=== PATIENT | female | born 1995 | race American Indian/Alaskan Native ===

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

== ENCOUNTER 2017-01-07 23:21 | Emergency (ER) | payer OTHER ==
[~2017-01-07] VITALS: Ht 160 cm; Wt 81.6 kg
[~2017-01-07 23:21] MED LIST changes: +VISTARIL25 MG PO
[2017-01-08] MEDS ORDERED: OMEPRAZOLE20 MG PO (02:24)
--- NOTE | 2017-01-08 08:39 | EKG ---
[facility] [address] [place], [place] [address] Signed Normal sinus rhythm Normal ECG No previous ECGs available Confirmed by DMITRY JAQUEZ MD ([id number]) on 01/08/2017 8:39:47 AM Electronically Signed By: DMITRY JAQUEZ MD 01/08/17 0839 PATIENT NAME: YUE KING Electrocardiogram DATE OF : [birth year] PHYSICIAN: DMITRY JAQUEZ MD REPORT #: [id number] REPORT IS CONFIDENTIAL AND NOT TO BE RELEASED WITHOUT AUTHORIZATION
[2017-04-15] MEDS ORDERED: PYRIDIUM200 MG PO (23:28)
[2017-04-15] MEDS ORDERED: MACROBID 100 M100 MG PO (23:28)
== END 2017-01-08 02:41 | disposition home or self-care (01) ==
LOC: ED 23:21
DX: S80.02XA Contusion of left knee, initial encounter (principal); S80.11XA Contusion of right lower leg, initial encounter; G61.0 Guillain-Barre syndrome; F17.200 Nicotine dependence, unspecified, uncomplicated; Z88.8 Allergy status to other drugs, medicaments and biological substances; Z79.899 Other long term (current) drug therapy; V03.90XA Pedestrian on foot injured in collision with car, pick-up truck or van, unspecified whether traffic or nontraffic accident, initial encounter
CPT/HCPCS: 36415; 71010; 80053; 84484; 85025; 93005; 93010; 99284

== ENCOUNTER 2017-03-02 17:14 | Emergency (ER) | payer OTHER ==
[~2017-03-02] VITALS: Ht 160 cm; Wt 81.7 kg
[2017-04-15] MEDS ORDERED: MACROBID 100 M100 MG PO (23:28)
[2017-04-15] MEDS ORDERED: PYRIDIUM200 MG PO (23:28)
== END 2017-03-02 17:40 | disposition home or self-care (01) ==
LOC: ED 17:14
DX: Z00.8 Encounter for other general examination (principal)

== ENCOUNTER 2017-04-25 18:02 | Emergency (ER) | payer OTHER ==
[~2017-04-25] VITALS: Ht 160 cm; Wt 81.7 kg
[~2017-04-25 18:02] MED LIST changes: +PYRIDIUM200 MG PO
--- NOTE | 2017-04-25 22:26 | EKG ---
[facility] [address] [place] [address] Signed Normal sinus rhythm Normal ECG When compared with ECG of 07-JAN-2017 23:26, No significant change was found Confirmed by DMITRY JAQUEZ MD ([id number]) on 04/25/2017 10:26:22 PM Electronically Signed By: DMITRY JAQUEZ MD 04/25/17 2226 PATIENT NAME: YUE KING Electrocardiogram DATE OF : [birth year] PHYSICIAN: DMITRY JAQUEZ MD REPORT #: [id number] REPORT IS CONFIDENTIAL AND NOT TO BE RELEASED WITHOUT AUTHORIZATION
== END 2017-04-25 20:02 | disposition home or self-care (01) ==
LOC: ED 18:02
DX: R07.2 Precordial pain (principal); F17.200 Nicotine dependence, unspecified, uncomplicated; Z88.6 Allergy status to analgesic agent; Z79.899 Other long term (current) drug therapy
CPT/HCPCS: 71020; 80053; 84484; 85025; 93005; 93010; 99284

== ENCOUNTER 2017-05-05 08:04 | Emergency (ER) | payer OTHER ==
[~2017-05-05] VITALS: Ht 160 cm; Wt 72.6 kg
[2017-05-05] MEDS ORDERED: NORCO 5-325 TA1 EACH PO (09:06)
--- OUTSIDE RECORDS SUMMARY | 2017-05-05 09:06 | XMS | Clinical Summary ---
Demographics + + + | Address | [address] | | | [place] [address] | + + + | Home Phone | | + + + | Preferred Language | Unknown | + + + | Marital Status | Single | + + + | Church Affiliation | NON | + + + | Race | Unknown | + + + | Ethnic Group | Not or | + + + Author + + + | Author | [facility] | + + + | Organization | [facility] | + + + | Address | Unknown | + + + | Phone | Unavailable | + + + Support + + + + + | Name | Relationship | Address | Phone | + + + + + | RUDOLPH, | ECON | [address] | | | YUE | | [place] | | | | | [address] | | + + + + + Care Team Providers + +------+ + | Care Patternmaker Hand Name | Role | Phone | + +------+ + | Emma Arellano MD | PP | Unavailable | + +------+ + Source Comments SALOMÓN is fully live on both [facility] and [facility] InPatient.[facility] Allergies No Known Allergies Current Medications No known medications Active Problems + + + | Problem | Noted Date | + + + | Gait abnormality | 08/10/2012 | + + + | Lower extremity weakness | 08/10/2012 | + + + | Lower extremity pain | 08/10/2012 | + + + Social History + +-------+ +--------+------+ | Tobacco Use | Types | Packs/Day | Years | Date | | | | | Used | | + +-------+ +--------+------+ | Current Every Day | | | | | | Smoker | | | | | + +-------+ +--------+------+ + + + | Sex Assigned at | Date Recorded | | | | + + + | Not on file | | + + + Last Filed Vital Signs + + + + | Vital Sign | Reading | Time Taken | + + + + | Blood Pressure | 118/76 | 07/31/2012 10:04 AM PDT | + + + + | Pulse | 81 | 07/31/2012 10:04 AM PDT | + + + + | Temperature | - | - | + + + + | Respiratory Rate | - | - | + + + + | Oxygen Saturation | - | - | + + + + | Inhaled Oxygen | - | - | | Concentration | | | + + + + | Weight | 60.6 kg (133 lb 9.6 | 07/31/2012 10:04 AM PDT | | | oz) | | + + + + | Height | 160.6 cm (5' 3.23") | 07/31/2012 10:04 AM PDT | + + + + | Body Mass Index | 23.5 | 07/31/2012 10:04 AM PDT | + + + + Plan of Treatment + + + + + | Health Maintenance | Due Date | Last Done | Comments | + + + + + | INFLUENZA VACCINE | | | | | (FLU SHOT) | 7 | | | + + + + + Results Not on filefrom Last 3 Months
== END 2017-05-05 10:12 | disposition home or self-care (01) ==
LOC: ED 08:04
PROC: 2W3CX1Z Immobilization of Right Lower Arm using Splint (ICD-10-PCS; principal; 2017-05-05)
DX: S62.304A Unspecified fracture of fourth metacarpal bone, right hand, initial encounter for closed fracture (principal); S62.306A Unspecified fracture of fifth metacarpal bone, right hand, initial encounter for closed fracture; F17.200 Nicotine dependence, unspecified, uncomplicated; Z88.6 Allergy status to analgesic agent; W22.01XA Walked into wall, initial encounter
CPT/HCPCS: 29125; 73130; 99283

== ENCOUNTER 2017-05-07 14:50 | Emergency (ER) | payer OTHER ==
[~2017-05-07] VITALS: Ht 160 cm; Wt 72.6 kg
[~2017-05-07 14:50] MED LIST changes: +NORCO 5-325 TA1 EACH PO
== END 2017-05-07 15:13 | disposition home or self-care (01) ==
LOC: ED 14:50
DX: S62.304D Unspecified fracture of fourth metacarpal bone, right hand, subsequent encounter for fracture with routine healing (principal); S62.306D Unspecified fracture of fifth metacarpal bone, right hand, subsequent encounter for fracture with routine healing; F17.200 Nicotine dependence, unspecified, uncomplicated; W22.8XXD Striking against or struck by other objects, subsequent encounter; Z88.6 Allergy status to analgesic agent
CPT/HCPCS: 99282

== ENCOUNTER 2017-07-31 20:56 | Emergency (ER) | payer OTHER ==
[~2017-07-31] VITALS: Ht 160 cm; Wt 72.6 kg
--- OUTSIDE RECORDS SUMMARY | ~2017-07-31 | XMS | Clinical Summary ---
Demographics + + + | Address | [address] | | | [place] [address] | + + + | Home Phone | | + + + | Preferred Language | Unknown | + + + | Marital Status | Single | + + + | Samaritan Affiliation | NON | + + + [...] [place] | | | | | [address] | | + + + + + Care Team Providers + +------+ + | Care Drill Runner Helper Name | Role | Phone | + +------+ + | Emma Arellano MD | PP | Unavailable | + +------+ + Source Comments SALOMÓN is fully live on both [facility] and [facility] InPatient.[facility] Allergies No Known Allergies Current Medications No [...]
--- OUTSIDE RECORDS SUMMARY | ~2017-07-31 | XMS | Clinical Summary ---
Demographics + + + | Address | [address] | | | [place] [address] | + + + | Home Phone | | + + + | Preferred Language | Unknown | + + + | Marital Status | Single | + + + | Mu-Ism Affiliation | NON | + + + [...] [place] | | | | | [address] | | + + + + + Care Team Providers + +------+ + | Care Tool Mechanic Name | Role | Phone | + +------+ + | Emma Arellano MD | PP | Unavailable | + +------+ + Source Comments SALOMÓN is fully live on both [facility] and [facility] InPatient.[facility] Allergies No Known Allergies Current Medications No [...]
[2017-07-31] MEDS ORDERED: BACTRIM DS TAB1 EACH PO (21:36)
== END 2017-07-31 21:55 | disposition home or self-care (01) ==
LOC: ED 20:56
PROC: 0H9BXZZ Drainage of Right Upper Arm Skin, External Approach (ICD-10-PCS; principal; 2017-07-31)
DX: L02.411 Cutaneous abscess of right axilla (principal); Z87.891 Personal history of nicotine dependence
CPT/HCPCS: 10060; 87070; 87077; 87186; 87205; 99283

== ENCOUNTER 2017-09-07 19:20 | Emergency (ER) | payer OTHER ==
--- OUTSIDE RECORDS SUMMARY | ~2017-09-07 | XMS | Clinical Summary ---
Demographics + + + | Address | [address] | | | [place] [address] | + + + | Home Phone | | + + + | Preferred Language | Unknown | + + + | Marital Status | Single | + + + | Confucianist Affiliation | Unknown | + + + | Race | Unknown | + + + | Ethnic Group | Unknown | + + + Author + + + | Author | [facility] | | | and [place] | + + + | Organization | [facility] | | | and [place] | + + + | Address | Unknown | + + + | Phone | Unavailable | + + + Support + + +---------+ + | Name | Relationship | Address | Phone | + + +---------+ + | SALVADOR QUEZADA ECON | Unknown | | + + +---------+ + Care Team Providers + +------+ + | Care Product Line Manager Name | Role | Phone | + +------+ + PP | Unavailable | + +------+ + Allergies Not on File Current Medications Not on file Active Problems Not [...] on file | | + + + Plan of Treatment + + + + + | Health Maintenance | Due Date | Last Done | Comments | + + + + + | Vaccine: HPV (1 of 3 | | | | | - Female 3 Dose | 9 | | | | Series) | | | | + + + + + | Vaccine: | | | | | Dtap/Tdap/Td (1 - | 7 | | | | Tdap) | | | | + + + + + | Vaccine: Influenza | | | | | (Season Ended) | 8 | | | + + + + + Results Not on filefrom Last 3 Months"
--- OUTSIDE RECORDS SUMMARY | ~2017-09-07 | XMS | Clinical Summary ---
Demographics + + + | Address | [address] | | | [place] [address] | + + + | Home Phone | | + + + | Preferred Language | Unknown | + + + | Marital Status | Single | + + + | Cheondoism Affiliation | NON | + + + [...] [place] | | | | | [address] | | + + + + + Care Team Providers + +------+ + | Care Aboriginal Education Teacher Name | Role | Phone | + +------+ + | Emma Arellano MD | PP | Unavailable | + +------+ + Source Comments SALOMÓN is fully live on both [facility] and [facility] InPatient.[facility] Allergies No Known Allergies Current Medications [...] | | | | (FLU SHOT) | 8 | | | + + + + + Results Not on filefrom Last 3 Months
--- OUTSIDE RECORDS SUMMARY | ~2017-09-07 | XMS | Clinical Summary ---
Demographics + + + | Address | [address] | | | [place] [address] | + + + | Home Phone | | + + + | Preferred Language | Unknown | + + + | Marital Status | Single | + + + | Hinduism Affiliation | NON | + + + [...] [place] | | | | | [address] | | + + + + + Care Team Providers + +------+ + | Care Community Director Name | Role | Phone | + +------+ + | Emma Arellano MD | PP | Unavailable | + +------+ + Source Comments SALOMÓN is fully live on both [facility] and [facility] InPatient.[facility] Allergies No Known Allergies Current Medications [...]
--- OUTSIDE RECORDS SUMMARY | ~2017-09-07 | XMS | Clinical Summary ---
Demographics + + + | Address | [address] | | | [place] [address] | + + + | Home Phone | | + + + | Preferred Language | Unknown | + + + | Marital Status | Single | + + + | Gnosticist Affiliation | Unknown | + + + | Race | Unknown | + + + | Ethnic Group | Unknown | + + + Author + + + | Author | [facility] | | | and [place] | + + + | Organization | [facility] | | | and [place] [...] Team Providers + +------+ + | Care Electrical Intern Name | Role | Phone | [...]
[~2017-09-07 19:20] MED LIST changes: +BACTRIM DS TAB1 EACH PO
[2017-09-07] MEDS ORDERED: NORCO 5-325 TA1 EACH PO (21:39)
== END 2017-09-07 21:50 | disposition home or self-care (01) ==
LOC: ED 19:20
DX: S16.1XXA Strain of muscle, fascia and tendon at neck level, initial encounter (principal); S40.011A Contusion of right shoulder, initial encounter; S00.83XA Contusion of other part of head, initial encounter; Z88.6 Allergy status to analgesic agent; Z87.891 Personal history of nicotine dependence; V49.9XXA Car occupant (driver) (passenger) injured in unspecified traffic accident, initial encounter
CPT/HCPCS: 70450; 71045; 71260; 72125; 73030; 74177; 80053; 81001; 82150; 82550; 83690; 84703; 85025; 86850; 86900; 86901; 99284; G0480; Q9967

== ENCOUNTER 2017-11-12 14:51 | Emergency (ER) | payer OTHER ==
[~2017-11-12] VITALS: Ht 160 cm; Wt 90.7 kg
== END 2017-11-12 15:24 | disposition home or self-care (01) ==
LOC: ED 14:51
DX: R50.9 Fever, unspecified (principal)

== ENCOUNTER 2019-01-21 17:20 | Emergency (ER) | payer OTHER ==
[~2019-01-21] VITALS: Ht 160 cm; Wt 99.8 kg
--- OUTSIDE RECORDS SUMMARY | 2019-01-21 17:24 | XMS ---
PreManage Notification: YUE KING Security Manager Process Excellence Events No recent Security Events currently on file CRITERIA MET - Group Notification - [facility] - Has Care Guidelines CARE PROVIDERS Christen Holley Primary Care Current ALHAJI PHONE: [phone] William Stanley Current PHONE: Unknown Don[place]on has no Care Guidelines for this patient. Care History Medical/Surgical 11/15/2017 [facility] HX: MARINELLI-BARRE, PERICARDITIS, ABSCESS R AXILLA 08/01/2017 [facility] - Patient can be seen during the week at [facility] for any non emergent medical needs. - [facility] is willing to see patients same day for an apt if patient calls first thing in the morning. - Please refer patient to [facility] for non emergent medical needs. Care Recommendation: This patient has had 5 or more Emergency Department visits in the last 12 months.\T\nbsp; Patient requires education on the scope and purpose of the ED as an acute care provider not a Primary Care Provider and should not be utilized for chronic conditions.\T\nbsp; If patient returns to ED please contact Community Health Worker Nena at [phone]. These are guidelines and the provider should exercise clinical judgment when providing care. EBennieD. VISIT COUNT (12 MO.) 1 [facility] TOTAL 1 NOTE: Visits indicate total known visits. ED/UCC VISIT TRACKING (12 MO.) 01/21/2019 17:21 [facility] [place] TYPE: Emergency COMPLAINT: - ABD PAIN INPATIENT VISIT TRACKING (12 MO.) No inpatient visits to display in this time frame [email or web address]
[2019-01-21] MEDS ORDERED: DICYCLOMINE HCL20 MG PO (21:54)
== END 2019-01-21 22:15 | disposition home or self-care (01) ==
LOC: ED 17:20
DX: R10.31 Right lower quadrant pain (principal); F17.200 Nicotine dependence, unspecified, uncomplicated; Z88.6 Allergy status to analgesic agent
CPT/HCPCS: 74177; 80053; 81001; 83690; 83735; 84703; 85025; 96361; 99284-25; J2270; J2405; J7030; Q9967

== ENCOUNTER 2019-03-01 08:16 | Emergency (ER) | payer OTHER ==
[~2019-03-01] VITALS: Ht 160 cm; Wt 99.8 kg
--- OUTSIDE RECORDS SUMMARY | ~2019-03-01 | XMS | Encounter Summary ---
Demographics + + + | Address | [address] | | | [place] [address] | + + + | Home Phone | | + + + | Preferred Language | Unknown | + + + | Marital Status | Single | + + + | Baptist Affiliation | NON | + + + | Race | Unknown | + + + | Ethnic Group | Not or | + + + Author + + + | Author | [facility] | + + + | Organization | [facility] | + + + | Address | Unknown | + + + | Phone | Unavailable | + + + Support + + + + + | Name | Relationship | Address | Phone | + + + + + | Ede Morales | ECON | [address] | | | | | [place] | | | | | [address] | | + + + + + Care Team Providers + +------+ + | Care Director Of Market Intelligence Name | Role | Phone | + +------+ + | Emma Arellano MD | PCP | | + +------+ + Encounter Details +--------+ + + + + | Date | Type | Department | Care Team | Description | +--------+ + + + + | 01/08/ | Telephone | Pediatric | Gillian Ernandez | | | 2013 | | Neurology at | MD Antwon [address] | | | | | [place] | [address] | | | | | [facility] | [facility] [place] | | | | | [address] | [address] | | | | | Amberly Orta Mailcode: | [phone] | | | | | [address] [place] | | | | | | [place], [place] | | | | | | [address] | | | | | | [phone] | | | +--------+ + + + + Social History + +-------+ +--------+------+ | Tobacco Use | Types | Packs/Day | Years | Date | | | | | Used | | + +-------+ +--------+------+ | Current Every Day | | | | | | Smoker | | | | | + +-------+ +--------+------+ + + +---------+ + | Alcohol Use | Drinks/Week | oz/Week | Comments | + + +---------+ + | Not Asked | | | | + + +---------+ + + + + | Sex Assigned at [...]
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
--- OUTSIDE RECORDS SUMMARY | ~2019-03-01 | XMS | Encounter Summary ---
Demographics + + + | Address | [address] | | | [place] [address] | + + + | Home Phone | | + + + | Preferred Language | Unknown | + + + | Marital Status | Single | + + + | Jain Affiliation | NON | + + + | Race | Unknown | + + + | Ethnic Group | Not or | + + + Author + + + | Author | [facility] | + + + | Organization | [facility] | + + + | Address | Unknown | + + + | Phone | Unavailable | + + + Support + + + + + | Name | Relationship | Address | Phone | + + + + + | Ede Morales | ECON | [address] | | | | | [place] | | | | | [address] | | + + + + + Care Team Providers + +------+ + | Care Printed Circuit Board Pcb Designer Name | Role | Phone | + +------+ + PCP | Unavailable | + +------+ + Encounter Details +--------+ + + + + | Date | Type | Department | Care Team | Description | +--------+ + + + + | 03/28/ | Results | [facility] | Bibi Cannon MD | | | 2001 | Only | [address] [facility] | [address] | | | | | [place] | [facility] | | | | | [address] | [place] [address] | | | | | [phone] | [phone] | | | | | | | [...] as of this encounter Plan of Treatment + + +--------+ + + | Name | Type | Priori | Associated Diagnoses | Date/Time | | | | ty | | | + + +--------+ + + | SEDATION IN 9N | Procedures | Routin | | 03/28/2002 10:55 AM | | | | e | | PST | + + +--------+ + + | SEDATION IN MRI | Procedures | Routin | | 03/29/2002 3:00 PM | | | | e | | PST | + + +--------+ + + documented as of this encounter Procedures + +--------+ + + + | Procedure Name | Priori | Date/Time | Associated Diagnosis | Comments | | | ty | | | | + +--------+ + + + | CHEMISTRY MASTER | Routin | 04/02/2002 | | Results for this | | PANEL | e | 6:01 AM | | procedure are in the | | | | PST | | results section. | + +--------+ + + + | BASIC METABOLIC SET | Routin | 04/02/2002 | | Results for this | | (NA, K, CL, TCO2, | e | 6:01 AM | | procedure are in the | | BUN, CR, GLU, CA) | | PST | | results section. | + +--------+ + + + | BASIC METABOLIC SET | Routin | 04/01/2002 | | Results for this | | (NA, K, CL, TCO2, | e | 7:00 AM | | procedure are in the | | BUN, CR, GLU, CA) | | PST | | results section. | + +--------+ + + + | MRI SPINE LUMBAR WO | Priori | 03/29/2002 | | Results for this | | CONT | ty | 3:25 PM | | procedure are in the | | | | PST | | results section. | + +--------+ + + + | MRI SPINE CERVICAL | Priori | 03/29/2002 | | Results for this | | WO CONTRAST | ty | 3:25 PM | | procedure are in the | | | | PST | | results section. | + +--------+ + + + | MRI PELVIS WWO | Priori | 03/29/2002 | | Results for this | | CONTRAST | ty | 3:25 PM | | procedure are in the | | | | PST | | results section. | + +--------+ + + + | MRI SPINE THORACIC | Priori | 03/29/2002 | | Results for this | | WO CONTRST | ty | 3:23 PM | | procedure are in the | | | | PST | | results section. | + +--------+ + + + | SEDATION IN MRI | Routin | 03/29/2002 | | | | | e | 3:00 PM | | | | | | PST | | | + +--------+ + + + | X-RAY PELVIS 1 VIEW | Priori | 03/28/2002 | | Results for this | | | ty | 2:49 PM | | procedure are in the | | | | PST | | results section. | + +--------+ + + + | SEDATION IN 9N | Routin | 03/28/2002 | | | | | e | 10:55 AM | | | | | | PST | | | + +--------+ + + + | CSF INFO PANEL | Routin | 03/28/2002 | | Results for this | | | e | 10:45 AM | | procedure are in the | | | | PST | | results section. | + +--------+ + + + | GLUCOSE, CSF | Routin | 03/28/2002 | | Results for this | | | e | 10:45 AM | | procedure are in the | | | | PST | | results section. | + +--------+ + + + | CELL COUNT DIFF, CSF | Routin | 03/28/2002 | | Results for this | | | e | 10:45 AM | | procedure are in the | | | | PST | | results section. | + +--------+ + + + | PROTEIN, CSF | Routin | 03/28/2002 | | Results for this | | | e | 10:45 AM | | procedure are in the | | | | PST | | results section. | + +--------+ + + + documented in this encounter Results BASIC METABOLIC SET (04/02/2002 6:01 AM PST) + + + + + + | Component | Value | Ref Range | Performed | Pathologist | | | | | At | Signature | + + + + + + | GLUCOSE, | See cmnt | 60 - 100 mg/dL | [facility] | | | PLASMA | | | DEPARTMENT | | | (LAB) | | | OF | | | | | | PATHOLOGY | | + + + + + + | BUN, PLASMA | See cmnt | 6 - 20 mg/dL | [facility] | | | (LAB) | | | DEPARTMENT | | | | | | OF | | | | | | PATHOLOGY | | + + + + + + | CREATININE | See cmnt | 0.3 - 0.8 mg/dL | [facility] | | | PLASMA | | | DEPARTMENT | | | (LAB) | | | OF | | | | | | PATHOLOGY | | + + + + + + | SODIUM, | See cmnt | 136 - 145 | [facility] | | | PLASMA | | mmol/L | DEPARTMENT | | | (LAB) | | | OF | | | | | | PATHOLOGY | | + + + + + + | POTASSIUM, | See cmnt | 3.5 - 5.1 | [facility] | | | PLASMA | | mmol/L | DEPARTMENT | | | (LAB) | | | OF | | | | | | PATHOLOGY | | + + + + + + | CHLORIDE, | See cmnt | 98 - 107 mmol/L | [facility] | | | PLASMA | | | DEPARTMENT | | | (LAB) | | | OF | | | | | | PATHOLOGY | | + + + + + + | TOTAL CO2, | See cmnt | 23 - 29 mmol/L | [facility] | | | PLASMA | | | DEPARTMENT | | | (LAB) | | | OF | | | | | | PATHOLOGY | | + + + + + + | CALCIUM, | See cmnt | 8.5 - 10.5 | [facility] | | | PLASMA | | mg/dL | DEPARTMENT | | | (LAB) | | | OF | | | | | | PATHOLOGY | | + + + + + + + + | Specimen | + + | | + + + + + | Narrative | Performed At | + + + | [id number] Erroneous request. | [facility] | | | DEPARTMENT OF | | | PATHOLOGY | + + + + + + + + | Performing | Address | City/State/Zipcode | Phone Number | | Organization | | | | + + + + + | [facility] DEPARTMENT OF | [facility] [facility] | [place] [address] | | | PATHOLOGY | [address] | | | + + + + + | [facility] DEPARTMENT OF | [address] [facility] | [place] [address] | | | PATHOLOGY | [address] | | | + + + + + CHEMISTRY MASTER PANEL (04/02/2002 6:01 AM PST) + + | Specimen | + + | | + + + + + | Narrative | Performed At | + + + | [id number] Erroneous request. | [facility] | | | DEPARTMENT OF | | | PATHOLOGY | + + + + + + + + | Performing | Address | City/State/Zipcode | Phone Number | | Organization | | | | + + + + + | [facility] DEPARTMENT OF | [address] | [place] [address] | | | PATHOLOGY | [address] | | | + + + + + | [facility] DEPARTMENT OF | [address] | [place] [address] | | | PATHOLOGY | [address] | | | + + + + + BASIC METABOLIC SET (04/01/2002 7:00 AM PST) + +-------+ + + + | Component | Value | Ref Range | Performed | Pathologist | | | | | At | Signature | + +-------+ + + + | GLUCOSE, | 93 | 60 - 100 mg/dL | [facility] | | | PLASMA | | | DEPARTMENT | | | (LAB) | | | OF | | | | | | PATHOLOGY | | + +-------+ + + + | BUN, PLASMA | 13 | 6 - 20 mg/dL | [facility] | | | (LAB) | | | DEPARTMENT | | | | | | OF | | | | | | PATHOLOGY | | + +-------+ + + + | CREATININE | 0.3 | 0.3 - 0.8 mg/dL | [facility] | | | PLASMA | | | DEPARTMENT | | | (LAB) | | | OF | | | | | | PATHOLOGY | | + +-------+ + + + | SODIUM, | 137 | 136 - 145 | [facility] | | | PLASMA | | mmol/L | DEPARTMENT | | | (LAB) | | | OF | | | | | | PATHOLOGY | | + +-------+ + + + | POTASSIUM, | 4.5 | 3.5 - 5.1 | [facility] | | | PLASMA | | mmol/L | DEPARTMENT | | | (LAB) | | | OF | | | | | | PATHOLOGY | | + +-------+ + + + | CHLORIDE, | 106 | 98 - 107 mmol/L | [facility] | | | PLASMA | | | DEPARTMENT | | | (LAB) | | | OF | | | | | | PATHOLOGY | | + +-------+ + + + | TOTAL CO2, | 23 | 23 - 29 mmol/L | [facility] | | | PLASMA | | | DEPARTMENT | | | (LAB) | | | OF | | | | | | PATHOLOGY | | + +-------+ + + + | CALCIUM, | 10.0 | 8.5 - 10.5 | [facility] | | | PLASMA | | mg/dL | DEPARTMENT | | | (LAB) | | | OF | | | | | | PATHOLOGY | | + +-------+ + + + + + | Specimen | + + | | + + + + + + + | Performing | Address | City/State/Zipcode | Phone Number | | Organization | | | | + + + + + | [facility] | [address] [facility] | [place] [address] | | | PATHOLOGY | [address] | | | + + + + + | [facility] | [facility] [facility] | [facility] [place] [address] | | | PATHOLOGY | [address] | | | + + + + + MRI SPINE LUMBAR WO CONT (03/29/2002 3:25 PM PST) + + + + + + | Component | Value | Ref Range | Performed | Pathologist | | | | | At | Signature | + + + + + + | MR LUMBAR | Radiologist 1: JUS, | | | | | SPINE WO | Ed VELAZQUEZ-Radiologist | | | | | CONT | 2: CAROLINE LUU, | | | | | | EdMRI C SPINE: | | | | | | 03/29/2002 Dictated | | | | | | 03/29/2002 CLINICAL | | | | | | 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 | | | | | | TECHNIQUE: Sagittal and | | | | | | axial T1 and fast-spin | | | | | | echo T2 images | | | | | | wereobtained of the | | | | | | cervical, thoracic and | | | | | | lumbar spine. | | | | | | COMPARISON: MRI of the | | | | | | pelvis with contrast | | | | | | performed of the | | | | | | sameday. FINDINGS: The | | | | | | cervical, thoracic and | | | | | | lumbar vertebrae are | | | | | | normallyaligned with | | | | | | normal marrow signal for | | | | | | the patient's age. | | | | | | The spinalcord has | | | | | | normal signal intensity | | | | | | and appearance with the | | | | | | conusterminating at | | | | | | T12-L1. The visualized | | | | | | paraspinal soft tissues | | | | | | areunremarkable. On | | | | | | comparison with the MR | | | | | | of the pelvis performed | | | | | | withcontrast, | | | | | | enhancement of the nerve | | | | | | roots of L5 and S1 was | | | | | | seenbilaterally. | | | | | | Contrast was not given | | | | | | for the cervical, | | | | | | thoracic andlumbar spine | | | | | | examinations. | | | | | | IMPRESSION: Enhancing | | | | | | lumbosacral nerve roots. | | | | | | This can be seen in | | | | | | Guillian-Boston. END OF | | | | | | IMPRESSION: | | | | + + + + + + + + | Specimen | + + | | + + + +---------+ + + | Performing | Address | City/State/Zipcode | Phone Number | | Organization | | | | + +---------+ + + | [facility] DEPARTMENT OF | | | | | RADIOLOGY | | | | + +---------+ + + MRI SPINE CERVICAL WO CONTRAST (03/29/2002 3:25 PM PST) + + + + + + | Component | Value | Ref Range | Performed | Pathologist | | | | | At | Signature | + + + + + + | MR CERVICAL | Radiologist 1: JUS, | | | | | SPINE WO | Ed VELAZQUEZ-Radiologist | | | | | CONTRAST | 2: CAROLINE LUU, | | | | | | EdMRI C SPINE: | | | | | | 03/29/2002 Dictated | | | | | | 03/29/2002 CLINICAL | | | | | | 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 | | | | | | TECHNIQUE: Sagittal and | | | | | | axial T1 and fast-spin | | | | | | echo T2 images | | | | | | wereobtained of the | | | | | | cervical, thoracic and | | | | | | lumbar spine. | | | | | | COMPARISON: MRI of the | | | | | | pelvis with contrast | | | | | | performed of the | | | | | | sameday. FINDINGS: The | | | | | | cervical, thoracic and | | | | | | lumbar vertebrae are | | | | | | normallyaligned with | | | | | | normal marrow signal for | | | | | | the patient's age. | | | | | | The spinalcord has | | | | | | normal signal intensity | | | | | | and appearance with the | | | | | | conusterminating at | | | | | | T12-L1. The visualized | | | | | | paraspinal soft tissues | | | | | | areunremarkable. On | | | | | | comparison with the MR | | | | | | of the pelvis performed | | | | | | withcontrast, | | | | | | enhancement of the nerve | | | | | | roots of L5 and S1 was | | | | | | seenbilaterally. | | | | | | Contrast was not given | | | | | | for the cervical, | | | | | | thoracic andlumbar spine | | | | | | examinations. | | | | | | IMPRESSION: Enhancing | | | | | | lumbosacral nerve roots. | | | | | | This can be seen in | | | | | | Gladys. END OF | | | | | | IMPRESSION: | | | | + + + + + + + + | Specimen | + + | | + + + +---------+ + + | Performing | Address | City/State/Zipcode | Phone Number | | Organization | | | | + +---------+ + + | [facility] DEPARTMENT OF | | | | | RADIOLOGY | | | | + +---------+ + + MRI PELVIS WWO CONTRAST (03/29/2002 3:25 PM PST) + + + + + + | Component | Value | Ref Range | Performed | Pathologist | | | | | At | Signature | + + + + + + | MR PELVIS | Radiologist 1: IB, | | | | | WWO | GIAN Goodrich-Radiologist | | | | | CONTRAST | 2: GIAN PAT | | | | | | L.MRI OF THE PELVIS: | | | | | | 03/29/2002 | | | | | | Dictated: 03/29/2002 | | | | | | COMPARISON: No | | | | | | comparisons. CLINICAL | | | | | | HISTORY: [id number]-[id number]-awo | | | | | | female with bilateral | | | | | | hip pain. PROCEDURE: | | | | | | The following imaging | | | | | | sequences were | | | | | | obtained:1. Coronal | | | | | | T1.2. Axial and | | | | | | coronal STIR.3. Axial | | | | | | and coronal T1 | | | | | | post-gadolinium with fat | | | | | | suppression (3 | | | | | | cccontrast). FINDINGS: | | | | | | On precontrast images, | | | | | | there is normal marrow | | | | | | signal in thepelvis. | | | | | | Both hip joints are | | | | | | maintained. There is | | | | | | no abnormal jointfluid. | | | | | | There are scattered | | | | | | small right external | | | | | | iliac lymph nodes.No | | | | | | abnormal enlarged lymph | | | | | | nodes or mass is seen | | | | | | within the pelvis. There | | | | | | is subtle asymmetric | | | | | | signal abnormality and | | | | | | enhancement of | | | | | | theposterior-inferior | | | | | | left sacrum abutting the | | | | | | sacroiliac joint. There | | | | | | isno fluid within the | | | | | | sacroiliac joints. | | | | | | There is subtle | | | | | | enhancementin the left | | | | | | piriformis and left | | | | | | gluteal muscles, and | | | | | | very subtleenhancement | | | | | | of the right piriformis. | | | | | | There is no evidence | | | | | | of abscess.The remaining | | | | | | soft tissues are | | | | | | unremarkable. | | | | | | IMPRESSION: 1. Subtle | | | | | | signal abnormality and | | | | | | enhancement involving | | | | | | the leftposterior | | | | | | sacrum, piriformis, and | | | | | | gluteal muscle groups. | | | | | | There isprobable | | | | | | subtle enhancement of | | | | | | the right piriformis as | | | | | | well. This | | | | | | mayrepresent early | | | | | | myositis or | | | | | | sacroiliitis, possibly | | | | | | inflammatory (HBLA27 | | | | | | spondyloarthropathy) or | | | | | | infectious. 2. No | | | | | | evidence of | | | | | | osteonecrosis of the | | | | | | hips. 3. No evidence | | | | | | of abscess. END OF | | | | | | IMPRESSION: | | | | + + + + + + + + | Specimen | + + | | + + + +---------+ + + | Performing | Address | City/State/Zipcode | Phone Number | | Organization | | | | + +---------+ + + | [facility] DEPARTMENT OF | | | | | RADIOLOGY | | | | + +---------+ + + MRI SPINE THORACIC WO CONTRST (03/29/2002 3:23 PM PST) + + + + + + | Component | Value | Ref Range | Performed | Pathologist | | | | | At | Signature | + + + + + + | MR THORACIC | Radiologist 1: JUS | | | | | SPINE WO | Ed VELAZQUEZ-Radiologist | | | | | CONTRST | 2: CAROLINE LUU | | | | | Tiffany WardMRI C SPINE: | | | | | | 03/29/2002 Dictated | | | | | | 03/29/2002 CLINICAL | | | | | | 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 | | | | | | TECHNIQUE: Sagittal and | | | | | | axial T1 and fast-spin | | | | | | echo T2 images | | | | | | wereobtained of the | | | | | | cervical, thoracic and | | | | | | lumbar spine. | | | | | | COMPARISON: MRI of the | | | | | | pelvis with contrast | | | | | | performed of the | | | | | | sameday. FINDINGS: The | | | | | | cervical, thoracic and | | | | | | lumbar vertebrae are | | | | | | normallyaligned with | | | | | | normal marrow signal for | | | | | | the patient's age. | | | | | | The spinalcord has | | | | | | normal signal intensity | | | | | | and appearance with the | | | | | | conusterminating at | | | | | | T12-L1. The visualized | | | | | | paraspinal soft tissues | | | | | | areunremarkable. On | | | | | | comparison with the MR | | | | | | of the pelvis performed | | | | | | withcontrast, | | | | | | enhancement of the nerve | | | | | | roots of L5 and S1 was | | | | | | seenbilaterally. | | | | | | Contrast was not given | | | | | | for the cervical, | | | | | | thoracic andlumbar spine | | | | | | examinations. | | | | | | IMPRESSION: Enhancing | | | | | | lumbosacral nerve roots. | | | | | | This can be seen in | | | | | | Guillian-Boston. END OF | | | | | | IMPRESSION: | | | | + + + + + + + + | Specimen | + + | | + + + +---------+ + + | Performing | Address | City/State/Zipcode | Phone Number | | Organization | | | | + +---------+ + + | [facility] DEPARTMENT OF | | | | | RADIOLOGY | | | | + +---------+ + + PELVIS 1 VIEW (03/28/2002 2:49 PM PST) + + + + + + | Component | Value | Ref Range | Performed | Pathologist | | | | | At | Signature | + + + + + + | PELVIS 1 | Radiologist 1: MARJORIE, | | | | | VIEW | Allie HARRINGTON M.D.AP | | | | | | PELVIS: 03/28/2002 | | | | | | Dictated 03/28/2002 | | | | | | COMPARISON: None. | | | | | | HISTORY: Hip pain. | | | | | | FINDINGS: AP | | | | | | pelvis is obtained with | | | | | | the hips partially | | | | | | flexed andabducted. | | | | | | Both hips appear | | | | | | normal in develop and | | | | | | alignment. There isno | | | | | | evidence for | | | | | | osteonecrosis. Pelvic | | | | | | ring appears normal. | | | | | | Gonadalshield obscures | | | | | | the sacrum. IMPRESSION: | | | | | | Normal bilateral hip | | | | | | radiographs. END OF | | | | | | IMPRESSION: | | | | | | | | | | + + + + + + + + | Specimen | + + | | + + + +---------+ + + | Performing | Address | City/State/Zipcode | Phone Number | | Organization | | | | + +---------+ + + | [facility] DEPARTMENT OF | | | | | RADIOLOGY | | | | + +---------+ + + CSF INFO PANEL (03/28/2002 10:45 AM PST) + + + + + + | Component | Value | Ref Range | Performed | Pathologist | | | | | At | Signature | + + + + + + | CSF | Clear | Clear | [facility] | | | APPEARANCE | | | DEPARTMENT | | | | | | OF | | | | | | PATHOLOGY | | + + + + + + | CSF COLOR | Colorless | Colorless | [facility] | | | | | | DEPARTMENT | | | | | | OF | | | | | | PATHOLOGY | | + + + + + + | CSF TUBE | Tube 2 | | [facility] | | | NUMBER | | | DEPARTMENT | | | | | | OF | | | | | | PATHOLOGY | | + + + + + + + + | Specimen | + + | | + + + + + + + | Performing | Address | City/State/Zipcode | Phone Number | | Organization | | | | + + + + + | [facility] | [facility] | [place] [address] | | | PATHOLOGY | [address] | | | + + + + + | [facility] | [facility] | [place] [address] | | | PATHOLOGY | [address] | | | + + + + + GLUCOSE, CSF (03/28/2002 10:45 AM PST) + +-------+ + + + | Component | Value | Ref Range | Performed | Pathologist | | | | | At | Signature | + +-------+ + + + | GLUCOSE CSF | 59 | 40 - 70 mg/dL | [facility] | | | | | | DEPARTMENT | | | | | | OF | | | | | | PATHOLOGY | | + +-------+ + + + + + | Specimen | + + | | + + + + + + + | Performing | Address | City/State/Zipcode | Phone Number | | Organization | | | | + + + + + | [facility] | [address] | [place] [address] | | | PATHOLOGY | [address] | | | + + + + + | [facility] DEPARTMENT OF | [address] | [place] [address] | | | PATHOLOGY | [address] | | | + + + + + CELL COUNT DIFF, CSF (03/28/2002 10:45 AM PST) + +--------+ + + + | Component | Value | Ref Range | Performed | Pathologist | | | | | At | Signature | + +--------+ + + + | CSF WBC | 4 | <6 /cu mm | [facility] | | | | | | DEPARTMENT | | | | | | OF | | | | | | PATHOLOGY | | + +--------+ + + + | CSF RBC | 13 | /cu mm | [facility] | | | | | | DEPARTMENT | | | | | | OF | | | | | | PATHOLOGY | | + +--------+ + + + | DIFFERENTIA | 100 | | [facility] | | | L CSF | | | DEPARTMENT | | | | | | OF | | | | | | PATHOLOGY | | + +--------+ + + + | NEUTROPHIL( | 1 | <7 % | [facility] | | | CSF) | | | DEPARTMENT | | | | | | OF | | | | | | PATHOLOGY | | + +--------+ + + + | LYMPHOCYTES | 84 (H) | 40 - 80 % | [facility] | | | (CSF) | | | DEPARTMENT | | | | | | OF | | | | | | PATHOLOGY | | + +--------+ + + + | MONOCYTES(C | 11 (L) | 15 - 45 % | [facility] | | | SF) | | | DEPARTMENT | | | | | | OF | | | | | | PATHOLOGY | | + +--------+ + + + | MACROPHAGES | 2 | % | [facility] | | | (CSF) | | | DEPARTMENT | | | | | | OF | | | | | | PATHOLOGY | | + +--------+ + + + | REACTIVE | 2 | % | [facility] | | | LYMPHS(CSF) | | | DEPARTMENT | | | | | | OF | | | | | | PATHOLOGY | | + +--------+ + + + + + | Specimen | + + | | + + + + + + + | Performing | Address | City/State/Zipcode | Phone Number | | Organization | | | | + + + + + | [facility] DEPARTMENT OF | [address] | [place] [address] | | | PATHOLOGY | [address] | | | + + + + + | [facility] DEPARTMENT | [address] | [place] [address] | | | PATHOLOGY | [address] | | | + + + + + PROTEIN, CSF (03/28/2002 10:45 AM PST) + +---------+ + + + | Component | Value | Ref Range | Performed | Pathologist | | | | | At | Signature | + +---------+ + + + | TOTAL | 207 (H) | 15 - 45 mg/dL | [facility] | | | PROTEIN CSF | | | DEPARTMENT | | | | | | OF | | | | | | PATHOLOGY | | + +---------+ + + + + + | Specimen | + + | | + + + + + + + | Performing | Address | City/State/Zipcode | Phone Number | | Organization | | | | + + + + + | [facility] | [address] | [place] [address] | | | PATHOLOGY | [address] | | | + + + + + | [facility] DEPARTMENT OF | [address] | [place] [address] | | | PATHOLOGY | [address] | | | + + + + + documented in this encounter Visit Diagnoses Not on filedocumented in this encounter"
--- OUTSIDE RECORDS SUMMARY | ~2019-03-01 | XMS | Clinical Summary ---
Demographics + + + | Address | [address] | | | [place] [address] | + + + | Home Phone | | + + + | Preferred Language | Unknown | + + + | Marital Status | Single | + + + | Restoration Affiliation | NON | + + + [...] + | Poonam Torres | ECON | [address] [place] [address] | | | | | [place] | | | | | [address] | | + + + + + Care Team Providers + +------+ + | Care Studio Engineer Name | Role | Phone | + +------+ + | Emma Arellano MD | PCP | | + +------+ + Source Comments SALOMÓN is fully live on both [facility] Ambulatory and [facility] InPatient.[facility] Allergies No Known Allergies Medications No known [...] PLUS | | 13-Pre | 6 | [id number] | id | | | OPEN | | sent | | [place], [place] | | | | CARD | | | | [phone] | | + +--------+ +--------+ + +--------+ [...] | 1991 | [phone] | [place] [address] | | | evans | | | 9 (Home) | | + +--------+ +--------+ + +
--- OUTSIDE RECORDS SUMMARY | ~2019-03-01 | XMS | Encounter Summary ---
Demographics + + + | Address | [address] | | | [place] [address] | + + + | Home Phone | | + + + | Preferred Language | Unknown | + + + | Marital Status | Single | + + + | Orthodox Affiliation | NON | + + + | Race | Unknown | + + + | Ethnic Group | Not or | + + + Author + + + | Author | [facility] | + + + | Organization | [facility] | + + + | Address | Unknown | + + + | Phone | Unavailable | + + + Support + + + + + | Name | Relationship | Address | Phone | + + + + + | Ede Morales | ECON | [address] | | | | [place] | | | | | [address] | | + + + + + Care Team Providers + +------+ + | Care Mission Analyst Name | Role | Phone | + [...] | | Neurology at | MD Antwon [address] | | | | | [place] | [address] | | | | | [facility] | [facility] [place] | | | | | [address] | [phone] | | | | | Amberly Orta Mailcode: | [phone] | | | | | [address] | | | | | | [place], [place] | | | | | | [address] | | | | | | [phone] | | | +--------+ + + + [...]
--- OUTSIDE RECORDS SUMMARY | ~2019-03-01 | XMS | Encounter Summary ---
Demographics + + + | Address | [address] | | | [place] [address] | + + + | Home Phone | | + + + | Preferred Language | Unknown | + + + | Marital Status | Single | + + + | Confucianism Affiliation | NON | + + + | Race | Unknown | + + + | Ethnic Group | Not or | + + + Author + + + | Author | [facility] | + + + | Organization | [facility] | + + + | Address | Unknown | + + + | Phone | Unavailable | + + + Support + + + + + | Name | Relationship | Address | Phone | + + + + + | Ede Morales | ECON | [address] | | | | | [place] | | | | | [address] | | + + + + + Care Team Providers + +------+ + | Care Enterer Name | Role | Phone | + [...] (referral for | | | | [facility] | | paraplejia) | | | | [address] | | | | | | [place] Mailcode: | | | | | | [address] | | | | | | [place], [place] | | | | | | [address] | | | | | | [phone] | | | +--------+ + + + [...]
--- OUTSIDE RECORDS SUMMARY | ~2019-03-01 | XMS | Clinical Summary ---
Demographics + + + | Address | [address] | | | [place] [address] | + + + | Home Phone | | + + + | Preferred Language | Unknown | + + + | Marital Status | Single | + + + | Jewish Affiliation | Unknown | + + + | Race | Unknown | + + + | Ethnic Group | Unknown | + + + Author + + + | Author | [facility] | | | and [place] | + + + | Organization | [facility] | | | and [place] [...] Team Providers + +------+ + | Care Shoe Packer Name | Role | Phone | + [...]
--- OUTSIDE RECORDS SUMMARY | ~2019-03-01 | XMS | Clinical Summary ---
Demographics + + + | Address | [address] | | | [place] [address] | + + + | Home Phone | | + + + | Preferred Language | Unknown | + + + | Marital Status | Single | + + + | Congregation Affiliation | NON | + + + [...] + | Poonam Torres | ECON | [address] [place] [address] | | | | | [place] | | | | | [address] | | + + + + + Care Team Providers + +------+ + | Care Machinery Cleaner Name | Role | Phone | + +------+ + | Emma Arellano MD | PCP | | + +------+ + Source Comments SALOMÓN is fully live on both [facility] and [facility] InPatient.[facility] Allergies No Known Allergies Medications No [...] PLUS | | 13-Pre | 6 | [id number] | id | | | OPEN | | sent | | [place], [place] | | | | CARD | | | | [address] | | + +--------+ +--------+ + +--------+ [...] | 1991 | [id number] | [place] [address] | | | evans | | | 9 (Home) | | + +--------+ +--------+ + +
--- OUTSIDE RECORDS SUMMARY | ~2019-03-01 | XMS | Encounter Summary ---
Demographics + + + | Address | [address] | | | [place] [address] | + + + | Home Phone | | + + + | Preferred Language | Unknown | + + + | Marital Status | Single | + + + | Anabaptist Affiliation | NON | + + + | Race | Unknown | + + + | Ethnic Group | Not or | + + + Author + + + | Organization | Unknown | + + + | Address | Unknown | + + + | Phone | Unavailable | + + + Support + + + + + | Name | Relationship | Address | Phone | + + + + + | Ede Morales | ECON | [address] | | | | | [place] | | | | | [address] | | + + + + + Care Team Providers + +------+ + | Care Auto Body Man Name | Role | Phone | + +------+ + PCP | Unavailable | + +------+ + Encounter Details +--------+ + + + + | Date | Type | Department | Care Team | Description | +--------+ + + + + | 04/04/ | Discharge | | Summary, Discharge | D/C Summary ODDS | | 2002 | Summary-Tra | | | | | | nscribed | | | | +--------+ + + [...] + + documented as of this encounter Discharge Summaries Interface, Tread Booker In - 12/11/2005 3:[address] [address] [facility] MEDICAL SUMMARY OF HOSPITALIZATION Med Rec No: [id number] Admission Date: 03/24/2002 Name: Mikayla Weiss Discharge Date: 04/04/2002 ATTENDING PHYSICIAN:Obdulio Galloway M.D. PRINCIPAL FINAL DIAGNOSIS: Guillain-Howard syndrome. ADDITIONAL DIAGNOSES: 1. Neuropathic pain. 2. Decreased mobility. 3. Decreased p.o. intake. PRINCIPAL PROCEDURE: Lumbar puncture. ADDITIONAL PROCEDURES: 1. MRI with and without contrast, total spine and pelvis. 2. Occupational therapy. 3. Physical therapy. 4. Nutrition consult. 5. Pain consult. 6. Neurology consult. 7. Infectious disease consult. 8. Infusion rehab consult. 9 Intravenous immunoglobulin administration. REASON FOR ADMISSION: A 6 -year-old girl admitted from [place] with concern for meningismus with headache, emesis and refuses to walk. She had an lumbar puncture (LP) that showed CSF protein greater of 209 with MRI with lumbosacral enhancement. HOSPITAL COURSE: She was admitted to the general pediatric service. 1. FENGI: She had decreased appetite and decreased p.o. intake. Nutrition consult noted that she had decreased stores at admission and had been having poor intake for several days. They had actually recommended a G-tube. Her p.o. intake gradually improved; and given her irritability, it was felt that simply encouraging her to increase her p.o. intake would be better than placing a G-tube. Her weight remained stable throughout her stay with a discharge weight of 14.4 kg. 2. Infectious disease. Infectious disease consult was obtained at admission. They originally thought that she had post viral myalgias, and their recommendation was for a repeat lumbar puncture. She had had a lumbar puncture at an outside hospital 10 days prior to admission with a protein of 31 and glucose in the mid 60s. The repeat lumbar puncture had a protein of 209, felt to be consistent with Guillain-Howard syndrome. 3. Neurology. Neurology consult was obtained after the CSF protein findings. They suggested a MRI of the total spine with and without contrast. MR showed enhancement of the lumbosacral nerve roots. The patient was started on IV Ig infusions. She received a total of four overnight. The infusions were generally well tolerated. She did have some blood pressure elevated with systolics in the 130s and diastolics in the 90s. However, her blood pressure normalized during the day when she was not getting infusions. She was also started on prednisone initially at 15 mg p.o. b.i.d. for five days and then tapered to 15 mg p.o. q.d., which was started on April 03, 2002, with the plan to continue that dose for five to seven days and then taper. 4. Pain. The patient continued to have significant pain, especially with extension of her legs. Occupational therapy and physical therapy worked with her, and she did have some gradual improvement with tolerating sitting up and tolerating kicking bubbles. She was on scheduled oxycodone 2 mg p.o. q.6h., which was started after hospitalization. She had also been receiving ibuprofen 150 mg q.8h., acetaminophen 225 mg q.6h. After the diagnosis of Guillain-Howard was found, it was expected that her pain would improve quickly with the IV Ig and steroids. The pain only gradually improved, so we started Neurontin at 100 mg p.o. t.i.d. 5. Social. The parents remained in her room and supportive throughout her hospital stay. The inpatient rehab for [facility] was consulted when she was medically stable and felt to be improving. They felt that she was appropriate for inpatient rehab, estimating a xym-xh-arfep-week stay. Those plans were made, and she will be discharged there. CONDITION ON DISCHARGE: Not dictated. DISPOSITION: Not dictated. DISCHARGE INSTRUCTIONS: DIET: Regular. Encouraged ad nohemi diet. ACTIVITY: As tolerated, increasing activity per occupational therapy and physical therapy rehab. FOLLOWUP: With primary care to be determined by the rehab stay. DISCHARGE MEDICATIONS: 1. Oxycodone starting a taper at 1.7 mg p.o. q.6h. starting on April 04, 2002, planning to drop 10% every three to five days. 2. Ibuprofen 150 mg p.o. q.8h. 3. Acetaminophen 225 mg p.o. q.6h. 4. Neurontin 100 mg p.o. t.i.d. 5. Colace 10 mg p.o. q.d. while on narcotics. 6. Ranitidine 3 mg p.o. b.i.d. 7. Prednisone 15 mg p.o. q.d. The first dose q.d. was April 03, 2002. The plan is for that dose for five to seven days and then taper. 8. She received p.r.n. diphenhydramine for sleep. Mitchell Noel M.D. Obdulio Galloway M.D. MS:[id number] cc: [facility] [address] [address] [id number] signed by Interface, Tread Booker In at 12/11/2005 3:09 AM PDTdoc umented in this encounter Plan of Treatment Not on filedocumented as of this encounter Visit Diagnoses Not on filedocumented in this encounter"
--- OUTSIDE RECORDS SUMMARY | ~2019-03-01 | XMS | Encounter Summary ---
Demographics + + + | Address | [address] | | | [place] [address] | + + + | Home Phone [...] Author + + + | Author | [facility] | + + + | Organization | [facility] | + + + | Address | Unknown | + + + | Phone | Unavailable | + + + Support + + + + + | Name | Relationship | Address | Phone | + + + + + | Ede Morales | ECON | [address] | | | | | [place] | | | | | [address] | | + + + + + Care Team Providers + +------+ + | Care Specialist Employee Labor Relations Name | Role | Phone | + [...] | | [place] | [place]ta [facility] | | | | | [facility] | [place] [address] | | | | | [address] | [phone] | | | | | [place] Mailcode: | | | | | | [address] | | | | | | [place], [place] | | | | | | [address] | | | | | | [phone] | | | +--------+ + + + [...] | | | | | performed by [facility] | | | | | [...] [facility] | [address] | [place], [place] | | | [address] [place] | | [address] | | + + + + + [...] by | | | | | | [facility] | | | | | | [facility]. | | | | + + + + + + + + | Specimen | + + | | + + + + + + + | Performing | Address | City/State/Zipcode | Phone Number | | Organization | | | | + + + + + | [facility] | [address] | [place] [address] | | | LABORATORY | | | [...] [facility] | [address] | [place], [place] | | | [address] [place] [facility] [place] | | [address] | | + + + + + [...] | Heavy Metals, Blood Test performed by [employer]. | | + + + + + + + + | Performing | Address | City/State/Zipcode | Phone Number | | Organization | | | | + + + + + | [facility] | [address] | [place], [place] | | | [place] | | [address] | | + + + + + [...] | | | | Test performed by [facility] | | | | | | Laboratories. | | | | + + + + + + + + | Specimen | + + | | + + + + + + + | Performing | Address | City/State[facility] | Phone Number | | Organization | | | | + + + + + | [facility] | [address] | [place], [place] | | | [place] [place] [place] | | [address] | | + + + + + [...] by | | | | | | [facility] [employer]. | | | | + + + + + + + + | Specimen | + + | | + + + + + + + | Performing | Address | City/State/Zipcode | Phone Number | | Organization | | | | + + + + + | [facility] | [address] | [place], [place] | | | [facility] [place] [place] | | [address] | | + + + + + [...] + + + + + | [facility] DEPARTMENT OF | [address] | [place] [address] | | | PATHOLOGY | [address] | | | + + + + + | [facility] DEPARTMENT OF | [address] | [place] [address] | | | PATHOLOGY | [address] [...] + + + + + | [facility] DEPARTMENT | [address] | [place] [address] | | | PATHOLOGY | [address] | | | + + + + + | [facility] | [address] | [place] [address] | | | PATHOLOGY | [address] | | | + + + + + documented in this encounter Visit Diagnoses Not on filedocumented in this encounter"
--- OUTSIDE RECORDS SUMMARY | ~2019-03-01 | XMS | Encounter Summary ---
Demographics + + + | Address | [address] | | | [place] [address] | + + + | Home Phone [...] [place] | | | | | [address] | | + + + + + Care Team Providers + +------+ + | Care Power Grader Operator Name | Role | Phone | [...] as of this encounter Discharge Summaries Interface, Air Cargo Ground Crew Supervisor In - 12/11/2005 3:[address] [address] [facility] MEDICAL SUMMARY OF HOSPITALIZATION Med Rec No: [id number] Admission Date: 03/24/2002 Name: Mikayla Weiss Discharge Date: 04/04/2002 ATTENDING PHYSICIAN:Obdulio Galloway M.D. PRINCIPAL FINAL DIAGNOSIS: Guillain-Saint Clair syndrome. ADDITIONAL DIAGNOSES: 1. Neuropathic pain. 2. [...] ADMISSION: A 6 -year-old girl admitted from [place] with concern for meningismus with headache, emesis [...] of 209, felt to be consistent with Guillain-Saint Clair syndrome. 3. Neurology. Neurology consult was obtained [...] 225 mg q.6h. After the diagnosis of Guillain-Saint Clair was found, it was expected that her [...] was appropriate for inpatient rehab, estimating a xqv-xt-iykjh-week stay. Those plans were made, and she [...] Noel M.D. Obdulio Galloway M.D. MS:[id number] cc: [facility] [address] [address] [id number] signed by Interface, Air Cargo Ground Crew Supervisor In at 12/11/2005 3:09 AM PDTdoc umented in this encounter Plan of Treatment Not on filedocumented as of this encounter Visit Diagnoses Not on filedocumented in this encounter"
--- OUTSIDE RECORDS SUMMARY | ~2019-03-01 | XMS | Encounter Summary ---
Demographics + + + | Address | [address] | | | [place] [address] | + + + | Home Phone | | + + + | Preferred Language | Unknown | + + + | Marital Status | Single | + + + | Moravian Affiliation | NON | + + + | Race | Unknown | + + + | Ethnic Group | Not or | + + + Author + + + | Author | [facility] | + + + | Organization | [facility] | + + + | Address | Unknown | + + + | Phone | Unavailable | + + + Support + + + + + | Name | Relationship | Address | Phone | + + + + + | Ede Morales | ECON | [address] | | | | | [place] | | | | | [address] | | + + + + + Care Team Providers + +------+ + | Care Coal Briquette Machine Operator Name | Role | Phone | [...] | [address] | [address] [facility] | | | | | PCP spoke to | [address] | [address] | | | | | | [address] | [address] | | | | | [place] | [address] | Mailcode: | | | | | about child | Phone: | [address] | | | | | hx of | [phone] | 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[place], [place]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 | [phone] | [address] | | | | | at age 3-4 | | Phone: | | | | | | | [phone] | | | | | | | Fax: | | | | | | | [phone] | +--------+--------+ + + + + Encounter Details +--------+---------+ + + + | Date | Type | Department | Care Team | Description | +--------+---------+ + + + | 07/31/ | Office | Pediatric | Gillian Ernandez | Weakness (Primary | | 2013 | Visit | Neurology at | MD Antwon [address] [facility] | Dx); Gait | | | | [place] | [address] | abnormality; Lower | | | | [facility] | [place], [place] | extremity weakness; | | | | [address] [facility] | [address] | Lower extremity pain | | | | [address] [place] Mailcode: | [phone] | | | | | [address] | | | | | | [place], [place] | | | | | | [address] | | | | | | [phone] | | | +--------+---------+ + + + [...] encounter Patient Instructions Patient Instructions Shanika BENAVIDES, [facility] - 07/31/2012 11:08 AM Ronak was seen [...] have any questions please net us know [phone]. Included for school only: Mikayla was seen in Pediatric Neurology Clinic today. She requires the use of a wheelcha ir for trouble walking. This equipment will enable her to continue to attend classes safely . She will be evaluated by physical therapy and further recommendations regarding equipment needs will be made at that time. Gillian Ernandez MD Pump Assembler of Pediatrics and Neurology [facility] documented in this encounter Progress Notes [...] counseling and coordinating care. Gillian Ernandez MD Pump Assembler of Pediatrics and Neurology [facility] Estrellita BENAVIDES, [facility] - 07/31/2012 10:13 AM PDT . [...] hers". Family History: DM Renal failure RA [place] Review of Systems: A complete review of [...] gait problem. We will defer to her service order dispatcher for the need for further evaluation. S he also has been having pain which might be the reason for the gait problems. She will need evaluation by PT for gait training and rehabilitation. She would also need evaluation with a psychologist for counseling and might need it on the predatory animal exterminator. She denied any [facility] at [facility] or at home. Plan: -Return to PCP [...]
--- OUTSIDE RECORDS SUMMARY | ~2019-03-01 | XMS | Clinical Summary ---
Demographics + + + | Address | [address] | | | [place] [address] | + + + | Home Phone | | + + + | Preferred Language | Unknown | + + + | Marital Status | Single | + + + | Mormonism Affiliation | Unknown | + + + | Race | Unknown | + + + | Ethnic Group | Unknown | + + + Author + + + | Author | [facility] | | | and [place]yana | + + + | Organization | [facility] | | | and [place] | [...] Team Providers + +------+ + | Care Accountant Property Name | Role | Phone | + [...]
--- OUTSIDE RECORDS SUMMARY | ~2019-03-01 | XMS | Encounter Summary ---
Demographics + + + | Address | [address] | | | [place] [address] | + + + | Home Phone [...] [place] | | | | | [address] | | + + + + + Care Team Providers + +------+ + | Care It Instructor Name | Role | Phone | [...]
--- OUTSIDE RECORDS SUMMARY | ~2019-03-01 | XMS | Encounter Summary ---
Demographics + + + | Address | [address] | | | [place] [address] | + + + | Home Phone | | + + + | Preferred Language | Unknown | + + + | Marital Status | Single | + + + | Worship Affiliation | NON | + + + | Race | Unknown | + + + | Ethnic Group | Not or | + + + Author + + + | Author | [facility] | + + + | Organization | [facility] | + + + | Address | Unknown | + + + | Phone | Unavailable | + + + Support + + + + + | Name | Relationship | Address | Phone | + + + + + | Ede Morales | ECON | [address] | | | | | [place] | | | | | [address] | | + + + + + Care Team Providers + +------+ + | Care Concrete Craftsman Name | Role | Phone | + [...] | | | [place] | Elian Orta [facility] | | | | | [facility] | [place] [address] | | | | | [address] | [phone] | | | | | [place] Mailcode: | | | | | | [address] | | | | | | [place], [place] | | | | | | [address] | | | | | | [phone] | | | +--------+ + + + [...] | | | | | performed by [facility] | | | | | | Laboratories. | | | | + + + + + + + + | Specimen | + + | | + + + + + + + | Performing | Address | City/State/Zipcode | Phone Number | | Organization | | | | + + + + + | [facility] | [address] | [place], [place] | | | [facility] [place] [place] | | [address] | | + + + + + [...] by | | | | | | [facility] | | | | | | [facility]. | | | | + + + + + + + + | Specimen | + + | | + + + + + + + | Performing | Address | City/State/Zipcode | Phone Number | | Organization | | | | + + + + + | [facility] | [address] | [place] [address] | | | LABORATORY | | | [...] [facility] | [address] | [place], [place] | | | [facility] [place] | | [address] | | + + + + + [...] | Heavy Metals, Blood Test performed by [employer]. | | + + + + + + + + | Performing | Address | City/State/Zipcode | Phone Number | | Organization | | | | + + + + + | [facility] | [address] | [place], [place] | | | [place] | | [address] | | + + + + + [...] | | | | Test performed by [facility] | | | | | | Laboratories. | | | | + + + + + + + + | Specimen | + + | | + + + + + + + | Performing | Address | City/State/[facility] | Phone Number | | Organization | | | | + + + + + | [facility] | [address] | [place], [place] | | | [place] [place] [place] | | [address] | | + + + + + [...] by | | | | | | [facility] [employer]. | | | | + + + + + + + + | Specimen | + + | | + + + + + + + | Performing | Address | City/State/Zipcode | Phone Number | | Organization | | | | + + + + + | [facility] | [address] | [place], [place] | | | [facility] [place] | | [address] | | + + + + + [...] + + + + + | [facility] DEPARTMENT OF | [address] | [place] [address] | | | PATHOLOGY | [address] | | | + + + + + | [facility] DEPARTMENT OF | [address] | [place] [address] | | | PATHOLOGY | [address] [...] + + + + + | [facility] DEPARTMENT | [address] | [place] [address] | | | PATHOLOGY | [address] | | | + + + + + | [facility] | [address] | [place] [address] | | | PATHOLOGY | [address] | | | + + + + + documented in this encounter Visit Diagnoses Not on filedocumented in this encounter"
--- OUTSIDE RECORDS SUMMARY | ~2019-03-01 | XMS | Encounter Summary ---
Demographics + + + | Address | [address] | | | [place] [address] | + + + | Home Phone | | + + + | Preferred Language | Unknown | + + + | Marital Status | Single | + + + | Orthodoxy Affiliation | NON | + + + | Race | Unknown | + + + | Ethnic Group | Not or | + + + Author + + + | Author | [facility] | + + + | Organization | [facility] | + + + | Address | Unknown | + + + | Phone | Unavailable | + + + Support + + + + + | Name | Relationship | Address | Phone | + + + + + | Ede Morales | ECON | [address] | | | | | [place] | | | | | [address] | | + + + + + Care Team Providers + +------+ + | Care Tailoring Teacher Name | Role | Phone | [...] (referral for | | | | [facility] | | paraplejia) | | | | [address] | | | | | | [place] Mailcode: | | | | | | [address] | | | | | | [place], [place] | | | | | | [address] | | | | | | [phone] | | | +--------+ + + + [...]
--- OUTSIDE RECORDS SUMMARY | ~2019-03-01 | XMS | Encounter Summary ---
Demographics + + + | Address | [address] | | | [place] [address] | + + + | Home Phone | | + + + | Preferred Language | Unknown | + + + | Marital Status | Single | + + + | Muslim Affiliation | NON | + + + | Race | Unknown | + + + | Ethnic Group | Not or | + + + Author + + + | Author | [facility] | + + + | Organization | [facility] | + + + | Address | Unknown | + + + | Phone | Unavailable | + + + Support + + + + + | Name | Relationship | Address | Phone | + + + + + | Ede Morales | ECON | [address] | | | | | [place] | | | | | [address] | | + + + + + Care Team Providers + +------+ + | Care Chair Installer Name | Role | Phone | + +------+ + PCP | Unavailable | + +------+ + Encounter Details +--------+ + + + + | Date | Type | Department | Care Team | Description | +--------+ + + + + | 03/28/ | Results | [facility] | Bibi Cannon MD | | | 2001 | Only | [address] [facility] | [address] | | | | | [place] | [facility] | | | | | [address] | [place] [address] | | | | | [phone] | [phone] | | | | | | | [...] Performed At | + + + | [id number] Erroneous request. | [facility] | | | DEPARTMENT OF | | | PATHOLOGY | + + + + + + + + | Performing | Address | City/State/Zipcode | Phone Number | | Organization | | | | + + + + + | [facility] DEPARTMENT OF | [facility] | [place] [address] | | | PATHOLOGY | [address] | | | + + + + + | [facility] DEPARTMENT OF | [address] [facility] | [place] [address] | | | PATHOLOGY | [address] | | | + + + + + CHEMISTRY MASTER PANEL (04/02/2002 6:01 AM PST) + + | Specimen | + + | | + + + + + | Narrative | Performed At | + + + | [id number] Erroneous request. | [facility] | | | DEPARTMENT OF | | | PATHOLOGY | + + + + + + + + | Performing | Address | City/State/Zipcode | Phone Number | | Organization | | | | + + + + + | [facility] DEPARTMENT OF | [address] | [place] [address] | | | PATHOLOGY | [address] | | | + + + + + | [facility] DEPARTMENT OF | [address] | [place] [address] | | | PATHOLOGY | [address] [...] + + + + + | [facility] | [address] [facility] | [place] [address] | | | PATHOLOGY | [address] | | | + + + + + | [facility] | [facility] | [place] [address] | | | PATHOLOGY | [address] [...] for | | | | | | Guillian-Baker syndrome. | | | | | | [...] in | | | | | | Guillian-Baker. END OF | | | | | [...] for | | | | | | Guillian-Baker syndrome. | | | | | | [...] | | + +---------+ + + | [facility] DEPARTMENT OF | | | | | [...] | | | | | | HISTORY: [id number] | | | | | | female [...] | | + +---------+ + + | [facility] DEPARTMENT OF | | | | | [...] for | | | | | | Guillian-Baker syndrome. | | | | | | [...] in | | | | | | Guillian-Baker. END OF | | | | | [...] | | + +---------+ + + | [facility] DEPARTMENT OF | | | | | [...] | + + + + + | [facility] | [facility] | [place] [address] | | | PATHOLOGY | [address] | | | + + + + + | [facility] DEPARTMENT OF | [facility] [address] | [place] [address] | | | PATHOLOGY | [address] [...] DEPARTMENT OF | [address] | [place] [address] | | | PATHOLOGY | [address] | | | + + + + + | [facility] DEPARTMENT OF | [address] | [place] [address] | | | PATHOLOGY | [address] [...] DEPARTMENT OF | [address] | [place] [address] | | | PATHOLOGY | [address] | | | + + + + + | [facility] DEPARTMENT | [address] | [place] [address] | | | PATHOLOGY | [address] [...] | + + + + + | [facility] | [address] | [place] [address] | | | PATHOLOGY | [address] | | | + + + + + | [facility] DEPARTMENT OF | [address] | [place] [address] | | | PATHOLOGY | [address] | | | + + + + + documented in this encounter Visit Diagnoses Not on filedocumented in this encounter"
--- OUTSIDE RECORDS SUMMARY | ~2019-03-01 | XMS | Encounter Summary ---
Demographics + + + | Address | [address] | | | [place] [address] | + + + | Home Phone | | + + + | Preferred Language | Unknown | + + + | Marital Status | Single | + + + | Anabaptism Affiliation | NON | + + + [...] [place] | | | | | [address] | | + + + + + Care Team Providers + +------+ + | Care After School Tutor Name | Role | Phone | + [...]
[~2019-03-01 08:16] MED LIST changes: +DICYCLOMINE HCL20 MG PO
--- OUTSIDE RECORDS SUMMARY | 2019-03-01 08:18 | XMS ---
PreManage Notification: YUE KING Security Senior Contracts Administrator Events No recent Security Events currently on file CRITERIA MET - Group Notification - [facility] - Has Care Guidelines CARE PROVIDERS ALOK MITCHELL Nurse Practitioner 01/22/2019-Current PHONE: [phone] Christen Holley Primary Care Mell MANE PHONE: [phone] William Stanley Current PHONE: Unknown Donavon has no Care Guidelines for this patient. Care History Medical/Surgical 01/22/2019 [facility] \T\middot;\T\nbsp; PATIENT IS A [employer] MEMBER. \T\middot;\T\nbsp; PLEASE REFER PATIENT TO [facility] FOR NON EMERGENT MEDICAL NEEDS. \T\middot;\ T\nbsp; [facility] CAN SEE PATIENTS SAME DAY FOR APTS IF PATIENT CALLS FIRST THING IN THE MORNING. 11/15/2017 [facility] HX: MARINELLI-BARRE, PERICARDITIS, ABSCESS R AXILLA 08/01/2017 [facility] - Patient can be seen during the week at [facility] for any non emergent medical needs. - [facility] is willing to see patients same day for an apt if patient calls first thing in the morning. - Please refer patient to [facility] for non emergent medical needs. Care Recommendation: This patient has had 5 or more Emergency Department visits in the last 12 months.\T\nbsp; Patient requires education on the scope and purpose of the ED as an acute care provider not a Primary Care Provider and should not be utilized for chronic conditions.\T\nbsp; If patient returns to ED please contact Community Health WorkerNena at [phone]. These are guidelines and the provider should exercise clinical judgment when providing care. E.D. VISIT COUNT (12 MO.) 2 [facility] TOTAL 2 NOTE: Visits indicate total known visits. ED/UCC VISIT TRACKING (12 MO.) 03/01/2019 08:16 [facility] [place] TYPE: Emergency COMPLAINT: - LEFT ANKLE INJURY 01/21/2019 17:21 [facility] [place] TYPE: Emergency COMPLAINT: - ABD PAIN DIAGNOSES: - Right lower quadrant pain - Allergy status to analgesic agent status - Nicotine dependence, unspecified, uncomplicated INPATIENT VISIT TRACKING (12 MO.) No inpatient visits to display in this time frame [email or web address]
[2019-03-01] MEDS ORDERED: NORCO 5-325 TA1 EACH PO (09:52)
== END 2019-03-01 10:00 | disposition home or self-care (01) ==
LOC: ED 08:16
DX: M25.572 Pain in left ankle and joints of left foot (principal); F17.200 Nicotine dependence, unspecified, uncomplicated; Z88.6 Allergy status to analgesic agent
CPT/HCPCS: 73610; 99283-25

== ENCOUNTER 2019-04-02 20:19 | Emergency (ER) | payer OTHER ==
[~2019-04-02] VITALS: Ht 160 cm; Wt 99.8 kg
--- OUTSIDE RECORDS SUMMARY | ~2019-04-02 | XMS | Encounter Summary ---
Demographics + + + | Address | [address] | | | [place] [address] | + + + | Home Phone | | + + + | Preferred Language | Unknown | + + + | Marital Status | Single | + + + | Faith Affiliation | Unknown | + + + | Race | Unknown | + + + | Ethnic Group | Unknown | + + + Author + + + | Author | [facility] | | | and [place] | + + + | Organization | [facility] | | | and [place] [...] Team Providers + +------+ + | Care Vehicle Damage Appraiser Name | Role | Phone | + +------+ + PCP | Unavailable | + +------+ + Encounter Details +--------+ + + + + | Date | Type | Department | Care Team | Description | +--------+ + + + + | 03/18/ | Hospital | [facility] | | | | 2001 | Encounter | MED CTR EMERGENCY | | | | | | [address] | | | | | | [place] | | | | | | [address] | | | | | | [phone] | | | +--------+ + + + [...]
--- OUTSIDE RECORDS SUMMARY | ~2019-04-02 | XMS | Encounter Summary ---
Demographics + + + | Address | [address] | | | [place] [address] | + + + | Home Phone | | + + + | Preferred Language | Unknown | + + + | Marital Status | Single | + + + | Voodoo Affiliation | NON | + + + | Race | Unknown | + + + | Ethnic Group | Not or | + + + Author + + + | Author | [facility] | + + + | Organization | [facility] | + + + | Address | Unknown | + + + | Phone | Unavailable | + + + Support + + + + + | Name | Relationship | Address | Phone | + + + + + | Ede Morales | ECON | [address] | | | | | [place] | | | | | [address] | | + + + + + Care Team Providers + +------+ + | Care Cardiopulmonary Technician And Eeg Tech Name | Role | Phone | + [...] (referral for | | | | [facility] | | paraplejia) | | | | [address] | | | | | | [place] Mailcode: | | | | | | [address] | | | | | | [place], [place] | | | | | | [address] | | | | | | [phone] | | | +--------+ + + + [...]
--- OUTSIDE RECORDS SUMMARY | ~2019-04-02 | XMS | Encounter Summary ---
Demographics + + + | Address | [address] | | | [place] [address] | + + + | Home Phone | | + + + | Preferred Language | Unknown | + + + | Marital Status | Single | + + + | Jewish Affiliation | Unknown | + + + | Race | Unknown | + + + | Ethnic Group | Unknown | + + + Author + + + | Author | [facility] | | | and [place] | + + + | Organization | [facility] | | | and [place] [...] Team Providers + +------+ + | Care Hospice Executive Director Name | Role | Phone | + +------+ + PCP | Unavailable | + +------+ + Encounter Details +--------+ + + + + | Date | Type | Department | Care Team | Description | +--------+ + + + + | 03/19/ | [facility] | [facility] | Bev Pinto | | | 2001 - | Encounter | MED CTR MED ONC | MD Anabela [address] | | | | | [address] | [facility] | | | 03/21/ | | [place] [address] | [place] [address] | | | 2001 | | [phone] | [phone] | | | | | | | [...]
--- OUTSIDE RECORDS SUMMARY | ~2019-04-02 | XMS | Clinical Summary ---
Demographics + + + | Address | [address] | | | [place] [address] | + + + | Home Phone | | + + + | Preferred Language | Unknown | + + + | Marital Status | Single | + + + | Sabianist Affiliation | NON | + + + [...] + | Poonam Torres | ECON | [address] [place] [address] | | | | | [place] | | | | | [address] | | + + + + + Care Team Providers + +------+ + | Care Rn Teacher Name | Role | Phone | + +------+ + | Emma Arellano MD | PCP | | + +------+ + Source Comments SALOMÓN is fully live on both [facility] and [facility] InPatient.[facility] Allergies No Known Allergies Medications No [...] PLUS | | 13-Pre | 6 | [address] | id | | | OPEN | | sent | | [place], [place] | | | | CARD | | | | [address] | | + +--------+ +--------+ + +--------+ [...] | 1991 | [id number] | [place] [address] | | | evans | | | 9 (Home) | | + +--------+ +--------+ + +
--- OUTSIDE RECORDS SUMMARY | ~2019-04-02 | XMS | Encounter Summary ---
Demographics + + + | Address | [address] | | | [place] [address] | + + + | Home Phone | | + + + | Preferred Language | Unknown | + + + | Marital Status | Single | + + + | Holiness Affiliation | Unknown | + + + | Race | Unknown | + + + | Ethnic Group | Unknown | + + + Author + + + | Author | [facility] | | | and [place] | + + + | Organization | [facility] | | | and [place] [...] Team Providers + +------+ + | Care Wood Experimental Mechanic Name | Role | Phone | + +------+ + PCP | Unavailable | + +------+ + Encounter Details +--------+ + + + + | Date | Type | Department | Care Team | Description | +--------+ + + + + | 03/19/ | [facility] | [facility] | Bev Pinto | | | 2001 - | Encounter | MED CTR MED ONC | MD Anabela [address] | | | | | [address] | [facility] | | | 03/21/ | | [place] [address] | [place] [address] | | | 2001 | | [phone] | [phone] | | | | | | | [...]
--- OUTSIDE RECORDS SUMMARY | ~2019-04-02 | XMS | Encounter Summary ---
Demographics + + + | Address | [address] | | | [place] [address] | + + + | Home Phone | | + + + | Preferred Language | Unknown | + + + | Marital Status | Single | + + + | Islam Affiliation | NON | + + + | Race | Unknown | + + + | Ethnic Group | Not or | + + + Author + + + | Author | [facility] | + + + | Organization | [facility] | + + + | Address | Unknown | + + + | Phone | Unavailable | + + + Support + + + + + | Name | Relationship | Address | Phone | + + + + + | Ede Morales | ECON | [address] | | | | | [place] | | | | | [address] | | + + + + + Care Team Providers + +------+ + | Care Net Making Supervisor Name | Role | Phone | + [...] | [address] | [address] [facility] | | | | | PCP spoke to | [address] | [address] | | | | | | [place] | [address] | | | | | [place] | [address] | Mailcode: | | | | | about child | Phone: | [address] | | | | | hx of | [phone] | 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[place], [place]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 | [phone] | [address] | | | | | at age 3-4 | | Phone: | | | | | | | [phone] | | | | | | | Fax: | | | | | | | [phone] | +--------+--------+ + + + + Encounter Details +--------+---------+ + + + | Date | Type | Department | Care Team | Description | +--------+---------+ + + + | 07/31/ | Office | Pediatric | Gillian Ernandez | Weakness (Primary | | 2013 | Visit | Neurology at | MD Antwon [address] [facility] | Dx); Gait | | | | [address] | [address] | abnormality; Lower | | | | [facility] | [place], [place] | extremity weakness; | | | | [address] [facility] | [address] | Lower extremity pain | | | | [address] Mailcode: | [phone] | | | | | [address] | | | | | | [place], [place] | | | | | | [address] | | | | | | [phone] | | | +--------+---------+ + + + [...] encounter Patient Instructions Patient Instructions Shanika [facility], [facility] - 07/31/2012 11:08 AM Ronak was [...] have any questions please net us know [phone]. Included for school only: Mikayla was seen in Pediatric Neurology Clinic today. She requires the use of a wheelcha ir for trouble walking. This equipment will enable her to continue to attend classes safely . She will be evaluated by physical therapy and further recommendations regarding equipment needs will be made at that time. Gillian Ernandez MD Spa Experience Coordinator of Pediatrics and Neurology [facility] documented in this encounter Progress Notes Gillian [...] neurologic disorder on exam. Please see Dr. oVss's note for full details of our impression and recommendations. W e have discussed this together and with the family in great detail. Plan: 1. As per Dr. Voss. The total time spent with the patient and family in clinic today was 70 minutes with greate r than 50% with patient and family counseling and coordinating care. Gillian Ernandez MD Spa Experience Coordinator of Pediatrics and Neurology [facility] Estrellita BENAVIDES, [facility] - 07/31/2012 10:13 AM PDT . [...] hers". Family History: DM Renal failure RA [place] Review of Systems: A complete review of [...] gait problem. 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 S he also has been having pain which might be the reason for the gait problems. She will need evaluation by PT for gait training and rehabilitation. 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 She denied any abuse at [facility] or at home. Plan: -Return to PCP for referral for PT. -Recommend psychology -Consider evaluation for knee problems per PCP. -Follow up in clinic in 6 weeks if no improvement. This patient has been staffed with Dr. Ernandez, attending physician, who agrees with the hossein godinez assessment and plan. MD PATRICIA Salomon MD [...]
--- OUTSIDE RECORDS SUMMARY | ~2019-04-02 | XMS | Encounter Summary ---
Demographics + + + | Address | [address] | | | [place] [address] | + + + | Home Phone [...] [place] | | | | | [address] | | + + + + + Care Team Providers + +------+ + | Care Elevator Constructor Name | Role | Phone | + [...] as of this encounter Discharge Summaries Interface, Tile Erector In - 12/11/2005 3:[address] [address] [facility] MEDICAL SUMMARY OF HOSPITALIZATION Med Rec No: [id number] Admission Date: 03/24/2002 Name: Mikayla Weiss Discharge Date: 04/04/2002 ATTENDING PHYSICIAN:Obdulio Galloway M.D. PRINCIPAL FINAL DIAGNOSIS: Guillain-Boone syndrome. ADDITIONAL DIAGNOSES: 1. Neuropathic pain. 2. 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 3. Neurology. Neurology consult was obtained [...] 225 mg q.6h. After the diagnosis of Guillain-Boone was found, it was expected that her [...] was appropriate for inpatient rehab, estimating a yjj-xn-ylxtu-week stay. Those plans were made, and she [...] Noel M.D. Obdulio Galloway M.D. MS:[id number] cc: [facility] [address] [facility] [address] [id number] signed by Interface, Tile Erector In at 12/11/2005 3:09 AM PDTdoc umented in this encounter Plan of Treatment Not on filedocumented as of this encounter Visit Diagnoses Not on filedocumented in this encounter"
--- OUTSIDE RECORDS SUMMARY | ~2019-04-02 | XMS | Clinical Summary ---
Demographics + + + | Address | [address] | | | [place] [address] | + + + | Home Phone | | + + + | Preferred Language | Unknown | + + + | Marital Status | Single | + + + | Mu-Ism Affiliation | Unknown | + + + | Race | Unknown | + + + | Ethnic Group | Unknown | + + + Author + + + | Author | [facility] | | | and [place] | + + + | Organization | [facility] | | | and [...] Team Providers + +------+ + | Care Oracle Soa Architect Name | Role | Phone | + [...]
--- OUTSIDE RECORDS SUMMARY | ~2019-04-02 | XMS | Encounter Summary ---
Demographics + + + | Address | [address] | | | [place] [address] | + + + | Home Phone | | + + + | Preferred Language | Unknown | + + + | Marital Status | Single | + + + | Latter-Day Affiliation | Unknown | + + + | Race | Unknown | + + + | Ethnic Group | Unknown | + + + Author + + + | Author | [facility] | | | and [place] | + + + | Organization | [facility] | | | and [place] [...] Team Providers + +------+ + | Care Bow Maker Production Name | Role | Phone | + +------+ + PCP | Unavailable | + +------+ + Encounter Details +--------+ + + + + | Date | Type | Department | Care Team | Description | +--------+ + + + + | 04/24/ | Hospital | [facility] | Unknown, | | | 2001 - | Encounter | MED CTR OP REHAB | MD Otoniel | | | | | [address] | [phone] | | | 05/24/ | | [place] [address] | | | | 2002 | | [phone] | | | +--------+ + + + [...]
--- OUTSIDE RECORDS SUMMARY | ~2019-04-02 | XMS | Encounter Summary ---
Demographics + + + | Address | [address] | | | [place] [address] | + + + | Home Phone | | + + + | Preferred Language | Unknown | + + + | Marital Status | Single | + + + | Roman Catholic Affiliation | Unknown | + + + | Race | Unknown | + + + | Ethnic Group | Unknown | + + + Author + + + | Author | [facility] | | | and [place] | + + + | Organization | [facility] | | | and [place] [...] Team Providers + +------+ + | Care Automatic Bandsaw Tender Name | Role | Phone | + +------+ + PCP | Unavailable | + +------+ + Encounter Details +--------+ + + + + | Date | Type | Department | Care Team | Description | +--------+ + + + + | 04/24/ | Hospital | [facility] | Unknown, | | | 2001 - | Encounter | MED CTR OP REHAB | MD Otoniel | | | | | [address] | [phone] | | | 05/24/ | | [place] [address] | | | | 2002 | | [phone] | | | +--------+ + + + [...]
--- OUTSIDE RECORDS SUMMARY | ~2019-04-02 | XMS | Clinical Summary ---
Demographics + + + | Address | [address] | | | [place] [address] | + + + | Home Phone | | + + + | Preferred Language | Unknown | + + + | Marital Status | Single | + + + | Taoist Affiliation | Unknown | + + + | Race | Unknown | + + + | Ethnic Group | Unknown | + + + Author + + + | Author | [facility] | | | and [place] | + + + | Organization | [facility] | | | and [...] Team Providers + +------+ + | Care Aerospace Physiological Technician Name | Role | Phone | [...]
--- OUTSIDE RECORDS SUMMARY | ~2019-04-02 | XMS | Encounter Summary ---
Demographics + + + | Address | [address] | | | [place] [address] | + + + | Home Phone | | + + + | Preferred Language | Unknown | + + + | Marital Status | Single | + + + | Mandaen Affiliation | NON | + + + | Race | Unknown | + + + | Ethnic Group | Not or | + + + Author + + + | Author | [facility] | + + + | Organization | [facility] | + + + | Address | Unknown | + + + | Phone | Unavailable | + + + Support + + + + + | Name | Relationship | Address | Phone | + + + + + | Ede Morales | ECON | [address] | | | | | [place] | | | | | [address] | | + + + + + Care Team Providers + +------+ + | Care Medical Assisting Instructor Name | Role | Phone | + [...] (referral for | | | | [facility] | | paraplejia) | | | | [address] | | | | | | [place] Mailcode: | | | | | | [address] | | | | | | [place], [place] | | | | | | [address] | | | | | | [phone] | | | +--------+ + + + [...]
--- OUTSIDE RECORDS SUMMARY | ~2019-04-02 | XMS | Encounter Summary ---
Demographics + + + | Address | [address] | | | [place] [address] | + + + | Home Phone [...] [place] | | | | | [address] | | + + + + + Care Team Providers + +------+ + | Care Benefits Consulting Analyst Name | Role | Phone | + +------+ + PCP | Unavailable | + +------+ + Encounter Details +--------+ + + + + | Date | Type | Department | Care Team | Description | +--------+ + + + + | 03/28/ | Results | [facility] | Bibi Cannon MD | | | 2001 | Only | [address] [facility] | [address] | | | | | [place] | [place] [facility] | | | | | [address] | [place] [address] | | | | | [phone] | [phone] | | | | | | | [...] Performed At | + + + | [id number] Erroneous request. | [facility] | | | DEPARTMENT OF | | | PATHOLOGY | + + + + + + + + | Performing | Address | City/State/Zipcode | Phone Number | | Organization | | | | + + + + + | [facility] DEPARTMENT OF | [facility] | [place] [address] | | | PATHOLOGY | [address] | | | + + + + + | [facility] DEPARTMENT OF | [address] [facility] | [place] [address] | | | PATHOLOGY | [address] | | | + + + + + CHEMISTRY MASTER PANEL (04/02/2002 6:01 AM PST) + + | Specimen | + + | | + + + + + | Narrative | Performed At | + + + | [id number] Erroneous request. | [facility] | | | DEPARTMENT OF | | | PATHOLOGY | + + + + + + + + | Performing | Address | City/State/Zipcode | Phone Number | | Organization | | | | + + + + + | [facility] DEPARTMENT OF | [address] | [place] [address] | | | PATHOLOGY | [address] | | | + + + + + | [facility] DEPARTMENT OF | [address] | [place] [address] | | | PATHOLOGY | [address] [...] | + + + + + | [facility] | [address] [facility] | [place] [address] | | | PATHOLOGY | [address] | | | + + + + + | [facility] | [facility] | [place] [address] | | | PATHOLOGY | [address] [...] for | | | | | | Guillian-Dallas syndrome. | | | | | | [...] in | | | | | | Guillian-Dallas. END OF | | | | | [...] for | | | | | | Guillian-Dallas syndrome. | | | | | | [...] | | + +---------+ + + | [facility] DEPARTMENT OF | | | | | [...] | | | | | | HISTORY: Doup-wldy-esv | | | | | | female [...] | | + +---------+ + + | [facility] DEPARTMENT OF | | | | | [...] for | | | | | | Guillian-Dallas syndrome. | | | | | | [...] in | | | | | | Guillian-[place]. END OF | | | | | [...] | | | | | VIEW | lAlie HARRINGTON M.D.AP | | | | | [...] | | + +---------+ + + | [facility] DEPARTMENT OF | | | | | [...] | + + + + + | [facility] | [facility] | [place] [address] | | | PATHOLOGY | [address] | | | + + + + + | [facility] DEPARTMENT OF | [facility] | [place] [address] | | | PATHOLOGY | [address] [...] DEPARTMENT OF | [address] | [place] [address] | | | PATHOLOGY | [address] | | | + + + + + | [facility] DEPARTMENT OF | [address] | [place] [address] | | | PATHOLOGY | [address] [...] DEPARTMENT OF | [address] | [place] [address] | | | PATHOLOGY | [address] | | | + + + + + | [facility] DEPARTMENT | [address] | [place] [address] | | | PATHOLOGY | [address] [...] | + + + + + | [facility] | [address] | [place] [address] | | | PATHOLOGY | [address] | | | + + + + + | [facility] DEPARTMENT OF | [address] | [place] [address] | | | PATHOLOGY | [address] | | | + + + + + documented in this encounter Visit Diagnoses Not on filedocumented in this encounter"
--- OUTSIDE RECORDS SUMMARY | ~2019-04-02 | XMS | Encounter Summary ---
Demographics + + + | Address | [address] | | | [place] [address] | + + + | Home Phone | | + + + | Preferred Language | Unknown | + + + | Marital Status | Single | + + + | Scientology Affiliation | NON | + + + | Race | Unknown | + + + | Ethnic Group | Not or | + + + Author + + + | Author | [facility] | + + + | Organization | [facility] | + + + | Address | Unknown | + + + | Phone | Unavailable | + + + Support + + + + + | Name | Relationship | Address | Phone | + + + + + | Ede Morales | ECON | [address] | | | | | [place] | | | | | [address] | | + + + + + Care Team Providers + +------+ + | Care Physicist Solid Earth Name | Role | Phone | + [...]
--- OUTSIDE RECORDS SUMMARY | ~2019-04-02 | XMS | Encounter Summary ---
Demographics + + + | Address | [address] | | | [place] [address] | + + + | Home Phone | | + + + | Preferred Language | Unknown | + + + | Marital Status | Single | + + + | Nondenominational Affiliation | Unknown | + + + | Race | Unknown | + + + | Ethnic Group | Unknown | + + + Author + + + | Author | [facility] | | | and [place]yana | + + + | Organization | [facility] | | | and [place] [...] Team Providers + +------+ + | Care Parts Order And Stock Clerk Name | Role | Phone | + +------+ + PCP | Unavailable | + +------+ + Encounter Details +--------+ + + + + | Date | Type | Department | Care Team | Description | +--------+ + + + + | 03/18/ | Hospital | [facility] | | | | 2001 | Encounter | MED CTR EMERGENCY | | | | | | [address] | | | | | | [place] | | | | | | [address] | | | | | | [phone] | | | +--------+ + + + [...]
--- OUTSIDE RECORDS SUMMARY | ~2019-04-02 | XMS | Encounter Summary ---
Demographics + + + | Address | [address] | | | [place] [address] | + + + | Home Phone | | + + + | Preferred Language | Unknown | + + + | Marital Status | Single | + + + | Evangelical Affiliation | NON | + + + [...] [place] | | | | | [address] | | + + + + + Care Team Providers + +------+ + | Care Senior Loan Processor Name | Role | Phone | + [...]
--- OUTSIDE RECORDS SUMMARY | ~2019-04-02 | XMS | Encounter Summary ---
Demographics + + + | Address | [address] | | | [place] [address] | + + + | Home Phone | | + + + | Preferred Language | Unknown | + + + | Marital Status | Single | + + + | Pentecostalism Affiliation | Unknown | + + + | Race | Unknown | + + + | Ethnic Group | Unknown | + + + Author + + + | Author | [facility] | | | and Fredyana | + + + | Organization | [facility] | | | and [place] | [...] Team Providers + +------+ + | Care Superintendent Ammunition Storage Name | Role | Phone | + +------+ + PCP | Unavailable | + +------+ + Encounter Details +--------+ + + + + | Date | Type | Department | Care Team | Description | +--------+ + + + + | 03/23/ | Hospital | [facility] | | | | 2001 - | Encounter | MED CTR MED ONC | | | | | | [address] | | | | 03/24/ | | [place] [address] | | | | 2001 | | [phone] | | | +--------+ + + + [...]
--- OUTSIDE RECORDS SUMMARY | ~2019-04-02 | XMS | Encounter Summary ---
Demographics + + + | Address | [address] | | | [place] [address] | + + + | Home Phone | | + + + | Preferred Language | Unknown | + + + | Marital Status | Single | + + + | Restorationist Affiliation | NON | + + + [...] [place] | | | | | [address] | | + + + + + Care Team Providers + +------+ + | Care Ware Server Name | Role | Phone | + [...] as of this encounter Discharge Summaries Interface, Sailboat Captain In - 12/11/2005 3:[address] [address] [facility] MEDICAL SUMMARY OF HOSPITALIZATION Med Rec No: [id number] Admission Date: 03/24/2002 Name: Mikayla Weiss Discharge Date: 04/04/2002 ATTENDING PHYSICIAN:Obdulio Galloway M.D. 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 ADDITIONAL DIAGNOSES: 1. Neuropathic pain. 2. 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 3. Neurology. Neurology consult was obtained [...] 225 mg q.6h. After the diagnosis of Guillain-Toomsboro was found, it was expected that her [...] was appropriate for inpatient rehab, estimating a owi-ev-nernn-week stay. Those plans were made, and she [...] Noel M.D. Obdulio Galloway M.D. MS:[id number] cc: [facility] [address] [facility] [address] [id number] signed by Interface, Sailboat Captain In at 12/11/2005 3:09 AM PDTdoc umented in this encounter Plan of Treatment Not on filedocumented as of this encounter Visit Diagnoses Not on filedocumented in this encounter"
--- OUTSIDE RECORDS SUMMARY | ~2019-04-02 | XMS | Encounter Summary ---
Demographics + + + | Address | [address] | | | [place] [address] | + + + | Home Phone [...] Author + + + | Author | [facility] | + + + | Organization | [facility] | + + + | Address | Unknown | + + + | Phone | Unavailable | + + + Support + + + + + | Name | Relationship | Address | Phone | + + + + + | Ede Morales | ECON | [address] | | | | | [place] | | | | | [address] | | + + + + + Care Team Providers + +------+ + | Care Professional Skateboarder Name | Role | Phone | + +------+ + PCP | Unavailable | + +------+ + Encounter Details +--------+ + + + + | Date | Type | Department | Care Team | Description | +--------+ + + + + | 03/28/ | Results | [facility] | Bibi Cannon MD | | | 2001 | Only | [address] [facility] | [address] | | | | | [place] | [address] [facility] | | | | | [address] | [place] [address] | | | | | [phone] | [phone] | | | | | | | [...] Performed At | + + + | [id number] Erroneous request. | [facility] | | | DEPARTMENT OF | | | PATHOLOGY | + + + + + + + + | Performing | Address | City/State/Zipcode | Phone Number | | Organization | | | | + + + + + | [facility] DEPARTMENT OF | [facility] | [place] [address] | | | PATHOLOGY | [address] | | | + + + + + | [facility] DEPARTMENT OF | [address] [facility] | [place] [address] | | | PATHOLOGY | [address] | | | + + + + + CHEMISTRY MASTER PANEL (04/02/2002 6:01 AM PST) + + | Specimen | + + | | + + + + + | Narrative | Performed At | + + + | [id number] Erroneous request. | [facility] | | | DEPARTMENT OF | | | PATHOLOGY | + + + + + + + + | Performing | Address | City/State/Zipcode | Phone Number | | Organization | | | | + + + + + | [facility] DEPARTMENT OF | [address] | [place] [address] | | | PATHOLOGY | [address] | | | + + + + + | [facility] DEPARTMENT OF | [address] | [place] [address] | | | PATHOLOGY | [address] [...] | + + + + + | [facility] | [address] [facility] | [place] [address] | | | PATHOLOGY | [address] | | | + + + + + | [facility] | [facility] | [place] [address] | | | PATHOLOGY | [address] [...] for | | | | | | Guillian-[place] syndrome. | | | | | | [...] in | | | | | | Guillian-[place]. END OF | | | | | [...] for | | | | | | Guillian-Halifax syndrome. | | | | | | [...] | | + +---------+ + + | [facility] DEPARTMENT OF | | | [...] | | | | | | HISTORY: Uiao-ewma-mtm | | | | | | female [...] | | + +---------+ + + | [facility] DEPARTMENT OF | | | [...] for | | | | | | Guillian-Halifax syndrome. | | | | | | [...] in | | | | | | Guillian-[place]. END OF | | | | | [...] | | + +---------+ + + | [facility] DEPARTMENT OF | | | [...] | [facility] | [facility] | [place] [address] | | | PATHOLOGY | [address] | | | + + + + + | [facility] DEPARTMENT OF | [facility] | [place] [address] | | | PATHOLOGY | [address] [...] DEPARTMENT OF | [address] | [place] [address] | | | PATHOLOGY | [address] | | | + + + + + | [facility] DEPARTMENT OF | [address] | [place] [address] | | | PATHOLOGY | [address] [...] DEPARTMENT OF | [address] | [place] [address] | | | PATHOLOGY | [address] | | | + + + + + | [facility] DEPARTMENT | [address] | [place] [address] | | | PATHOLOGY | [address] [...] CENTER OF | [address] | [place] [address] | | | PATHOLOGY | [address] | | | + + + + + | [facility] DEPARTMENT OF | [address] | [place] [address] | | | PATHOLOGY | [address] | | | + + + + + documented in this encounter Visit Diagnoses Not on filedocumented in this encounter"
--- OUTSIDE RECORDS SUMMARY | ~2019-04-02 | XMS | Encounter Summary ---
Demographics + + + | Address | [address] | | | [place] [address] | + + + | Home Phone [...] Author + + + | Author | [facility] | + + + | Organization | [facility] | + + + | Address | Unknown | + + + | Phone | Unavailable | + + + Support + + + + + | Name | Relationship | Address | Phone | + + + + + | Ede Morales | ECON | [address] | | | | | [place] | | | | | [address] | | + + + + + Care Team Providers + +------+ + | Care Telegraph Office Route Aide Name | Role | Phone | + [...] | | Neurology at | MD Antwon [address] | | | | | [place] | [address] | | | | | [facility] | [facility] [place] | | | | | [address] | [address] | | | | | [place] Mailcode: | [phone] | | | | | [address] | | | | | | [place], [place] | | | | | | [address] | | | | | | [phone] | | | +--------+ + + + [...]
--- OUTSIDE RECORDS SUMMARY | ~2019-04-02 | XMS | Clinical Summary ---
Demographics + + + | Address | [address] | | | [place] [address] | + + + | Home Phone [...] + | Poonam Torres | ECON | [address] [place] [address] | | | | | [place] | | | | | [address] | | + + + + + Care Team Providers + +------+ + | Care Flower Machine Operator Name | Role | Phone | + +------+ + | Emma Arellano MD | PCP | | + +------+ + Source Comments SALOMÓN is fully live on both [facility] Ambulatory and [facility] InPatient.[facility] Allergies No Known Allergies Medications No [...] PLUS | | 13-Pre | 6 | 19559 | id | | | OPEN | | sent | | [place], [place] | | | | CARD | | | | [id number] | | + +--------+ +--------+ + +--------+ [...] | 1991 | [id number] | [place] [address] | | | evans | | | 9 (Home) | | + +--------+ +--------+ + +
--- OUTSIDE RECORDS SUMMARY | ~2019-04-02 | XMS | Encounter Summary ---
Demographics + + + | Address | [address] | | | [place] [address] | + + + | Home Phone | | + + + | Preferred Language | Unknown | + + + | Marital Status | Single | + + + | Samaritan Affiliation | Unknown | + + + | Race | Unknown | + + + | Ethnic Group | Unknown | + + + Author + + + | Author | [facility] | | | and [place]yana | + + + | Organization | [facility] | | | and [...] Team Providers + +------+ + | Care Career Transition Specialist Name | Role | Phone | + +------+ + PCP | Unavailable | + +------+ + Encounter Details +--------+ + + + + | Date | Type | Department | Care Team | Description | +--------+ + + + + | 03/23/ | Hospital | [facility] | | | | 2001 - | Encounter | MED CTR MED ONC | | | | | | [address] | | | | 03/24/ | | [place] [address] | | | | 2001 | | [phone] | | | +--------+ + + + [...]
--- OUTSIDE RECORDS SUMMARY | ~2019-04-02 | XMS | Encounter Summary ---
Demographics + + + | Address | [address] | | | [place] [address] | + + + | Home Phone | | + + + | Preferred Language | Unknown | + + + | Marital Status | Single | + + + | Tenriism Affiliation | NON | + + + [...] [place] | | | | | [address] | | + + + + + Care Team Providers + +------+ + | Care Human Resources Operations Coordinator Name | Role | Phone | [...] | [address] | [address] [facility] | | | | | PCP spoke to | [address] | [address] | | | | | | [address] | [address] | | | | | [place] | [address] | Mailcode: | | | | | about child | Phone: | [facility] | | | | | hx of | [phone] | 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[place], [place]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 | [phone] | [address] | | | | | at age 3-4 | | Phone: | | | | | | | [phone] | | | | | | | Fax: | | | | | | | [phone] | +--------+--------+ + + + + Encounter Details +--------+---------+ + + + | Date | Type | Department | Care Team | Description | +--------+---------+ + + + | 07/31/ | Office | Pediatric | Gillian Ernandez | Weakness (Primary | | 2013 | Visit | Neurology at | MD Antwon [address] [facility] | Dx); Gait | | | | [facility] | [address] | abnormality; Lower | | | | [facility] | [place], [place] | extremity weakness; | | | | [address] [facility] | [address] | Lower extremity pain | | | | [place] [place] Mailcode: | [phone] | | | | | [address] | | | | | | [place], [place] | | | | | | [address] | | | | | | [phone] | | | +--------+---------+ + + + [...] encounter Patient Instructions Patient Instructions Shanika BENAVIDES, [facility] - 07/31/2012 11:08 AM Ronak [...] have any questions please net us know [phone]. Included for school only: Mikayla was seen in Pediatric Neurology Clinic today. She requires the use of a wheelcha ir for trouble walking. This equipment will enable her to continue to attend classes safely . She will be evaluated by physical therapy and further recommendations regarding equipment needs will be made at that time. Gillian Ernandez MD Security Shift Manager of Pediatrics and Neurology [facility] documented in this encounter Progress Notes [...] counseling and coordinating care. Gillian Ernandez MD Security Shift Manager of Pediatrics and Neurology [facility] Estrellita [place]NA[place]ES, [facility] - 07/31/2012 10:13 AM PDT . NEUROLOGY [...] hers". Family History: DM Renal failure RA NM Review of Systems: A complete review of [...] gait problem. We will defer to her mechanical operator for the need for further evaluation. S he also has been having pain which might be the reason for the gait problems. She will need evaluation by PT for gait training and rehabilitation. She would also need evaluation with a psychologist for counseling and might need it on the bed bug exterminator. She denied any abuse at [facility] or at home. Plan: -Return to [...]
--- OUTSIDE RECORDS SUMMARY | ~2019-04-02 | XMS | Encounter Summary ---
Demographics + + + | Address | [address] | | | [place] [address] | + + + | Home Phone [...] [place] | | | | | [address] | | + + + + + Care Team Providers + +------+ + | Care Tyre Builder Name | Role | Phone | + [...] | | | [place] | [address] [facility] | | | | | [facility] | [place] [address] | | | | | [address] | [phone] | | | | | [place] Mailcode: | | | | | | [address] | | | | | | [place], [place] | | | | | | [address] | | | | | | [phone] | | | +--------+ + + + [...] | | | | | performed by [facility] | | | | | | Laboratories. | | | | + + + + + + + + | Specimen | + + | | + + + + + + + | Performing | Address | City/State/Zipcode | Phone Number | | Organization | | | | + + + + + | [facility] | [address] | [place], [place] | | | [facility] | | [address] | | + + + + + [...] by | | | | | | [facility] | | | | | | [facility]. | | | | + + + + + + + + | Specimen | + + | | + + + + + + + | Performing | Address | City/State/Zipcode | Phone Number | | Organization | | | | + + + + + | [facility] | [address] | [place] [address] | | | LABORATORY | | | [...] [facility] | [address] | [place], [place] | | | [facility] | | [address] | | + + + + + [...] | Heavy Metals, Blood Test performed by [employer]. | | + + + + + + + + | Performing | Address | City/State/Zipcode | Phone Number | | Organization | | | | + + + + + | [facility] | [address] | [place], [place] | | | [facility] [place] | | [address] | | + + + + + [...] | | | | Test performed by [facility] | | | | | | Laboratories. | | | | + + + + + + + + | Specimen | + + | | + + + + + + + | Performing | Address | City/State/[facility] | Phone Number | | Organization | | | | + + + + + | [facility] | [address] | [place], [place] | | | [facility] [place] | | [address] | | + + + + + [...] by | | | | | | [facility]. | | | | + + + + + + + + | Specimen | + + | | + + + + + + + | Performing | Address | City/State/Zipcode | Phone Number | | Organization | | | | + + + + + | [facility] | [address] | [place], [place] | | | [facility] | | [address] | | + + + + + [...] | + + + + + | [facility] DEPARTMENT OF | [address] | [place] [address] | | | PATHOLOGY | [address] | | | + + + + + | [facility] DEPARTMENT OF | [address] [facility] | [place] [address] | | | PATHOLOGY | [address] [...] | + + + + + | [facility] DEPARTMENT | [address] | [place] [address] | | | PATHOLOGY | [address] | | | + + + + + | [facility] | [address] | [place] [address] | | | PATHOLOGY | [address] | | | + + + + + documented in this encounter Visit Diagnoses Not on filedocumented in this encounter"
--- OUTSIDE RECORDS SUMMARY | ~2019-04-02 | XMS | Encounter Summary ---
Demographics + + + | Address | [address] | | | [place] [address] | + + + | Home Phone | | + + + | Preferred Language | Unknown | + + + | Marital Status | Single | + + + | Muslim Affiliation | Unknown | + + + | Race | Unknown | + + + | Ethnic Group | Unknown | + + + Author + + + | Author | [facility] | | | and [place]yana | + + + | Organization | [facility] | | | and [place] | [...] Team Providers + +------+ + | Care Boat Diesel Motor Mechanic Name | Role | Phone | + +------+ + PCP | Unavailable | + +------+ + Encounter Details +--------+ + + + + | Date | Type | Department | Care Team | Description | +--------+ + + + + | 05/25/ | Hospital | [facility] | Unknown, | | | 2002 - | Encounter | MED CTR OP REHAB | MD Otoniel | | | | | [address] | [phone] | | | 06/24/ | | [place] [address] | | | | 2002 | | [phone] | | | +--------+ + + + [...]
--- OUTSIDE RECORDS SUMMARY | ~2019-04-02 | XMS | Encounter Summary ---
Demographics + + + | Address | [address] | | | [place] [address] | + + + | Home Phone [...] [place] | | | | | [address] | | + + + + + Care Team Providers + +------+ + | Care Special Librarian Name | Role | Phone | + [...] | | Neurology at | MD Antwon [address] | | | | | [place] | [address] | | | | | [facility] | [facility] [place] | | | | | [address] | [address] | | | | | Amberly [place] Mailcode: | [phone] | | | | | [address] | | | | | | [place], [place] | | | | | | [address] | | | | | | [phone] | | | +--------+ + + + [...]
--- OUTSIDE RECORDS SUMMARY | ~2019-04-02 | XMS | Encounter Summary ---
Demographics + + + | Address | [address] | | | [place] [address] | + + + | Home Phone | | + + + | Preferred Language | Unknown | + + + | Marital Status | Single | + + + | Adventism Affiliation | NON | + + + | Race | Unknown | + + + | Ethnic Group | Not or | + + + Author + + + | Author | [facility] | + + + | Organization | [facility] | + + + | Address | Unknown | + + + | Phone | Unavailable | + + + Support + + + + + | Name | Relationship | Address | Phone | + + + + + | dEe Morales | ECON | [address] | | | | | [place] | | | | | [address] | | + + + + + Care Team Providers + +------+ + | Care Paste Up Worker Name | Role | Phone | [...] | | | Shayne | [place] [facility] | | | | | [facility] [[email or web address]] | [place] [address] | | | | | [address] | [phone] | | | | | Elian Orta Mailcode: | | | | | | [address] | | | | | | [place], [place] | | | | | | [address] | | | | | | [phone] | | | +--------+ + + + [...] | | | | | performed by [facility] | | | | | | Laboratories. | | | | + + + + + + + + | Specimen | + + | | + + + + + + + | Performing | Address | City/State/Zipcode | Phone Number | | Organization | | | | + + + + + | [facility] | [address] | [place], [place] | | | [facility] [place] [place] | | [address] | | + + + + + [...] by | | | | | | [facility] | | | | | | [facility]. | | | | + + + + + + + + | Specimen | + + | | + + + + + + + | Performing | Address | City/State/Zipcode | Phone Number | | Organization | | | | + + + + + | [facility] | [address] | [place] [address] | | | LABORATORY | | | [...] [facility] | [address] | [place], [place] | | | [facility] [place] | | [address] | | + + + + + [...] | Heavy Metals, Blood Test performed by [facility]. | | + + + + + + + + | Performing | Address | City/State/Zipcode | Phone Number | | Organization | | | | + + + + + | [facility] | [address] | [place], [place] | | | [place] [facility] [place] | | [address] | | + + + + + [...] | | | | Test performed by [facility] | | | | | | Laboratories. | | | | + + + + + + + + | Specimen | + + | | + + + + + + + | Performing | Address | City/State/[facility] | Phone Number | | Organization | | | | + + + + + | [facility] | [address] | [place], [place] | | | [place] [place] [facility] [place] | | [address] | | + + + + + [...] by | | | | | | [facility] [employer]. | | | | + + + + + + + + | Specimen | + + | | + + + + + + + | Performing | Address | City/State/Zipcode | Phone Number | | Organization | | | | + + + + + | [facility] | [address] | [place], [place] | | | [place] [facility] [place] | | [address] | | + + + + + [...] + + + + + | [facility] DEPARTMENT OF | [address] | [place] [address] | | | PATHOLOGY | [address] | | | + + + + + | [facility] DEPARTMENT OF | [address] | [place] [address] | | | PATHOLOGY | [address] [...] + + + + + | [facility] DEPARTMENT | [address] | [place] [address] | | | PATHOLOGY | [address] | | | + + + + + | [facility] | [address] | [place] [address] | | | PATHOLOGY | [address] | | | + + + + + documented in this encounter Visit Diagnoses Not on filedocumented in this encounter"
--- OUTSIDE RECORDS SUMMARY | ~2019-04-02 | XMS | Encounter Summary ---
Demographics + + + | Address | [address] | | | [place] [address] | + + + | Home Phone | | + + + | Preferred Language | Unknown | + + + | Marital Status | Single | + + + | Taoist Affiliation | Unknown | + + + | Race | Unknown | + + + | Ethnic Group | Unknown | + + + Author + + + | Author | [facility] | | | and [place] | + + + | Organization | [facility] | | | and [place] [...] Team Providers + +------+ + | Care Taxi Driver Name | Role | Phone | + +------+ + PCP | Unavailable | + +------+ + Encounter Details +--------+ + + + + | Date | Type | Department | Care Team | Description | +--------+ + + + + | 05/25/ | Hospital | [facility] | Unknown, | | | 2002 - | Encounter | MED CTR OP REHAB | MD Otoniel | | | | | [address] | [phone] | | | 06/24/ | | [place] [address] | | | | 2002 | | [phone] | | | +--------+ + + + [...]
--- OUTSIDE RECORDS SUMMARY | 2019-04-02 20:22 | XMS ---
PreManage Notification: YUE KING Security Credit Representative Events No recent Security Events currently on file CRITERIA MET - Group Notification - [facility] - Has Care Guidelines CARE PROVIDERS ALOK MITCHELL Nurse Practitioner 01/22/2019-Current PHONE: [phone] Christen Holley Primary Care Mell MANE PHONE: [phone] William Stanley Current PHONE: Unknown [place] has no Care Guidelines for this patient. Care History Medical/Surgical 01/22/2019 [facility] \T\middot;\T\nbsp; PATIENT IS A YELLOWHAWK ELIGIBLE. \T\middot;\T\nbsp; PLEASE REFER PATIENT TO [facility] FOR NON EMERGENT MEDICAL NEEDS. \T\middot;\ T\nbsp; [facility] CAN SEE PATIENTS SAME DAY FOR APTS IF PATIENT CALLS FIRST THING IN THE MORNING. 11/15/2017 [facility] HX: MARINELLI-BARRE, PERICARDITIS, ABSCESS R AXILLA 08/01/2017 [facility] - Patient can be seen during the week at [facility] for any non emergent medical needs. - [facility] is willing to see patients same day for an apt if patient calls first thing in the morning. - Please refer patient to [facility] for non emergent medical needs. Care Recommendation: This patient has had 5 or more Emergency Department visits in the last 12 months. Patient requires education on the scope and purpose of the ED as an acute care provider not a Primary Care Provider and should not be utilized for chronic conditions. If patient returns to ED please contact Community Health WorkerNena at [phone]. These are guidelines and the provider should exercise clinical judgment when providing care. E.D. VISIT COUNT (12 MO.) 3 [facility] TOTAL 3 NOTE: Visits indicate total known visits. ED/UCC VISIT TRACKING (12 MO.) 04/02/2019 20:20 [facility] [place] TYPE: Emergency COMPLAINT: - VAGINAL BLEEDING 03/01/2019 08:16 [facility] [place] TYPE: Emergency COMPLAINT: - LEFT ANKLE INJURY DIAGNOSES: - Allergy status to analgesic agent status - Pain in left ankle and joints of left foot - Pain in right ankle and joints of right foot - Nicotine dependence, unspecified, uncomplicated 01/21/2019 17:21 [facility] [place] TYPE: Emergency COMPLAINT: - ABD PAIN DIAGNOSES: - Right lower quadrant pain - Allergy status to analgesic agent status - Nicotine dependence, unspecified, uncomplicated INPATIENT VISIT TRACKING (12 MO.) No inpatient visits to display in this time frame [email or web address]
== END 2019-04-02 23:16 | disposition home or self-care (01) ==
LOC: ED 20:19
DX: O20.0 Threatened abortion (principal); O99.331 Smoking (tobacco) complicating pregnancy, first trimester; F17.200 Nicotine dependence, unspecified, uncomplicated; Z88.6 Allergy status to analgesic agent; Z3A.01 Less than 8 weeks gestation of pregnancy
CPT/HCPCS: 76801; 76817; 81001; 84702; 85025; 99284-25

== ENCOUNTER 2019-04-05 21:56 | Emergency (ER) | payer OTHER ==
[~2019-04-05] VITALS: Ht 160 cm; Wt 99.8 kg
--- OUTSIDE RECORDS SUMMARY | ~2019-04-05 | XMS | Clinical Summary ---
Demographics + + + | Address | [address] | | | [place] [address] | + + + | Home Phone | | + + + | Preferred Language | Unknown | + + + | Marital Status | Single | + + + | Synagogue Affiliation | Unknown | + + + | Race | Unknown | + + + | Ethnic Group | Unknown | + + + Author + + + | Author | [facility] | | | and [place] | + + + | Organization | [facility] | | | and [place] | + + + | Address | Unknown | + + + | Phone | Unavailable | + + + Support + + +---------+ + | Name | Relationship | Address | Phone | + + +---------+ + | Radha Martin | ECON | Unknown | | + + +---------+ + Care Team Providers + +------+ + | Care Yacht Captain Name | Role | Phone | + +------+ + PCP | Unavailable | + +------+ + Allergies Not on File Medications Not on file Active Problems Not on file Social History + +-------+ +--------+------+ | Tobacco [...] on file | | + + + + + + + | Job Start Date | Occupation | Industry | + + + + | Not on file | Not on file | Not on file | + + + + + + + + | Travel History | Travel Start | Travel End | + + + + + + | No recent travel history available. | + + Last Filed Vital Signs Not on file Plan of Treatment + + + + + | Health Maintenance | Due Date | Last Done | Comments | + + + + + | Well Child Check | | | | | | 1 | | | + + + + + | Vaccine: HPV (1 - | | | | | Female 3-dose | 3 | | | | series) | | | | + + + + + | Vaccine: | | | | | Dtap/Tdap/Td (1 - | 7 | | | | Tdap) | | | | + + + + + | Cervical Cancer | | | | | Screening (Pap) | 9 | | | + + + + + | Vaccine: Influenza | | | | | (#1) | 9 | | | + + + + + Results Not on filefrom Last 3 Months"
--- OUTSIDE RECORDS SUMMARY | ~2019-04-05 | XMS | Encounter Summary ---
Demographics + + + | Address | [address] | | | [place] [address] | + + + | Home Phone | | + + + | Preferred Language | Unknown | + + + | Marital Status | Single | + + + | Episcopalian Affiliation | Unknown | + + + | Race | Unknown | + + + | Ethnic Group | Unknown | + + + Author + + + | Author | [facility] | | | and [place] | + + + | Organization | [facility] | | | and [place] | [...] Team Providers + +------+ + | Care Director Stage Name | Role | Phone | + +------+ + PCP | Unavailable | + +------+ + Encounter Details +--------+ + + + + | Date | Type | Department | Care Team | Description | +--------+ + + + + | 03/23/ | Hospital | [facility] | | | | 2001 - | Encounter | MED CTR MED ONC | | | | | | [address] | | | | 03/24/ | | [place] [address] | | | | 2001 | | [phone] | | | +--------+ + + + [...] recent travel history available. | + + documented as of this encounter Plan of Treatment Not on filedocumented as of this encounter Visit Diagnoses Not on filedocumented in this encounter"
--- OUTSIDE RECORDS SUMMARY | ~2019-04-05 | XMS | Encounter Summary ---
Demographics + + + | Address | [address] | | | [place] [address] | + + + | Home Phone | | + + + | Preferred Language | Unknown | + + + | Marital Status | Single | + + + | Judaism Affiliation | NON | + + + | Race | Unknown | + + + | Ethnic Group | Not or | + + + Author + + + | Author | [facility] | + + + | Organization | [facility] | + + + | Address | Unknown | + + + | Phone | Unavailable | + + + Support + + + + + | Name | Relationship | Address | Phone | + + + + + | Ede Morales | ECON | [address] | | | | | [place] | | | | | [address] | | + + + + + Care Team Providers + +------+ + | Care School Crossing Guard Name | Role | Phone | + +------+ + | Emma Arellano MD | PCP | | + +------+ + Reason for Visit + + + | Reason | Comments | + + + | New patient | referral for paraplejia | | consultation | | + + + Encounter Details +--------+ + + + + | Date | Type | Department | Care Team | Description | +--------+ + + + + | 07/26/ | Documentati | Pediatric | Catie Ashton, | New patient | | 2012 | on | Neurology at | MANUELA Joyce | consultation | | | | [place] | | (referral for | | | | [facility] | | paraplejia) | | | | [address] | | | | | | [place] Mailcode: | | | | | | [address] | | | | | | [place], [place] | | | | | | [address] | | | | | | [phone] | | | +--------+ + + + [...]
--- OUTSIDE RECORDS SUMMARY | ~2019-04-05 | XMS | Encounter Summary ---
Demographics + + + | Address | [address] | | | [place] [address] | + + + | Home Phone | | + + + | Preferred Language | Unknown | + + + | Marital Status | Single | + + + | Baptism Affiliation | Unknown | + + + | Race | Unknown | + + + | Ethnic Group | Unknown | + + + Author + + + | Author | [facility] | | | and [place] | + + + | Organization | [facility] | | | and [place] [...] Team Providers + +------+ + | Care Body Fitter Name | Role | Phone | + +------+ + PCP | Unavailable | + +------+ + Encounter Details +--------+ + + + + | Date | Type | Department | Care Team | Description | +--------+ + + + + | 04/24/ | Hospital | [facility] | Unknown, | | | 2001 - | Encounter | MED CTR OP REHAB | MD Otoniel | | | | | [address] | [phone] | | | 05/24/ | | [place] [address] | | | | 2002 | | [phone] | | | +--------+ + + + [...]
--- OUTSIDE RECORDS SUMMARY | ~2019-04-05 | XMS | Clinical Summary ---
Demographics + + + | Address | [address] | | | [place] [address] | + + + | Home Phone | | + + + | Preferred Language | Unknown | + + + | Marital Status | Single | + + + | Holiness Affiliation | NON | + + + [...] | + + + + + | Poonam Torres | ECON | [address] [place] [address] | | | | | [place] | | | | | [address] | | + + + + + Care Team Providers + +------+ + | Care Fitting Room Associate Name | Role | Phone | + +------+ + | Emma Arellano MD | PCP | | + +------+ + Source Comments SALOMÓN is fully live on both [facility] and [facility] InPatient.[facility] Allergies No Known Allergies Medications No known medications Active Problems + [...] | + + Last Filed Vital Signs + [...] | | + + + + + Plan of Treatment + + + + + | Health Maintenance | Due Date | Last Done | Comments | + + + + + | Pneumococcal | | | | | vaccination (1 of 1 | 4 | | | | - PPSV23) | | | | + + + + + | Influenza (Flu) | | | | | vaccination (#1) | 9 | | | + + + + + Results Not on filefrom Last 3 Months Insurance + +--------+ +--------+ + +--------+ | Payer | Benefi | Subscriber | Effect | Phone | Address | Type | | | t Plan | ID | lawrence | | | | | | / | | Dates | | | | | | Group | | | | | | + +--------+ +--------+ + +--------+ | [place] | OHP | [id number] | 06/15/19 | [phone] | [address] | [address] | | | PLUS | | 13-Pre | 6 | [address] | id | | | OPEN | | sent | | [place], [place] | | | | CARD | | | | [id number] | | + +--------+ +--------+ + +--------+ + +--------+ +--------+ + + | Guarantor Name | Accoun | Relation to | Date | Phone | Billing Address | | | t Type | Patient | of | | | | | | | | | | + +--------+ +--------+ + + | POONAM TORRES | Person | Legal | [birth year] | [birth year] | | | al/Fam | Susanne | 1991 | [phone] | [place] [address] | | | evans | | | 9 (Home) | | + +--------+ +--------+ + +
--- OUTSIDE RECORDS SUMMARY | ~2019-04-05 | XMS | Encounter Summary ---
Demographics + + + | Address | [address] | | | [place] [address] | + + + | Home Phone | | + + + | Preferred Language | Unknown | + + + | Marital Status | Single | + + + | Rastafarian Affiliation | NON | + + + | Race | Unknown | + + + | Ethnic Group | Not or | + + + Author + + + | Author | [facility] | + + + | Organization | [facility] | + + + | Address | Unknown | + + + | Phone | Unavailable | + + + Support + + + + + | Name | Relationship | Address | Phone | + + + + + | Ede Morales | ECON | [address] | | | | | [place] | | | | | [address] | | + + + + + Care Team Providers + +------+ + | Care Nutrition Director Name | Role | Phone | + [...] | | Neurology at | MD Antwon [address] | | | | | [place] | [address] | | | | | [facility] | [facility] [place] | | | | | [address] | [address] | | | | | [place] Mailcode: | [phone] | | | | | [address] | | | | | | [place], [place] | | | | | | [address] | | | | | | [phone] | | | +--------+ + + + [...]
--- OUTSIDE RECORDS SUMMARY | ~2019-04-05 | XMS | Encounter Summary ---
Demographics + + + | Address | [address] | | | [place] [address] | + + + | Home Phone | | + + + | Preferred Language | Unknown | + + + | Marital Status | Single | + + + | Methodist Affiliation | Unknown | + + + | Race | Unknown | + + + | Ethnic Group | Unknown | + + + Author + + + | Author | [facility] | | | and [place] | + + + | Organization | [facility] | | | and [place] | [...] Team Providers + +------+ + | Care Psychological Anthropologist Name | Role | Phone | + +------+ + PCP | Unavailable | + +------+ + Encounter Details +--------+ + + + + | Date | Type | Department | Care Team | Description | +--------+ + + + + | 03/18/ | Hospital | [facility] | | | | 2001 | Encounter | MED CTR EMERGENCY | | | | | | [address] | | | | | | [place] | | | | | | [address] | | | | | | [phone] | | | +--------+ + + + [...]
--- OUTSIDE RECORDS SUMMARY | ~2019-04-05 | XMS | Encounter Summary ---
Demographics + + + | Address | [address] | | | [place] [address] | + + + | Home Phone | | + + + | Preferred Language | Unknown | + + + | Marital Status | Single | + + + | Uatsdin Affiliation | NON | + + + | Race | Unknown | + + + | Ethnic Group | Not or | + + + Author + + + | Author | [facility] | + + + | Organization | [facility] | + + + | Address | Unknown | + + + | Phone | Unavailable | + + + Support + + + + + | Name | Relationship | Address | Phone | + + + + + | dEe Morales | ECON | [address] | | | | | [place] | | | | | [address] | | + + + + + Care Team Providers + +------+ + | Care Rotary Saw Operator Name | Role | Phone | + +------+ + PCP | Unavailable | + +------+ + Encounter Details +--------+ + + + + | Date | Type | Department | Care Team | Description | +--------+ + + + + | 03/25/ | Results | Pediatric | Dylan Diaz MD | | | 2001 | Only | Pulmonogy at | [address] | | | | | [place] | [place] [facility] | | | | | [facility] | [place] [address] | | | | | [address] | [phone] | | | | | [place] Mailcode: | | | | | | [address] | | | | | | [place], [place] | | | | | | [address] | | | | | | [phone] | | | +--------+ + + + [...] | | | | | performed by [facility] | | | | | | Laboratories. | | | | + + + + + + + + | Specimen | + + | | + + + + + + + | Performing | Address | City/State/Zipcode | Phone Number | | Organization | | | | + + + + + | [facility] | [address] | [place], [place] | | | [address] [place] | | [address] | | + + + + + [...] by | | | | | | [facility] | | | | | | [facility]. | | | | + + + + + + + + | Specimen | + + | | + + + + + + + | Performing | Address | City/State/Zipcode | Phone Number | | Organization | | | | + + + + + | [facility] | [address] | [place] [address] | | | LABORATORY | | | [...] [facility] | [address] | [place], [place] | | | [place] [address] [place] | | [address] | | + + + + + [...] | Heavy Metals, Blood Test performed by [email or web address]. | | + + + + + + + + | Performing | Address | City/State/Zipcode | Phone Number | | Organization | | | | + + + + + | [facility] | [address] | [place], [place] | | | [place] | | [address] | | + + + + + [...] | | | | Test performed by [facility] | | | | | | Laboratories. | | | | + + + + + + + + | Specimen | + + | | + + + + + + + | Performing | Address | City/State/[facility] | Phone Number | | Organization | | | | + + + + + | [facility] | [address] | [place], [place] | | | [place] [place] | | [address] | | + + + + + [...] by | | | | | | [facility] [employer]. | | | | + + + + + + + + | Specimen | + + | | + + + + + + + | Performing | Address | City/State/Zipcode | Phone Number | | Organization | | | | + + + + + | [facility] | [address] | [place], [place] | | | [place] [place] | | [address] | | + + + + + [...] | + + + + + | [facility] DEPARTMENT OF | [address] | [place] [address] | | | PATHOLOGY | [address] | | | + + + + + | [facility] DEPARTMENT OF | [address] | [place] [address] | | | PATHOLOGY | [address] [...] | + + + + + | [facility] DEPARTMENT | [address] | [place] [address] | | | PATHOLOGY | [address] | | | + + + + + | [facility] | [address] | [place] [address] | | | PATHOLOGY | [address] | | | + + + + + documented in this encounter Visit Diagnoses Not on filedocumented in this encounter"
--- OUTSIDE RECORDS SUMMARY | ~2019-04-05 | XMS | Encounter Summary ---
Demographics + + + | Address | [address] | | | [place] [address] | + + + | Home Phone | | + + + | Preferred Language | Unknown | + + + | Marital Status | Single | + + + | Scientologist Affiliation | NON | + + + | Race | Unknown | + + + | Ethnic Group | Not or | + + + Author + + + | Author | [facility] | + + + | Organization | [facility] | + + + | Address | Unknown | + + + | Phone | Unavailable | + + + Support + + + + + | Name | Relationship | Address | Phone | + + + + + | Ede Morales | ECON | [address] | | | | | [place] | | | | | [address] | | + + + + + Care Team Providers + +------+ + | Care Jailer Chief Name | Role | Phone | + +------+ + PCP | Unavailable | + +------+ + Encounter Details +--------+ + + + + | Date | Type | Department | Care Team | Description | +--------+ + + + + | 03/28/ | Results | [facility] | Bibi Cannon MD | | | 2001 | Only | [address] [facility] | [address] | | | | | [place] | [facility] | | | | | [address] | [place] [address] | | | | | [phone] | [phone] | | | | | | | [...] Performed At | + + + | [id number] Erroneous request. | [facility] | | | DEPARTMENT OF | | | PATHOLOGY | + + + + + + + + | Performing | Address | City/State/Zipcode | Phone Number | | Organization | | | | + + + + + | [facility] DEPARTMENT OF | [facility] | [place] [address] | | | PATHOLOGY | [address] | | | + + + + + | [facility] DEPARTMENT OF | [address] [facility] | [place] [address] | | | PATHOLOGY | [address] | | | + + + + + CHEMISTRY MASTER PANEL (04/02/2002 6:01 AM PST) + + | Specimen | + + | | + + + + + | Narrative | Performed At | + + + | [id number] Erroneous request. | [facility] | | | DEPARTMENT OF | | | PATHOLOGY | + + + + + + + + | Performing | Address | City/State/Zipcode | Phone Number | | Organization | | | | + + + + + | [facility] DEPARTMENT OF | [address] | [place] [address] | | | PATHOLOGY | [address] | | | + + + + + | [facility] DEPARTMENT OF | [address] | [place] [address] | | | PATHOLOGY | [address] [...] | + + + + + | [facility] | [address] [facility] | [place] [address] | | | PATHOLOGY | [address] | | | + + + + + | [facility] | [facility] | [facility] [place] [address] | | | PATHOLOGY | [address] [...] for | | | | | | Guillian-San Geron[place] syndrome. | | | | | | [...] in | | | | | | Guillian-[place]. END OF | | | | | [...] for | | | | | | Guillian-[place] Geron[place] syndrome. | | | | | | [...] | | + +---------+ + + | [facility] DEPARTMENT OF | | | | | RADIOLOGY | | | | + +---------+ + + MRI PELVIS WWO CONTRAST (03/29/2002 3:25 PM PST) + + + + + + | Component | Value | Ref Range | Performed | Pathologist | | | | | At | Signature | + + + + + + | MR PELVIS | Radiologist 1: BI, | | | | | WWO | [...] | | | | | | HISTORY: [id number] | | | | | | female [...] | | + +---------+ + + | [facility] DEPARTMENT OF | | | | [...] for | | | | | | Guillian-[place] syndrome. | | | | | | [...] in | | | | | | Guillian-[place] G[place]. END OF | | | | | [...] | | + +---------+ + + | [facility] DEPARTMENT OF | | | | [...] | + + + + + | [facility] | [facility] | [place] [address] | | | PATHOLOGY | [address] | | | + + + + + | [facility] DEPARTMENT OF | [facility] | [place] [address] | | | PATHOLOGY | [address] [...] DEPARTMENT OF | [address] | [place] [address] | | | PATHOLOGY | [address] | | | + + + + + | [facility] DEPARTMENT OF | [address] | [place] [address] | | | PATHOLOGY | [address] [...] DEPARTMENT OF | [address] | [place] [address] | | | PATHOLOGY | [address] | | | + + + + + | [facility] DEPARTMENT | [address] | [place] [address] | | | PATHOLOGY | [address] [...] | + + + + + | [facility] | [address] | [place] [address] | | | PATHOLOGY | [address] | | | + + + + + | [facility] DEPARTMENT OF | [address] | [place] [address] | | | PATHOLOGY | [address] | | | + + + + + documented in this encounter Visit Diagnoses Not on filedocumented in this encounter"
--- OUTSIDE RECORDS SUMMARY | ~2019-04-05 | XMS | Encounter Summary ---
Demographics + + + | Address | [address] | | | [place] [address] | + + + | Home Phone | | + + + | Preferred Language | Unknown | + + + | Marital Status | Single | + + + | Mandaeism Affiliation | NON | + + + | Race | Unknown | + + + | Ethnic Group | Not or | + + + Author + + + | Author | [facility] | + + + | Organization | [facility] | + + + | Address | Unknown | + + + | Phone | Unavailable | + + + Support + + + + + | Name | Relationship | Address | Phone | + + + + + | Ede Morales | ECON | [address] | | | | | [place] | | | | | [address] | | + + + + + Care Team Providers + +------+ + | Care Photonics Technician Name | Role | Phone | [...] | | Neurology at | MD Antwon [address] | | | | | [place] | [address] | | | | | [facility] | [facility] [place] | | | | | [address] | [address] | | | | | [place] Mailcode: | [phone] | | | | | [address] | | | | | | [place], [place] | | | | | | [address] | | | | | | [phone] | | | +--------+ + + + [...]
--- OUTSIDE RECORDS SUMMARY | ~2019-04-05 | XMS | Encounter Summary ---
Demographics + + + | Address | [address] | | | [place] [address] | + + + | Home Phone | | + + + | Preferred Language | Unknown | + + + | Marital Status | Single | + + + | Pentecostal Affiliation | Unknown | + + + | Race | Unknown | + + + | Ethnic Group | Unknown | + + + Author + + + | Author | [facility] | | | and [place] | + + + | Organization | [facility] | | | and [place] | [...] Team Providers + +------+ + | Care Crystal Machining Coordinator Name | Role | Phone | + +------+ + PCP | Unavailable | + +------+ + Encounter Details +--------+ + + + + | Date | Type | Department | Care Team | Description | +--------+ + + + + | 04/24/ | Hospital | [facility] | Unknown, | | | 2001 - | Encounter | MED CTR OP REHAB | MD Otoniel | | | | | [address] | [phone] | | | 05/24/ | | [place] [address] | | | | 2002 | | [phone] | | | +--------+ + + + [...]
--- OUTSIDE RECORDS SUMMARY | ~2019-04-05 | XMS | Encounter Summary ---
Demographics + + + | Address | [address] | | | [place] [address] | + + + | Home Phone [...] [place] | | | | | [address] | | + + + + + Care Team Providers + +------+ + | Care Farmer Cash Grain Name | Role | Phone | + [...] as of this encounter Discharge Summaries Interface, Banking Paralegal In - 12/11/2005 3:[address] [address] [facility] MEDICAL SUMMARY OF HOSPITALIZATION Med Rec No: [id number] Admission Date: 03/24/2002 Name: Mikayla Weiss Discharge Date: 04/04/2002 ATTENDING PHYSICIAN:Obdulio Galloway M.D. PRINCIPAL FINAL DIAGNOSIS: Guillain-Piermont syndrome. ADDITIONAL DIAGNOSES: 1. Neuropathic pain. 2. [...] ADMISSION: A 6 -year-old girl admitted from [place] with concern for meningismus with headache, emesis [...] of 209, felt to be consistent with Guillain-Piermont syndrome. 3. Neurology. Neurology consult was obtained [...] 225 mg q.6h. After the diagnosis of Guillain-Piermont was found, it was expected that her [...] was appropriate for inpatient rehab, estimating a jyw-oq-vjdcu-week stay. Those plans were made, and she [...] Noel M.D. Obdulio Galloway M.D. MS:[id number] cc: [facility] [address] [facility] [address] [id number] signed by Interface, Banking Paralegal In at 12/11/2005 3:09 AM PDTdoc umented in this encounter Plan of Treatment Not on filedocumented as of this encounter Visit Diagnoses Not on filedocumented in this encounter"
--- OUTSIDE RECORDS SUMMARY | ~2019-04-05 | XMS | Encounter Summary ---
Demographics + + + | Address | [address] | | | [place] [address] | + + + | Home Phone | | + + + | Preferred Language | Unknown | + + + | Marital Status | Single | + + + | Synagogue Affiliation | NON | + + + [...] [place] | | | | | [address] | | + + + + + Care Team Providers + +------+ + | Care Watermaster Name | Role | Phone | + +------+ + | Emma Arellano MD | PCP | | + +------+ + Encounter Details +--------+ + + + + | Date | Type | Department | Care Team | Description | +--------+ + + + + | 07/14/ | Abstract | [facility] | Emma Arellano MD | | | 2012 | | Department | [address] | | | | | | [place] | | | | | | [address] | | | | | | | [...]
--- OUTSIDE RECORDS SUMMARY | ~2019-04-05 | XMS | Encounter Summary ---
Demographics + + + | Address | [address] | | | [place] [address] | + + + | Home Phone | | + + + | Preferred Language | Unknown | + + + | Marital Status | Single | + + + | Mandaen Affiliation | Unknown | + + + | Race | Unknown | + + + | Ethnic Group | Unknown | + + + Author + + + | Author | [facility] | | | and [place] | + + + | Organization | [facility] | | | and [place] [...] Team Providers + +------+ + | Care Small Parts Shaper Operator Name | Role | Phone | + +------+ + PCP | Unavailable | + +------+ + Encounter Details +--------+ + + + + | Date | Type | Department | Care Team | Description | +--------+ + + + + | 05/25/ | Hospital | [facility] | Unknown, | | | 2002 - | Encounter | MED CTR OP REHAB | MD Otoniel | | | | | [address] | [phone] | | | 06/24/ | | [place] [address] | | | | 2002 | | [phone] | | | +--------+ + + + [...]
--- OUTSIDE RECORDS SUMMARY | ~2019-04-05 | XMS | Encounter Summary ---
Demographics + + + | Address | [address] | | | [place] [address] | + + + | Home Phone | | + + + | Preferred Language | Unknown | + + + | Marital Status | Single | + + + | Christianity Affiliation | NON | + + + | Race | Unknown | + + + | Ethnic Group | Not or | + + + Author + + + | Author | [facility] | + + + | Organization | [facility] | + + + | Address | Unknown | + + + | Phone | Unavailable | + + + Support + + + + + | Name | Relationship | Address | Phone | + + + + + | Ede Morales | ECON | [address] | | | | | [place] | | | | | [address] | | + + + + + Care Team Providers + +------+ + | Care Authorization Nurse Name | Role | Phone | + [...] (referral for | | | | [facility] | | paraplejia) | | | | [address] | | | | | | [place] Mailcode: | | | | | | [address] | | | | | | [place], [place] | | | | | | [address] | | | | | | [phone] | | | +--------+ + + + [...]
--- OUTSIDE RECORDS SUMMARY | ~2019-04-05 | XMS | Encounter Summary ---
Demographics + + + | Address | [address] | | | [place] [address] | + + + | Home Phone [...] Author + + + | Author | [facility] | + + + | Organization | [facility] | + + + | Address | Unknown | + + + | Phone | Unavailable | + + + Support + + + + + | Name | Relationship | Address | Phone | + + + + + | Ede Morales | ECON | [address] | | | | | [place] | | | | | [address] | | + + + + + Care Team Providers + +------+ + | Care Life Guard Name | Role | Phone | [...] | | | [place] | [address] [facility] | | | | | [facility] | [place] [address] | | | | | [address] | [phone] | | | | | [place] Mailcode: | | | | | | [address] | | | | | | [place], [place] | | | | | | [address] | | | | | | [phone] | | | +--------+ + + + [...] | | | | | performed by [facility] | | | | | | Laboratories. | | | | + + + + + + + + | Specimen | + + | | + + + + + + + | Performing | Address | City/State/Zipcode | Phone Number | | Organization | | | | + + + + + | [facility] | [address] | [place], [place] | | | [facility] | | [address] | | + + + + + [...] by | | | | | | [facility] | | | | | | [facility]. | | | | + + + + + + + + | Specimen | + + | | + + + + + + + | Performing | Address | City/State/Zipcode | Phone Number | | Organization | | | | + + + + + | [facility] | [address] | [place] [address] | | | LABORATORY | | | [...] [facility] | [address] | [place], [place] | | | [facility] | | [address] | | + + + + + [...] | Heavy Metals, Blood Test performed by [employer]. | | + + + + + + + + | Performing | Address | City/State/Zipcode | Phone Number | | Organization | | | | + + + + + | [facility] | [address] | [place], [place] | | | [facility] | | [address] | | + + + + + [...] | | | | Test performed by [facility] | | | | | | Laboratories. | | | | + + + + + + + + | Specimen | + + | | + + + + + + + | Performing | Address | City/State/[facility] | Phone Number | | Organization | | | | + + + + + | [facility] | [address] | [place], [place] | | | [facility] | | [address] | | + + + + + [...] by | | | | | | [facility] [employer]. | | | | + + + + + + + + | Specimen | + + | | + + + + + + + | Performing | Address | City/State/Zipcode | Phone Number | | Organization | | | | + + + + + | [facility] | [address] | [place], [place] | | | [facility] | | [address] | | + + + + + [...] | + + + + + | [facility] DEPARTMENT OF | [address] [facility] | [place] [address] | | | PATHOLOGY | [address] | | | + + + + + | [facility] DEPARTMENT OF | [address] [facility] [facility] | [place] [address] | | | PATHOLOGY | [address] [...] | + + + + + | [facility] DEPARTMENT | [address] | [place] [address] | | | PATHOLOGY | [address] | | | + + + + + | [facility] | [address] | [place] [address] | | | PATHOLOGY | [address] | | | + + + + + documented in this encounter Visit Diagnoses Not on filedocumented in this encounter"
--- OUTSIDE RECORDS SUMMARY | ~2019-04-05 | XMS | Clinical Summary ---
Demographics + + + | Address | [address] | | | [place] [address] | + + + | Home Phone [...] + | Poonam Torres | ECON | [address] [place] [address] | | | | | [place] | | | | | [address] | | + + + + + Care Team Providers + +------+ + | Care Recycling Or Rubbish Collector Name | Role | Phone | + +------+ + | Emma Arellano MD | PCP | | + +------+ + Source Comments SALOMÓN is fully live on both [facility] and [facility] InPatient.[facility] Allergies No Known Allergies Medications [...] PLUS | | 13-Pre | 6 | [address] | id | | | OPEN | | sent | | [place], [place] | | | | CARD | | | | [address] | | + +--------+ +--------+ + +--------+ [...] | 1991 | [id number] | [place] [address] | | | evans | | | 9 (Home) | | + +--------+ +--------+ + +
--- OUTSIDE RECORDS SUMMARY | ~2019-04-05 | XMS | Encounter Summary ---
Demographics + + + | Address | [address] | | | [place] [address] | + + + | Home Phone | | + + + | Preferred Language | Unknown | + + + | Marital Status | Single | + + + | Buddhist Affiliation | NON | + + + | Race | Unknown | + + + | Ethnic Group | Not or | + + + Author + + + | Author | [facility] | + + + | Organization | [facility] | + + + | Address | Unknown | + + + | Phone | Unavailable | + + + Support + + + + + | Name | Relationship | Address | Phone | + + + + + | Ede Morales | ECON | [address] | | | | | [place] | | | | | [address] | | + + + + + Care Team Providers + +------+ + | Care Remarketing Rep Name | Role | Phone | + [...] | [address] | [address] | | | | | PCP spoke to | [address] | [address] | | | | | | [place] | [address] | | | | | [place] | [address] | Mailcode: | | | | | about child | Phone: | [address] | | | | | hx of | [phone] | 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[place], [place]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 | [phone] | [address] | | | | | at age 3-4 | | Phone: | | | | | | | [phone] | | | | | | | Fax: | | | | | | | [phone] | +--------+--------+ + + + + Encounter Details +--------+---------+ + + + | Date | Type | Department | Care Team | Description | +--------+---------+ + + + | 07/31/ | Office | Pediatric | Gillian Ernandez | Weakness (Primary | | 2013 | Visit | Neurology at | MD Antwon [address] [facility] | Dx); Gait | | | | [place] | [address] | abnormality; Lower | | | | [facility] | [place], [place] | extremity weakness; | | | | [address] [facility] | [address] | Lower extremity pain | | | | [place] Mailcode: | [phone] | | | | | [address] | | | | | | [place], [place] | | | | | | [address] | | | | | | [phone] | | | +--------+---------+ + + + [...] encounter Patient Instructions Patient Instructions Shanika BENAVIDES, [facility] - 07/31/2012 11:08 AM Ronak was seen [...] have any questions please net us know [phone]. Included for school only: Mikayla was seen in Pediatric Neurology Clinic today. She requires the use of a wheelcha ir for trouble walking. This equipment will enable her to continue to attend classes safely . She will be evaluated by physical therapy and further recommendations regarding equipment needs will be made at that time. Gillian Ernandez MD Automatic Riveting Machine Operator of Pediatrics and Neurology [facility] documented in this encounter Progress Notes Gillian [...] counseling and coordinating care. Gillian Ernandez MD Automatic Riveting Machine Operator of Pediatrics and Neurology [facility] Estrellita BENAVIDES, [facility] - 07/31/2012 10:13 AM PDT . [...] hers". Family History: DM Renal failure RA LA Review of Systems: A complete review of [...] gait problem. We will defer to her resident buyer for the need for further evaluation. S he also has been having pain which might be the reason for the gait problems. She will need evaluation by PT for gait training and rehabilitation. She would also need evaluation with a psychologist for counseling and might need it on the termination clerk. She denied any abuse at [facility] or at home. Plan: -Return to PCP [...]
--- OUTSIDE RECORDS SUMMARY | ~2019-04-05 | XMS | Encounter Summary ---
Demographics + + + | Address | [address] | | | [place] [address] | + + + | Home Phone | | + + + | Preferred Language | Unknown | + + + | Marital Status | Single | + + + | Catholic Affiliation | Unknown | + + + | Race | Unknown | + + + | Ethnic Group | Unknown | + + + Author + + + | Author | and [facility] | | | and [place] | + + + | Organization | [facility] | | | and [place] | [...] Team Providers + +------+ + | Care Branch Examiner Name | Role | Phone | + +------+ + PCP | Unavailable | + +------+ + Encounter Details +--------+ + + + + | Date | Type | Department | Care Team | Description | +--------+ + + + + | 05/25/ | Hospital | [facility] | Unknown, | | | 2002 - | Encounter | MED CTR OP REHAB | MD Otoniel | | | | | [address] | [phone] | | | 06/24/ | | [place] [address] | | | | 2002 | | [phone] | | | +--------+ + + + [...]
--- OUTSIDE RECORDS SUMMARY | ~2019-04-05 | XMS | Encounter Summary ---
Demographics + + + | Address | [address] | | | [place] [address] | + + + | Home Phone | | + + + | Preferred Language | Unknown | + + + | Marital Status | Single | + + + | Evangelical Affiliation | Unknown | + + + | Race | Unknown | + + + | Ethnic Group | Unknown | + + + Author + + + | Author | [facility] | | | and [place] | + + + | Organization | [facility] | | | and [...] Team Providers + +------+ + | Care Grounds Maintenance Worker Name | Role | Phone | + +------+ + PCP | Unavailable | + +------+ + Encounter Details +--------+ + + + + | Date | Type | Department | Care Team | Description | +--------+ + + + + | 03/19/ | [facility] | [facility] | Bev Pinto | | | 2001 - | Encounter | MED CTR MED ONC | MD Anabela [address] | | | | | [address] | [facility] | | | 03/21/ | | [place] [address] | [place] [address] | | | 2001 | | [phone] | [phone] | | | | | | | [...]
--- OUTSIDE RECORDS SUMMARY | ~2019-04-05 | XMS | Encounter Summary ---
Demographics + + + | Address | [address] | | | [place] [address] | + + + | Home Phone | | + + + | Preferred Language | Unknown | + + + | Marital Status | Single | + + + | Christian Affiliation | NON | + + + | Race | Unknown | + + + | Ethnic Group | Not or | + + + Author + + + | Author | [facility] | + + + | Organization | [facility] | + + + | Address | Unknown | + + + | Phone | Unavailable | + + + Support + + + + + | Name | Relationship | Address | Phone | + + + + + | Ede Morales | ECON | [address] | | | | | [place] | | | | | [address] | | + + + + + Care Team Providers + +------+ + | Care Manager Financial Systems Name | Role | Phone | + [...] | [address] | [address] [facility] | | | | | PCP spoke to | GETACHEW GOLD | [address] | | | | | | [place] | Rd | | | | | [place] | [address] | Mailcode: | | | | | about child | Phone: | [facility] | | | | | hx of | [phone] | 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[place], [place]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 | [phone] | [address] | | | | | at age 3-4 | | Phone: | | | | | | | [phone] | | | | | | | Fax: | | | | | | | [phone] | +--------+--------+ + + + + Encounter Details +--------+---------+ + + + | Date | Type | Department | Care Team | Description | +--------+---------+ + + + | 07/31/ | Office | Pediatric | Gillian Ernandez | Weakness (Primary | | 2013 | Visit | Neurology at | MD Antwon [address] [facility] | Dx); Gait | | | | [address] | [address] | abnormality; Lower | | | | [facility] | [place], [place] | extremity weakness; | | | | [address] [facility] | [address] | Lower extremity pain | | | | Amberly Orta Mailcode: | [phone] | | | | | [facility] | | | | | | [place], [place] | | | | | | [address] | | | | | | [phone] | | | +--------+---------+ + + + [...] encounter Patient Instructions Patient Instructions Shanika BENAVIDES, [facility] - 07/31/2012 11:08 AM Ronak was seen [...] have any questions please net us know [phone]. Included for school only: Mikayla was seen in Pediatric Neurology Clinic today. She requires the use of a wheelcha ir for trouble walking. This equipment will enable her to continue to attend classes safely . She will be evaluated by physical therapy and further recommendations regarding equipment needs will be made at that time. Gillian Ernandez MD Transcript Clerk of Pediatrics and Neurology [facility] documented in this encounter Progress [...] counseling and coordinating care. Gillian Ernandez MD Transcript Clerk of Pediatrics and Neurology [facility] Estrellita BENAVIDES, [facility] - 07/31/2012 10:13 AM PDT . NEUROLOGY [...] hers". Family History: DM Renal failure RA ND Review of Systems: A complete review of [...] gait problem. We will defer to her heating equipment repairer for the need for further evaluation. S he also has been having pain which might be the reason for the gait problems. She will need evaluation by PT for gait training and rehabilitation. She would also need evaluation with a psychologist for counseling and might need it on the exterminator helper. She denied any abuse at [facility] or at home. Plan: -Return to PCP [...]
--- OUTSIDE RECORDS SUMMARY | ~2019-04-05 | XMS | Encounter Summary ---
Demographics + + + | Address | [address] | | | [place] [address] | + + + | Home Phone | | + + + | Preferred Language | Unknown | + + + | Marital Status | Single | + + + | Nondenominational Affiliation | NON | + + + [...] [place] | | | | | [address] | | + + + + + Care Team Providers + +------+ + | Care Wafer Slicer Name | Role | Phone | + +------+ + PCP | Unavailable | + +------+ + Encounter Details +--------+ + + + + | Date | Type | Department | Care Team | Description | +--------+ + + + + | 03/28/ | Results | [facility] | Bibi Cannon MD | | | 2001 | Only | [address] [facility] | [address] | | | | | [place] | [place] [facility] | | | | | [address] | [place] [address] | | | | | [phone] | [phone] | | | | | | | [...] Performed At | + + + | [id number] Erroneous request. | [facility] | | | DEPARTMENT OF | | | PATHOLOGY | + + + + + + + + | Performing | Address | City/State/Zipcode | Phone Number | | Organization | | | | + + + + + | [facility] DEPARTMENT OF | [facility] | [place] [address] | | | PATHOLOGY | [address] | | | + + + + + | [facility] DEPARTMENT OF | [address] [facility] | [place] [address] | | | PATHOLOGY | [address] | | | + + + + + CHEMISTRY MASTER PANEL (04/02/2002 6:01 AM PST) + + | Specimen | + + | | + + + + + | Narrative | Performed At | + + + | [id number] Erroneous request. | [facility] | | | DEPARTMENT OF | | | PATHOLOGY | + + + + + + + + | Performing | Address | City/State/Zipcode | Phone Number | | Organization | | | | + + + + + | [facility] DEPARTMENT OF | [address] | [place] [address] | | | PATHOLOGY | [address] | | | + + + + + | [facility] DEPARTMENT OF | [address] | [place] [address] | | | PATHOLOGY | [address] [...] | + + + + + | [facility] | [address] [facility] | [place] [address] | | | PATHOLOGY | [address] | | | + + + + + | [facility] | [facility] | [place] [address] | | | PATHOLOGY | [address] [...] for | | | | | | Guillian-Lovington syndrome. | | | | | | [...] in | | | | | | Guillian-Lovington. END OF | | | | | [...] for | | | | | | Guillian-Lovington syndrome. | | | | | | [...] | + +---------+ + + | [facility] DEPARTMENT OF | | | | [...] | | | | | WWO | GINA Goodrich-Radiologist | | | | | CONTRAST | 2: GIAN PAT | | | | | | L.MRI OF THE PELVIS: | | | | | | 03/29/2002 | | | | | | Dictated: 03/29/2002 | | | | | | COMPARISON: No | | | | | | comparisons. CLINICAL | | | | | | HISTORY: Ivan-mxdw-pbi | | | | | | female [...] | + +---------+ + + | [facility] DEPARTMENT OF | | | | [...] for | | | | | | Guillian-Lovington syndrome. | | | | | | [...] in | | | | | | Guillian-Lovington. END OF | | | | | [...] | + +---------+ + + | [facility] DEPARTMENT OF | | | | [...] | + + + + + | [facility] | [facility] | [place] [address] | | | PATHOLOGY | [address] | | | + + + + + | [place] DEPARTMENT OF | [facility] | [place] [address] | | | PATHOLOGY | [address] [...] DEPARTMENT OF | [address] | [place] [address] | | | PATHOLOGY | [address] | | | + + + + + | [facility] DEPARTMENT OF | [address] | [place] [address] | | | PATHOLOGY | [address] [...] DEPARTMENT OF | [address] | [place] [address] | | | PATHOLOGY | [address] | | | + + + + + | [facility] DEPARTMENT | [address] | [place] [address] | | | PATHOLOGY | [address] [...] | + + + + + | [facility] | [address] | [place] [address] | | | PATHOLOGY | [address] | | | + + + + + | [facility] DEPARTMENT OF | [address] | [place] [address] | | | PATHOLOGY | [address] | | | + + + + + documented in this encounter Visit Diagnoses Not on filedocumented in this encounter"
--- OUTSIDE RECORDS SUMMARY | ~2019-04-05 | XMS | Clinical Summary ---
Demographics + + + | Address | [address] [facility] [address] | | | [place] [address] | + + + | Home Phone [...] + + + | Author | [facility] | | | and [place] | + + + | Organization | [facility] | | | and [place] [...] Team Providers + +------+ + | Care Pairer Odds Name | Role | Phone | + [...]
--- OUTSIDE RECORDS SUMMARY | ~2019-04-05 | XMS | Encounter Summary ---
Demographics + + + | Address | [address] | | | [place] [address] | + + + | Home Phone | | + + + | Preferred Language | Unknown | + + + | Marital Status | Single | + + + | Alevism Affiliation | Unknown | + + + | Race | Unknown | + + + | Ethnic Group | Unknown | + + + Author + + + | Author | [facility] | | | and [place] | + + + | Organization | [facility] | | | and [place] [...] Team Providers + +------+ + | Care Clip Loading Machine Adjuster Name | Role | Phone | + +------+ + PCP | Unavailable | + +------+ + Encounter Details +--------+ + + + + | Date | Type | Department | Care Team | Description | +--------+ + + + + | 03/18/ | Hospital | [facility] | | | | 2001 | Encounter | MED CTR EMERGENCY | | | | | | [address] | | | | | | [place] | | | | | | [address] | | | | | | [phone] | | | +--------+ + + + [...]
--- OUTSIDE RECORDS SUMMARY | ~2019-04-05 | XMS | Encounter Summary ---
Demographics + + + | Address | [address] | | | [place] [address] | + + + | Home Phone [...] [place] | | | | | [address] | | + + + + + Care Team Providers + +------+ + | Care Dairy Store Manager Name | Role | Phone | [...]
--- OUTSIDE RECORDS SUMMARY | ~2019-04-05 | XMS | Encounter Summary ---
Demographics + + + | Address | [address] | | | [place] [address] | + + + | Home Phone | | + + + | Preferred Language | Unknown | + + + | Marital Status | Single | + + + | Cheondoism Affiliation | Unknown | + + + | Race | Unknown | + + + | Ethnic Group | Unknown | + + + Author + + + | Author | [facility] | | | and [place] | + + + | Organization | [facility] | | | and [place] | [...] + +------+ + | Care Aboriginal Education Worker Coordinator Name | Role | Phone | + +------+ + PCP | Unavailable | + +------+ + Encounter Details +--------+ + + + + | Date | Type | Department | Care Team | Description | +--------+ + + + + | 03/23/ | Hospital | [facility] | | | | 2001 - | Encounter | MED CTR MED ONC | | | | | | [address] | | | | 03/24/ | | [place] [address] | | | | 2001 | | [phone] | | | +--------+ + + + [...]
--- OUTSIDE RECORDS SUMMARY | ~2019-04-05 | XMS | Encounter Summary ---
Demographics + + + | Address | [address] | | | [place] [address] | + + + | Home Phone | | + + + | Preferred Language | Unknown | + + + | Marital Status | Single | + + + | Scientology Affiliation | Unknown | + + + | Race | Unknown | + + + | Ethnic Group | Unknown | + + + Author + + + | Author | [facility] | | | and [place] | + + + | Organization | [facility] [...] Team Providers + +------+ + | Care Firearms Inspector Name | Role | Phone | + +------+ + PCP | Unavailable | + +------+ + Encounter Details +--------+ + + + + | Date | Type | Department | Care Team | Description | +--------+ + + + + | 03/19/ | [facility] | [facility] | Bev Pinto | | | 2001 - | Encounter | MED CTR MED ONC | MD Anabela [address] | | | | | [address] | [facility] | | | 03/21/ | | [place] [address] | [place] [address] | | | 2001 | | [phone] | [phone] | | | | | | | [...]
--- OUTSIDE RECORDS SUMMARY | ~2019-04-05 | XMS | Encounter Summary ---
Demographics + + + | Address | [address] | | | [place] [address] | + + + | Home Phone | | + + + | Preferred Language | Unknown | + + + | Marital Status | Single | + + + | Lutheran Affiliation | NON | + + + [...] [place] | | | | | [address] | | + + + + + Care Team Providers + +------+ + | Care Gate Guard Name | Role | Phone | [...] as of this encounter Discharge Summaries Interface, Tube Builder In - 12/11/2005 3:[address] [address] [facility] MEDICAL SUMMARY OF HOSPITALIZATION Med Rec No: [id number] Admission Date: 03/24/2002 Name: Mikayla Weiss Discharge Date: 04/04/2002 ATTENDING PHYSICIAN:Obdulio Galloway M.D. PRINCIPAL FINAL DIAGNOSIS: Guillain-Houston syndrome. ADDITIONAL DIAGNOSES: 1. Neuropathic pain. 2. [...] ADMISSION: A 6 -year-old girl admitted from [place] with concern for meningismus with headache, emesis [...] of 209, felt to be consistent with Guillain-Houston syndrome. 3. Neurology. Neurology consult was obtained [...] 225 mg q.6h. After the diagnosis of Guillain-Houston was found, it was expected that her [...] was appropriate for inpatient rehab, estimating a rcw-kq-smcuy-week stay. Those plans were made, and she [...] Noel M.D. Obdulio Galloway M.D. MS:[id number] cc: [facility] [address] [facility] [address] [id number] signed by Interface, Tube Builder In at 12/11/2005 3:09 AM PDTdoc umented in this encounter Plan of Treatment Not on filedocumented as of this encounter Visit Diagnoses Not on filedocumented in this encounter"
--- OUTSIDE RECORDS SUMMARY | 2019-04-05 21:58 | XMS ---
PreManage Notification: YUE KING Security Parking Meter Mechanic Events No recent Security Events currently on file CRITERIA MET - Group Notification - [facility] - Has Care Guidelines - [facility] - 2 Visits in 30 Days CARE PROVIDERS ALOK MITCHELL Nurse Practitioner 01/22/2019-Current PHONE: [phone] Name Unknown Clinic/Center 04/03/2019-Current PHONE: [phone] Christen Holley [facility] Mell MANE PHONE: [phone] William Stanley MD PHONE: Unknown [place] has no Care Guidelines for this patient. Care History Medical/Surgical 01/22/2019 [facility] \T\middot;\T\nbsp; PATIENT IS A [place] ELIGIBLE. \T\middot;\T\nbsp; PLEASE REFER PATIENT TO [facility] FOR NON EMERGENT MEDICAL NEEDS. \T\middot;\ T\nbsp; [facility] CAN SEE PATIENTS SAME DAY FOR APTS IF PATIENT CALLS FIRST THING IN THE MORNING. 11/15/2017 [facility] HX: MARINELLI-BARRE, PERICARDITIS, ABSCESS R AXILLA 08/01/2017 [facility] - Patient can be seen during the week at [facility] for any non emergent medical needs. - [facility] is willing to see patients same day for an apt if patient calls first thing in the morning. - Please refer patient to [facility] for non emergent medical needs. Care Recommendation: This patient has had 5 or more Emergency Department visits in the last 12 months. Patient requires education on the scope and purpose of the ED as an acute care provider not a Primary Care Provider and should not be utilized for chronic conditions. If patient returns to ED please contact Community Health WorkerNena at [phone]. These are guidelines and the provider should exercise clinical judgment when providing care. E.D. VISIT COUNT (12 MO.) 4 [facility]. TOTAL 4 NOTE: Visits indicate total known visits. ED/UCC VISIT TRACKING (12 MO.) 04/05/2019 21:56 [facility] [place] TYPE: Emergency COMPLAINT: - VAGINAL BLEEDING 04/02/2019 20:20 [facility] [place] TYPE: Emergency COMPLAINT: - VAGINAL BLEEDING DIAGNOSES: - 1 Less than 8 weeks gestation of - Allergy status to analgesic agent status - Threatened - Hemorrhage in early , unspecified - Nicotine dependence, unspecified, uncomplicated - Smoking (tobacco) complicating , first trimester 03/01/2019 08:16 [facility] [place] TYPE: Emergency [...] visits to display in this time frame [email or web address]
== END 2019-04-06 00:15 | disposition home or self-care (01) ==
LOC: ED 21:56
DX: O20.0 Threatened abortion (principal); F17.200 Nicotine dependence, unspecified, uncomplicated; Z88.6 Allergy status to analgesic agent
CPT/HCPCS: 80048; 81001; 84702; 84703; 85025; 86900; 86901; 99284

== ENCOUNTER 2019-06-13 19:07 | Emergency (ER) | payer OTHER ==
[~2019-06-13] VITALS: Ht 160 cm; Wt 93.0 kg
--- OUTSIDE RECORDS SUMMARY | 2019-06-13 19:10 | XMS ---
PreManage Notification: YUE [place] Security Wafer Fab Operator Events No recent Security Events currently on file CRITERIA MET - Group Notification - 6 ED Visits in 6 Months CARE PROVIDERS ALOK MITCHELL Nurse Practitioner 01/22/2019-Current PHONE: [phone] Name Unknown [facility] 04/03/2019-Current PHONE: [phone] Chrisetn [facility] [place] PHONE: [phone] William Stanley Current PHONE: Unknown [place]on has no Care Guidelines for this patient. Care History Medical/Surgical 01/22/2019 [facility] \T\middot;\T\nbsp; PATIENT IS A [place]LLOWHAWK ELIGIBLE. \T\middot;\T\nbsp; PLEASE REFER PATIENT TO [facility] FOR NON EMERGENT MEDICAL NEEDS. \T\middot;\ T\nbsp; [facility] CAN SEE PATIENTS SAME DAY FOR APTS IF PATIENT CALLS FIRST THING IN THE MORNING. 11/15/2017 [facility] HX: MARINELLI-BARRE, PERICARDITIS, ABSCESS R AXILLA 08/01/2017 [facility] - Patient can be seen during the week at [facility] for any non emergent medical needs. - [facility] is willing to see patients same day for an apt if patient calls first thing in the morning. - Please refer patient to [facility] for non emergent medical needs. Care Recommendation: This patient has had 5 or more Emergency Department visits in the last 12 months. Patient requires education on the scope and purpose of the ED as an acute care provider not a Primary Care Provider and should not be utilized for chronic conditions. If patient returns to ED please contact Community Health WorkerNena at [phone]. These are guidelines and the provider should exercise clinical judgment when providing care. E.D. VISIT COUNT (12 MO.) 1 [facility] Mary [place] 5 [facility]. TOTAL 6 NOTE: Visits indicate total known visits. ED/UCC VISIT TRACKING (12 MO.) 06/13/2019 19:07 [facility] [place] TYPE: Emergency COMPLAINT: - L ANKLE INJURY 04/06/2019 14:32 [facility] [place] TYPE: Emergency DIAGNOSES: - Poss Miscarriage - Complete or unsp spontaneous without complication - Threatened Miscarriage 04/05/2019 21:56 [facility] [place] TYPE: Emergency COMPLAINT: - VAGINAL BLEEDING DIAGNOSES: - Threatened - Nicotine dependence, unspecified, uncomplicated - Smoking (tobacco) complicating , first trimester - Allergy status to analgesic agent status - Abnormal uterine and vaginal bleeding, unspecified 04/02/2019 20:20 [facility] [place] TYPE: Emergency COMPLAINT: - VAGINAL BLEEDING DIAGNOSES: - 1 Less than 8 weeks gestation of - Allergy status to analgesic agent status - Threatened - Hemorrhage in early , unspecified - Nicotine dependence, unspecified, uncomplicated - Smoking (tobacco) complicating , first trimester 03/01/2019 08:16 [facility] [place] TYPE: Emergency COMPLAINT: - LEFT ANKLE INJURY DIAGNOSES: - Allergy status to analgesic agent status - Pain in left ankle and joints of left foot - Pain in right ankle and joints of right foot - Nicotine dependence, unspecified, uncomplicated 01/21/2019 17:21 [facility] [place] TYPE: Emergency COMPLAINT: - ABD PAIN DIAGNOSES: - Right lower quadrant pain - Allergy status to analgesic agent status - Nicotine dependence, unspecified, uncomplicated INPATIENT VISIT TRACKING (12 MO.) No inpatient visits to display in this time frame [id number]
== END 2019-06-13 22:38 | disposition home or self-care (01) ==
LOC: ED 19:07
DX: S93.402A Sprain of unspecified ligament of left ankle, initial encounter (principal); S93.602A Unspecified sprain of left foot, initial encounter; X50.9XXA Other and unspecified overexertion or strenuous movements or postures, initial encounter; F17.200 Nicotine dependence, unspecified, uncomplicated
CPT/HCPCS: 99283

== ENCOUNTER 2019-06-20 16:48 | Emergency (ER) | payer OTHER ==
[~2019-06-20] VITALS: Ht 160 cm; Wt 93.0 kg
--- OUTSIDE RECORDS SUMMARY | 2019-06-20 16:52 | XMS ---
PreManage Notification: YUE KING Security Carpenter Refrigerator Events No recent Security Events currently on file CRITERIA MET - Group Notification - 6 ED Visits in 6 Months - [facility] - 2 Visits in 30 Days CARE PROVIDERS ALOK MITCHELL Nurse Practitioner 01/22/2019-Current PHONE: [phone] Name Unknown Clinic/Center 04/03/2019-Current PHONE: [phone] Christen [facility] Mell MANE PHONE: [phone] William Stanley Current PHONE: Unknown Donavon has no Care Guidelines for this patient. Care History Medical/Surgical 01/22/2019 [facility] \T\middot;\T\nbsp; PATIENT IS A [place]LLOW[place] ELIGIBLE. \T\middot;\T\nbsp; PLEASE REFER PATIENT TO [facility] FOR NON EMERGENT MEDICAL NEEDS. \T\middot;\ T\nbsp; [facility] CAN SEE PATIENTS SAME DAY FOR APTS IF PATIENT CALLS FIRST THING IN THE MORNING. 11/15/2017 [facility] HX: MARINELLI-BARRE, PERICARDITIS, ABSCESS R AXILLA 08/01/2017 [facility] - Patient can be seen during the week at [facility] for any non emergent medical needs. - [facility] is willing to see patients same day for an apt if patient calls first thing in the morning. - Please refer patient to [facility] for non emergent medical needs. Care Recommendation: This patient has had 5 or more Emergency Department visits in the last 12 months. Patient requires education on the scope and purpose of the ED as an acute care provider not a Primary Care Provider and should not be utilized for chronic conditions. If patient returns to ED please contact Community Health WorkerNena at [phone]. These are guidelines and the provider should exercise clinical judgment when providing care. E.D. VISIT COUNT (12 MO.) 1 [place] Shelli 6 [facility]. TOTAL 7 NOTE: Visits indicate total known visits. ED/UCC VISIT TRACKING (12 MO.) 06/20/2019 16:49 [facility] [place] TYPE: Emergency COMPLAINT: - LEFT ANKLE PAIN 06/13/2019 19:07 [facility] [place] TYPE: Emergency COMPLAINT: - L ANKLE INJURY DIAGNOSES: - Other and unspecified ovrexrtn or strnous move/pstr, init - Unspecified sprain of left foot, initial encounter - Nicotine dependence, unspecified, uncomplicated - Pain in left ankle and joints of left foot - Sprain of unspecified ligament of left ankle, init encntr 04/06/2019 14:32 [facility] [place] TYPE: Emergency DIAGNOSES: - Poss Miscarriage - Complete or unsp spontaneous without complication - Threatened Miscarriage 04/05/2019 21:56 [facility] Dial TYPE: Emergency COMPLAINT: - VAGINAL BLEEDING DIAGNOSES: - Threatened - Nicotine dependence, unspecified, uncomplicated - Smoking (tobacco) complicating , first trimester - Allergy status to analgesic agent status - Abnormal uterine and vaginal bleeding, unspecified 04/02/2019 20:20 [facility] [place] TYPE: Emergency COMPLAINT: - VAGINAL BLEEDING DIAGNOSES: - 1 Less than 8 weeks gestation of - Allergy status to analgesic agent status - Threatened - Hemorrhage in early , unspecified - Nicotine dependence, unspecified, uncomplicated - Smoking (tobacco) complicating , first trimester 03/01/2019 08:16 [facility] [place] TYPE: Emergency COMPLAINT: - LEFT ANKLE [...] visits to display in this time frame [email or web address]
== END 2019-06-20 17:25 | disposition home or self-care (01) ==
LOC: ED 16:48
DX: S90.02XA Contusion of left ankle, initial encounter (principal); X50.9XXA Other and unspecified overexertion or strenuous movements or postures, initial encounter; F17.200 Nicotine dependence, unspecified, uncomplicated
CPT/HCPCS: 73610; 99283-25; 99406

== ENCOUNTER 2019-07-10 21:11 | Emergency (ER) | payer OTHER ==
[~2019-07-10] VITALS: Ht 160 cm; Wt 93.0 kg
== END 2019-07-11 00:15 | disposition home or self-care (01) ==
LOC: ED 21:11
DX: K52.9 Noninfective gastroenteritis and colitis, unspecified (principal); F17.200 Nicotine dependence, unspecified, uncomplicated
CPT/HCPCS: 74177; 80053; 81001; 84703; 85025; 96361; 99284-25; J2405; J7030

== ENCOUNTER 2019-10-25 08:02 | Emergency (ER) | payer OTHER ==
[~2019-10-25] VITALS: Ht 160 cm; Wt 93.0 kg
--- OUTSIDE RECORDS SUMMARY | 2019-10-25 08:06 | XMS ---
PreManage Notification: YUE KING Security Organizational Effectiveness Director Events No recent Security Events currently on file CRITERIA MET - Group Notification CARE PROVIDERS ALOK MITCHELL Nurse Practitioner 01/22/2019-Current PHONE: [phone] Name [facility] 04/03/2019-Current PHONE: [phone] Donavon has no Care Guidelines for this patient. Care History Medical/Surgical 06/26/2019 [facility] - PATIENT HAS BEEN WORKING WITH MELISSA AGUILARAPPRENTICESHIP TRAINING REPRESENTATIVE AT [facility]. - PATIENT HAS NOT SEEN PCP AT [facility] SINCE OCTOBER 2018. - PATIENT HAS A FOAM RUBBER MIXER FOR LEFT ANKLE/FOOT PAIN-ONGOING SINCE 2018- FOAM RUBBER MIXER DR ALVAREZ LAST SEEN 1 TIME ON 05/11/2018. - PLEASE HAVE PATIENT CONTACT DR ALVAREZ FOR CHRONIC LEFT FOOT PAIN: [address] [place] [address] \T\nbsp;\T\nbsp;\T\nbsp;\T\nbsp;\T\nbsp;\T\nbsp;\T\nbsp;\T\ nbsp;\T\nbsp;\T\nbsp; P: [phone] 01/22/2019 [facility] \T\middot;\T\nbsp; PATIENT IS A YELLOWHAWK ELIGIBLE. \T\middot;\T\nbsp; PLEASE REFER PATIENT TO [facility] FOR NON EMERGENT MEDICAL NEEDS. \T\middot;\ T\nbsp; [facility] CAN SEE PATIENTS SAME DAY FOR APTS IF PATIENT CALLS FIRST THING IN THE MORNING. 11/15/2017 [facility] HX: MARINELLI-BARRE, PERICARDITIS, ABSCESS R AXILLA [place] [facility] MO[facility] TOTAL 9 NOTE: Visits indicate total known visits. ED/UCC VISIT TRACKING (12 MO.) 10/25/2019 08:03 [facility] [place] TYPE: Emergency COMPLAINT: - RIGHT HAND INJURY 07/10/2019 21:11 [facility] [place] TYPE: Emergency COMPLAINT: - ABDOMINAL PAIN DIAGNOSES: - Noninfective gastroenteritis and colitis, unspecified - Unspecified abdominal pain - Nicotine dependence, unspecified, uncomplicated 06/20/2019 16:49 [facility] [place] TYPE: Emergency COMPLAINT: - LEFT ANKLE PAIN,WORKERS COMP DIAGNOSES: - Nicotine dependence, unspecified, uncomplicated - Other and unspecified overexertion or strenuous movements or - Pain in left ankle and joints of left foot - Contusion of left ankle, initial encounter 06/13/2019 19:07 [facility] [place] TYPE: Emergency COMPLAINT: - L ANKLE INJURY DIAGNOSES: - Other and unspecified overexertion or strenuous movements or - Unspecified sprain of left foot, initial encounter - Nicotine dependence, unspecified, uncomplicated - Pain in left ankle and joints of left foot - Sprain of unspecified ligament of left ankle, initial encount 04/06/2019 14:32 [facility] She[place] TYPE: Emergency DIAGNOSES: - Poss Miscarriage - Complete or unspecified spontaneous without complica - Threatened Miscarriage 04/05/2019 21:56 [facility] [place] TYPE: Emergency COMPLAINT: - VAGINAL BLEEDING DIAGNOSES: - Threatened - Nicotine dependence, unspecified, uncomplicated - Smoking (tobacco) complicating , first trimester - Allergy status to analgesic agent status - Abnormal uterine and vaginal bleeding, unspecified 04/02/2019 20:20 [facility] [place] TYPE: Emergency COMPLAINT: - VAGINAL BLEEDING DIAGNOSES: - Less than 8 weeks gestation of - [...] visits to display in this time frame [email or web address]
[2019-10-25] MEDS ORDERED: NAPROSYN500 MG PO (08:22)
== END 2019-10-25 09:06 | disposition home or self-care (01) ==
LOC: ED 08:02
DX: S60.221A Contusion of right hand, initial encounter (principal); F17.200 Nicotine dependence, unspecified, uncomplicated; W22.8XXA Striking against or struck by other objects, initial encounter
CPT/HCPCS: 73130; 99283-25

== ENCOUNTER 2019-12-20 07:07 | Emergency (ER) | payer OTHER ==
[~2019-12-20] VITALS: Ht 160 cm; Wt 102.1 kg
[~2019-12-20 07:07] MED LIST changes: +NAPROSYN500 MG PO
--- OUTSIDE RECORDS SUMMARY | 2019-12-20 07:10 | XMS ---
PreManage Notification: YUE KING Security Pump Installation And Servicer Events No recent Security Events currently on file CRITERIA MET - Group Notification CARE PROVIDERS ALOK MITCHELL Nurse Practitioner 01/22/2019-Current PHONE: [phone] Name [facility] 04/03/2019-Current PHONE: [phone] Donavon has no Care Guidelines for this patient. Care History Medical/Surgical 06/26/2019 [facility] - PATIENT HAS BEEN WORKING WITH MELISSA AGUILARCUSTOMS APPRAISER AT [facility]. - PATIENT HAS NOT SEEN PCP AT [facility] SINCE OCTOBER 2018. - PATIENT HAS A COKE OVEN PATCHER FOR LEFT ANKLE/FOOT PAIN-ONGOING SINCE 2018- COKE OVEN PATCHER DR ALVAREZ LAST SEEN 1 TIME ON 05/11/2018. - PLEASE HAVE PATIENT CONTACT DR ALVAREZ FOR CHRONIC LEFT FOOT PAIN: [address] [place] [address] P: [phone] 01/22/2019 [facility] \T\middot;\T\nbsp; PATIENT IS A [facility] ELIGIBLE. \T\middot;\T\nbsp; PLEASE REFER PATIENT TO [facility] FOR NON EMERGENT MEDICAL NEEDS. \T\middot;\ T\nbsp; [facility] CAN SEE PATIENTS SAME DAY FOR APTS IF PATIENT CALLS FIRST THING IN THE MORNING. 11/15/2017 [facility] HX: MARINELLI-BARRE, PERICARDITIS, ABSCESS R AXILLA EBennieDBennie VISIT COUNT (12 MO.) [facility] NOTE: Visits indicate total known visits. ED/UCC VISIT TRACKING (12 MO.) 12/20/2019 [facility]07 [facility] [place] [facility] COMPLAINT: - VAGINAL BLEEDING, APROX 6 WEEKS 10/25/2019 08:03 [facility] [place] TYPE: Emergency COMPLAINT: - RIGHT HAND INJURY DIAGNOSES: - Pain in right hand - Striking against or struck by other objects, initial encounte - Contusion of right hand, initial encounter - Nicotine dependence, unspecified, uncomplicated 07/10/2019 21:11 [facility] [place] TYPE: Emergency [...] of left ankle, initial encount 04/06/2019 14:32 [facility] [place] TYPE: Emergency DIAGNOSES: - Poss Miscarriage - Complete or unspecified spontaneous without complica - Threatened Miscarriage 04/05/2019 21:56 [facility] [place] TYPE: Emergency COMPLAINT: - VAGINAL BLEEDING DIAGNOSES: - Threatened - Nicotine dependence, unspecified, uncomplicated - Smoking (tobacco) complicating , first trimester - Allergy status to analgesic agent status - Abnormal uterine and vaginal bleeding, unspecified 04/02/2019 20:20 [facility] [place] TYPE: Emergency COMPLAINT: - VAGINAL [...] Nicotine dependence, unspecified, uncomplicated 01/21/2019 17:21 [facility] [place] TYPE: Emergency COMPLAINT: - ABD PAIN DIAGNOSES: - Right lower quadrant pain - Allergy status to analgesic agent status - Nicotine dependence, unspecified, uncomplicated INPATIENT VISIT TRACKING (12 MO.) No inpatient visits to display in this time frame [email or web address]
== END 2019-12-20 09:43 | disposition home or self-care (01) ==
LOC: ED 07:07
DX: O20.0 Threatened abortion (principal); O99.331 Smoking (tobacco) complicating pregnancy, first trimester; F17.200 Nicotine dependence, unspecified, uncomplicated; Z3A.01 Less than 8 weeks gestation of pregnancy
CPT/HCPCS: 76801; 76802; 76817; 81001; 84702; 85025; 99284-25

== ENCOUNTER 2020-02-16 19:35 | Emergency (ER) | payer OTHER ==
[~2020-02-16] VITALS: Ht 160 cm; Wt 102.1 kg
--- OUTSIDE RECORDS SUMMARY | ~2020-02-16 | XMS | Encounter Summary ---
Demographics + + + | Address | [address] | | | [place] [address] | + + + | Home Phone | | + + + | Preferred Language | Unknown | + + + | Marital Status | Single | + + + | Alevism Affiliation | NON | + + + | Race | Unknown | + + + | Ethnic Group | Not or | + + + Author + + + | Author | [facility] | + + + | Organization | [facility] | + + + | Address | Unknown | + + + | Phone | Unavailable | + + + Support + + + + + | Name | Relationship | Address | Phone | + + + + + | Ede Morales | ECON | [address] | | | | | [place] | | | | | [address] | | + + + + + Care Team Providers + +------+ + | Care Precision [employer]s Worker Name | Role | Phone | + +------+ + PCP | Unavailable | + +------+ + Encounter Details +--------+ + + + + | Date | Type | Department | Care Team | Description | +--------+ + + + + | 03/25/ | Results | Pediatric | Dylan Diaz MD | | | 2001 | Only | Pulmonology at | [address] | | | | | [place] | [place], | | | | | [facility] | [place] [address] | | | | | [address] | [phone] | | | | | [place] | | | | | | [facility], | | | | | | [address] [place] [address] | | | | | | [place], [place] | | | | | | [address] | | | | | | [phone] | | | +--------+ + + + + Social History + +-------+ +--------+------+ | Tobacco Use | Types | Packs/Day | Years | Date | | | | | Used | | + +-------+ +--------+------+ | Never Assessed | | | | | + +-------+ +--------+------+ + + + | Sex Assigned at | Date Recorded | | | | + + + | Not on file | | + + + documented as of this encounter Plan of Treatment Not on filedocumented as of this encounter Procedures + +--------+ + + + | Procedure Name | Priori | Date/Time | Associated Diagnosis | Comments | | | ty | | | | + +--------+ + + + | CMV IGM AB, SERUM | Routin | 03/25/2002 | | Results for this | | | e | 3:15 PM | | procedure are in the | | | | PST | | results section. | + +--------+ + + + | HEAVY METALS | Routin | 03/25/2002 | | Results for this | | (ARSENIC, LEAD, | e | 3:15 PM | | procedure are in the | | MERCURY), BLOOD | | PST | | results section. | + +--------+ + + + | MARLENE WALTON VIRUS | Routin | 03/25/2002 | | Results for this | | PANEL, SERUM | e | 3:15 PM | | procedure are in the | | | | PST | | results section. | + +--------+ + + + | LEAD, BLOOD | Routin | 03/25/2002 | | Results for this | | | e | 3:15 PM | | procedure are in the | | | | PST | | results section. | + +--------+ + + + | TOXOPLASMA IGM AB, | Routin | 03/25/2002 | | Results for this | | SERUM | e | 3:15 PM | | procedure are in the | | | | PST | | results section. | + +--------+ + + + | TOXOPLASMA IGG AB, | Routin | 03/25/2002 | | Results for this | | SERUM | e | 3:15 PM | | procedure are in the | | | | PST | | results section. | + +--------+ + + + | URIC ACID, PLASMA | Routin | 03/25/2002 | | Results for this | | | e | 3:15 PM | | procedure are in the | | | | PST | | results section. | + +--------+ + + + | LDH TOTAL, PLASMA | Routin | 03/25/2002 | | Results for this | | | e | 3:15 PM | | procedure are in the | | | | PST | | results section. | + +--------+ + + + documented in this encounter Results TOXOPLASMA IGM AB (03/25/2002 3:15 PM PST) + + + + + + | Component | Value | Ref Range | Performed | Pathologist | | | | | At | Signature | + + + + + + | TOXOPLASMA | 0.22Comment: REFERENCE | <0.80 IV | | | | IGM AB | INTERVAL: Toxoplasma Ab, | | | | | | IgM Less than 0.80 IV | | | | | | ........ Negative - No | | | | | | clinically | | | | | | | | | | | | significant level | | | | | | of antibody | | | | | | | | | | | | detected. 0.80 - | | | | | | 0.99 IV ........... | | | | | | Equivocal - Repeat | | | | | | testing in | | | | | | | | | | | | 10-14 days may be | | | | | | helpful. Greater than | | | | | | 0.99 IV ..... Positive - | | | | | | Significant level | | | | | | | | | | | | of antibody | | | | | | detected and may | | | | | | | | | | | | indicate a | | | | | | current or recent | | | | | | | | | | | | infection.IV | | | | | | = Index ValueWhile the | | | | | | presence of IgM | | | | | | antibodies suggest | | | | | | current orrecent | | | | | | infection, low levels of | | | | | | IgM antibodies | | | | | | mayoccasionally persist | | | | | | for more than 12 | | | | | | monthspost-infection. As | | | | | | suggested by the CDC, | | | | | | any confirmedequivocal | | | | | | or positive results | | | | | | should be retested using | | | | | | adifferent assay. | | | | | | Caution should be | | | | | | exercised in the use | | | | | | ofIgM antibody levels in | | | | | | screening. Any | | | | | | positiveresult should | | | | | | be confirmed with | | | | | | amniocentesis and | | | | | | PCRtesting for | | | | | | Toxoplasma gondii. Test | | | | | | performed by [facility] | | | | | | Laboratories. | | | | + + + + + + + + | Specimen | + + | | + + + + + + + | Performing | Address | City/State/Zipcode | Phone Number | | Organization | | | | + + + + + | [facility] | [address] | [place], [place] | | | [address] [address] | | [address] | | + + + + + TOXOPLASMA IGG AB (03/25/2002 3:15 PM PST) + + + + + + | Component | Value | Ref Range | Performed | Pathologist | | | | | At | Signature | + + + + + + | TOXOPLASMA | < 1.0Comment: | IU/ml | | | | IGG AB | Interpretation: | | | | | | Negative: <4 | | | | | | IU/mL | | | | | | Equivocal: 4-5 | | | | | | IU/mL Positive: | | | | | | >or=6 IU/mL | | | | | | )Test performed by | | | | | | [facility] | | | | | | [facility]. | | | | + + + + + + + + | Specimen | + + | | + + + + + + + | Performing | Address | City/State/Zipcode | Phone Number | | Organization | | | | + + + + + | [facility] | [address] | [place] [address] | | | LABORATORY | | | | + + + + + LEAD, BLOOD (03/25/2002 3:15 PM PST) + + + + + + | Component | Value | Ref Range | Performed | Pathologist | | | | | At | Signature | + + + + + + | LEAD, BLOOD | Clotted, please | ug/dL | | | | | resubmit. | | | | + + + + + + + + | Specimen | + + | | + + + + + + + | Performing | Address | City/State/Zipcode | Phone Number | | Organization | | | | + + + + + | [facility] | [address] | [place], [place] | | | [address] [address] | | [address] | | + + + + + HEAVY METALS, BLOOD (03/25/2002 3:15 PM PST) + + + + + + | Component | Value | Ref Range | Performed | Pathologist | | | | | At | Signature | + + + + + + | LEAD BLOOD | Clotted, please | ug/dL | | | | | resubmit. | | | | + + + + + + + + | Specimen | + + | | + + + + + | Narrative | Performed At | + + + | Heavy Metals, Blood Test performed by [facility]. | | + + + + + + + + | Performing | Address | City/State/Zipcode | Phone Number | | Organization | | | | + + + + + | [facility] | [address] | [place], [place] | | | [facility] | | [address] | | + + + + + CMV IGM AB (03/25/2002 3:15 PM PST) + + + + + + | Component | Value | Ref Range | Performed | Pathologist | | | | | At | Signature | + + + + + + | CMV IGM AB | 0.38Comment: Specimen is | <0.90 IV | | | | | hemolyzed. Results may | | | | | | be adversely | | | | | | affected.REFERENCE | | | | | | INTERVAL: | | | | | | Cytomegalovirus | | | | | | Antibody, IgM Less | | | | | | than 0.90 IV ........ | | | | | | Negative-No significant | | | | | | level | | | | | | | | | | | | of detectable CMV IgM | | | | | | | | | | | | | | | | | | antibody. 0.90 - 1.09 | | | | | | IV ........... | | | | | | Equivocal-Repeat testing | | | | | | in | | | | | | | | | | | | 10-14 days may be | | | | | | helpful. Greater than | | | | | | 1.09 IV ..... | | | | | | Positive-IgM antibody to | | | | | | CMV | | | | | | | | | | | | detected which may | | | | | | indicate a | | | | | | | | | | | | current or | | | | | | recent infection.IV = | | | | | | Index ValueIn | | | | | | immunocompromised | | | | | | patients, CMV serology | | | | | | (IgG or IgMantibody | | | | | | titers) may not be | | | | | | reliable and may be | | | | | | misleadingin the | | | | | | diagnosis of acute or | | | | | | reactivation CMV | | | | | | disease. Thepreferred | | | | | | method for diagnosis is | | | | | | culture of virus | | | | | | and/ordemonstration of | | | | | | viral antigen in | | | | | | peripheral white | | | | | | cells(buffy coat), | | | | | | bronchoalveolar lavage | | | | | | (BAL) cells, ortissue | | | | | | biopsies.While the | | | | | | presence of IgM | | | | | | antibodies suggest | | | | | | current orrecent | | | | | | infection, low levels of | | | | | | IgM antibodies | | | | | | mayoccasionally persist | | | | | | for more than 12 | | | | | | monthspost-infection. | | | | | | Test performed by [facility] | | | | | | Laboratories. | | | | + + + + + + + + | Specimen | + + | | + + + + + + + | Performing | Address | City/State/Zipcode | Phone Number | | Organization | | | | + + + + + | [facility] | [address] | [place], [place] | | | [facility] | | [address] | | + + + + + MARLENE WALTON VIRUS PANEL (03/25/2002 3:15 PM PST) + + + + + + | Component | Value | Ref Range | Performed | Pathologist | | | | | At | Signature | + + + + + + | MARLENE | 7.09 (H)Comment: | <0.91 IV | | | | WALTON VIRUS | REFERENCE INTERVAL: EBV | | | | | AB VCA IGG | Ab to Viral Capsid Ag, | | | | | | IgG 0.00 - 0.90 | | | | | | IV.......Negative: No | | | | | | significant level of | | | | | | | | | | | | detectable IgG | | | | | | antibody to EBV Viral | | | | | | | | | | | | Capsid Antigen. | | | | | | 0.91 - 0.99 IV...... | | | | | | Equivocal: Repeat | | | | | | testing in 10-14 | | | | | | | | | | | | days may be helpful. | | | | | | 1.00 IV or | | | | | | greater.......... | | | | | | Positive: IgG antibody | | | | | | to EBV Viral | | | | | | | | | | | | Capsid Antigen detected | | | | | | which may | | | | | | | | | | | | indicate a current or | | | | | | previous EBV | | | | | | | | | | | | infection.IV = Index | | | | | | Value | | | | + + + + + + | AB TO VCA | 0.90Comment: REFERENCE | <0.91 IV | | | | IGM | INTERVAL: EBV Ab to | | | | | | Viral Capsid Ag, IgM | | | | | | 0.00 - 0.90 IV ....... | | | | | | Negative: No | | | | | | significant level | | | | | | | | | | | | of detectable IgM | | | | | | antibody to | | | | | | | | | | | | EBV Viral Capsid | | | | | | Antigen. 0.91 - 0.99 | | | | | | IV ....... Equivocal: | | | | | | Repeat testing in | | | | | | | | | | | | 10-14 days may be | | | | | | helpful. 1.00 IV or | | | | | | greater .............. | | | | | | Positive: IgM antibody | | | | | | to EBV | | | | | | Viral | | | | | | Capsid Antigen detected | | | | | | | | | | | | which may | | | | | | indicate a current or | | | | | | | | | | | | recent EBV | | | | | | infection.IV = Index | | | | | | Value | | | | + + + + + + | AB TO | 7.62 (H)Comment: | <0.91 IV | | | | NUCLEAR AG | REFERENCE INTERVAL: | | | | | | EBV Ab to Nuclear Ag, | | | | | | IgG 0.00 - 0.90 IV | | | | | | ........ Negative: No | | | | | | significant level of | | | | | | | | | | | | detectable | | | | | | IgG antibody to EBV | | | | | | | | | | | | Nuclear | | | | | | Antigen. 0.91 - 0.99 | | | | | | IV ........ Equivocal: | | | | | | Repeat testing in | | | | | | | | | | | | 10-14 days may | | | | | | be helpful. 1.00 IV or | | | | | | greater | | | | | | ............... | | | | | | Positive: IgG antibody | | | | | | to EBV | | | | | | | | | | | | Nuclear Antigen | | | | | | detected which | | | | | | | | | | | | may indicate a | | | | | | current or | | | | | | | | | | | | previous EBV | | | | | | infection.IV = Index | | | | | | Value | | | | + + + + + + | AB TO EARLY | 0.68Comment: This | <0.91 IV | | | | AG | pattern of the EBV | | | | | | Antibodies findings is | | | | | | consistentwith a | | | | | | convalescent or past | | | | | | infection. In rare | | | | | | instances,an unusually | | | | | | high antibody response | | | | | | to VCA or EA in | | | | | | thepresence of antibody | | | | | | against EBNA may be a | | | | | | sign ofreactivated EBV | | | | | | infection.REFERENCE | | | | | | INTERVAL: EBV Ab to | | | | | | Early (D) Ag, IgG 0.00 | | | | | | - 0.90 IV ..... | | | | | | Negative: No significant | | | | | | level of | | | | | | | | | | | | detectable antibody to | | | | | | EBV Early (D) 0.91 - | | | | | | 0.99 IV ..... Equivocal: | | | | | | Repeat testing in 10-14 | | | | | | | | | | | | days may be | | | | | | helpful. 1.00 IV or | | | | | | Greater ........... | | | | | | Positive: IgG antibody | | | | | | to EBV Early | | | | | | | | | | | | (D) detected which may | | | | | | indicate a | | | | | | | | | | | | current or previous EBV | | | | | | infection.IV = Index | | | | | | Value Test performed by | | | | | | [facility]. | | | | + + + + + + + + | Specimen | + + | | + + + + + + + | Performing | Address | City/State/Zipcode | Phone Number | | Organization | | | | + + + + + | [facility] | [address] | [place], [place] | | | [address] [facility] | | [address] | | + + + + + LDH, TOTAL, PLASMA (03/25/2002 3:15 PM PST) + +-------+ + + + | Component | Value | Ref Range | Performed | Pathologist | | | | | At | Signature | + +-------+ + + + | LD TOTAL, | 143 | 130 - 360 U/L | [facility] | | | PLASMA | | | DEPARTMENT | | | | | | OF | | | | | | PATHOLOGY | | + +-------+ + + + + + | Specimen | + + | | + + + + + + + | Performing | Address | City/State/Zipcode | Phone Number | | Organization | | | | + + + + + | [facility] DEPARTMENT OF | [address] | [place] [address] | | | PATHOLOGY | [address] | | | + + + + + | [facility] DEPARTMENT OF | [address] | [place] [address] | | | PATHOLOGY | [address] | | | + + + + + URIC ACID, PLASMA (03/25/2002 3:15 PM PST) + +-------+ + + + | Component | Value | Ref Range | Performed | Pathologist | | | | | At | Signature | + +-------+ + + + | URIC ACID, | 2.6 | 2.0 - 7.0 mg/dL | [facility] | | | PLASMA | | | DEPARTMENT | | | (LAB) | | | OF | | | | | | PATHOLOGY | | + +-------+ + + + + + | Specimen | + + | | + + + + + + + | Performing | Address | City/State/Zipcode | Phone Number | | Organization | | | | + + + + + | [facility] DEPARTMENT OF | [address] | [place] [address] | | | PATHOLOGY | [address] | | | + + + + + | [facility] DEPARTMENT OF | [address] | [place] [address] | | | PATHOLOGY | [address] | | | + + + + + documented in this encounter Visit Diagnoses Not on filedocumented in this encounter"
--- OUTSIDE RECORDS SUMMARY | ~2020-02-16 | XMS | Encounter Summary ---
Demographics + + + | Address | [address] | | | [place] [address] | + + + | Home Phone | | + + + | Preferred Language | Unknown | + + + | Marital Status | Single | + + + | Quaker Affiliation | Unknown | + + + | Race | White | + + + | Ethnic Group | Not or | + + + Author + + + | Author | [facility] | | | and [place] | + + + | Organization | [facility] | | | and [place] | [...] Team Providers + +------+ + | Care Medic Technician Name | Role | Phone | + +------+ + PCP | Unavailable | + +------+ + Encounter Details +--------+ + + + + | Date | Type | Department | Care Team | Description | +--------+ + + + + | 03/19/ | Hospital | [facility] | Bev Pinto | | | 2001 - | Encounter | MED CTR MED ONC | MD Anabel[address] | | | | | [address] | [facility] | | | 03/21/ | | [place] [address] | [place] [address] | | | 2001 | | [phone] | [phone] | | | | | | | | +--------+ + + + [...]
--- OUTSIDE RECORDS SUMMARY | ~2020-02-16 | XMS | Clinical Summary ---
Demographics + + + | Address | [address] | | | [place] [address] | + + + | Home Phone | | + + + | Preferred Language | Unknown | + + + | Marital Status | Single | + + + | Mosque Affiliation | NON | + + + [...] + | Poonam Torres | ECON | [address] [place] [address] | | | | | [place] | | | | | [address] | | + + + + + Care Team Providers + +------+ + | Care Tomato Pulper Operator Name | Role | Phone | + +------+ + | Emma Arellano MD | PCP | | + +------+ + Source Comments SALOMÓN is fully live on both [facility] and [facility] Allergies No Known Allergies Medications [...] + + Plan of Treatment + + +-------+ + | Health Maintenance | Due Date | Last | Comments | | | | Done | | + + +-------+ + | Pneumococcal | | | | | vaccination (1 of 1 | 4 | | | | - PPSV23) | | | | + + +-------+ + | Influenza (Flu) | | | | | vaccination (#1) | 0 | | | + + +-------+ + Results Not on filefrom Last 3 [...] +--------+ | [place]ICAID [place] | O[facility] | [id number] | 06/15/19 | [phone] | [address] | [address] | | | PLUS | | 13-Pre | 6 | [address] | id | | | OPEN | | sent | | [place] | | | | CARD | | | | [id number] | | + +--------+ +--------+ + +--------+ + +--------+ +--------+ + + | Guarantor Name | Accoun | Relation to | Date | Phone | Billing Address | | | t Type | Patient | of | | | | | | | | | | + +--------+ +--------+ + + | POONAM TORRES | Person | Legal | [birth year] | [address] | | | al/[address] | [address] | 1990 | [phone] | [place] [address] | | | evans | | | 9 (Home) | | + +--------+ +--------+ + +
--- OUTSIDE RECORDS SUMMARY | ~2020-02-16 | XMS | Encounter Summary ---
Demographics + + + | Address | [address] | | | [place] [address] | + + + | Home Phone | | + + + | Preferred Language | Unknown | + + + | Marital Status | Single | + + + | Yazidism Affiliation | Unknown | + + + | Race | White | + + + | Ethnic Group | Not or | + + + Author + + + | Author | [facility] | | | and Fredyana | + + + | Organization | [facility] | | | [...] Team Providers + +------+ + | Care Balloon Pilot Name | Role | Phone | + +------+ + PCP | Unavailable | + +------+ + Encounter Details +--------+ + + + + | Date | Type | Department | Care Team | Description | +--------+ + + + + | 03/18/ | Hospital | [facility] | | | | 2001 | Encounter | MED CTR EMERGENCY | | | | | | [address] | | | | | | [place] | | | | | | [address] | | | | | | [phone] | | | +--------+ + + + [...]
--- OUTSIDE RECORDS SUMMARY | ~2020-02-16 | XMS | Encounter Summary ---
Demographics + + + | Address | [address] | | | [place] [address] | + + + | Home Phone [...] Author + + + | Author | [facility] | | | and Fredyana | + + + | Organization | [facility] | | | [...] Team Providers + +------+ + | Care Stamp Clerk Name | Role | Phone | + +------+ + PCP | Unavailable | + +------+ + Encounter Details +--------+ + + + + | Date | Type | Department | Care Team | Description | +--------+ + + + + | 05/25/ | Hospital | [facility] | Unknown, | | | 2002 - | Encounter | MED CTR OP REHAB | MD Otoniel . | | | | | [address] [place] | [phone] | | | 06/24/ | | [place] [address] | | | | 2003 | | [phone] | | | +--------+ + + + [...]
--- OUTSIDE RECORDS SUMMARY | ~2020-02-16 | XMS | Encounter Summary ---
Demographics + + + | Address | [address] | | | [place] [address] | + + + | Home Phone [...] + + + | Author | [facility] | + + + | Organization | [facility] | + + + | Address | Unknown | + + + | Phone | Unavailable | + + + Support + + + + + | Name | Relationship | Address | Phone | + + + + + | Ede Morales | ECON | [address] | | | | | [place] | | | | | [address] | | + + + + + Care Team Providers + +------+ + | Care Or Rn Name | Role | Phone | + [...]
--- OUTSIDE RECORDS SUMMARY | ~2020-02-16 | XMS | Encounter Summary ---
Demographics + + + | Address | [address] | | | [place] [address] | + + + | Home Phone | | + + + | Preferred Language | Unknown | + + + | Marital Status | Single | + + + | Amish Affiliation | NON | + + + | Race | Unknown | + + + | Ethnic Group | Not or | + + + Author + + + | Author | [facility] | + + + | Organization | [facility] | + + + | Address | Unknown | + + + | Phone | Unavailable | + + + Support + + + + + | Name | Relationship | Address | Phone | + + + + + | Ede Morales | ECON | [address] | | | | | [place] | | | | | [address] | | + + + + + Care Team Providers + +------+ + | Care Nitroglycerin Nitrator Operator Batch Name | Role | Phone | + [...] | | Neurology at | MD Antwon [address] [facility] | | | | | Shayne | [employer] | | | | | [facility] | [place], [place] | | | | | [address] | [address] | | | | | Shayne | [phone] | | | | | [facility], | | | | | | 7th floor | | | | | | [place], [place] | | | | | | [address] | | | | | | [phone] | | | +--------+ + + + [...] + + documented as of this encounter Miscellaneous Notes Telephone Encounter - Isela Gutierrez RN - 01/08/2014 2:25 PM PDTReviewed records and confirmshaka d, per 2001 discharge summary that she had, at that time a diagnosis of GBS. Talked to PCP Radha AGUILAR. She will discuss any immunization exemptions with PCP and family . elephone Shelley Jacobs - 01/08/2014 1:57 PM PDTCall from PCP's office, Radha. She states pat ient current guardian (brother) is declining all vaccines. He wants medical exemption due to history of Rodriguez [place]. PCP is unable to confirm this and wants to know if Neurology woul d be able to. Patient is due for Tdap, Varicella, Meningococcal, and HPV vaccines. Radha calix be reached at [phone]. documented in this encounter Plan of Treatment Not on filedocumented as of this encounter Visit Diagnoses Not on filedocumented in this encounter"
--- OUTSIDE RECORDS SUMMARY | ~2020-02-16 | XMS | Encounter Summary ---
Demographics + + + | Address | [address] | | | [place] [address] | + + + | Home Phone | | + + + | Preferred Language | Unknown | + + + | Marital Status | Single | + + + | Mormon Affiliation | NON | + + + | Race | Unknown | + + + | Ethnic Group | Not or | + + + Author + + + | Author | [facility] | + + + | Organization | [facility] | + + + | Address | Unknown | + + + | Phone | Unavailable | + + + Support + + + + + | Name | Relationship | Address | Phone | + + + + + | Ede Morales | ECON | [address] | | | | | [place] | | | | | [address] | | + + + + + Care Team Providers + +------+ + | Care Quality Assurance Intern Name | Role | Phone | + [...] | (referral for | | | | [facility] | | paraplejia) | | | | [address] | | | | | | [place] | | | | | | [facility], | | | | | | 7th floor | | | | | | [place], [place] | | | | | | [address] | | | | | | [phone] | | | +--------+ + + + [...] this encounter Miscellaneous Notes Telephone Encounter - Bonnie Abraham PNP - 08/09/2012 5:21 PM PDTElizabeth was seen by Dr. Ernandez on 07/31/12 at 10:00 am. Encounter closed. documented in this encounter Plan of Treatment Not on filedocumented as of this encounter Visit Diagnoses Not on filedocumented in this encounter"
--- OUTSIDE RECORDS SUMMARY | ~2020-02-16 | XMS | Encounter Summary ---
Demographics + + + | Address | [address] | | | [place] [address] | + + + | Home Phone | | + + + | Preferred Language | Unknown | + + + | Marital Status | Single | + + + | Taoism Affiliation | NON | + + + [...] [place] | | | | | [address] | | + + + + + Care Team Providers + +------+ + | Care Vice President Regulatory Name | Role | Phone | + [...] as of this encounter Discharge Summaries Interface, Nuisance Animal Damage Control Agent In - 12/11/2005 3:[address] [address] [facility] MEDICAL SUMMARY OF HOSPITALIZATION Med Rec No: [id number] Admission Date: 03/24/2002 Name: Mikayla Weiss Discharge Date: 04/04/2002 ATTENDING PHYSICIAN:Obdulio Galloway M.D. PRINCIPAL FINAL DIAGNOSIS: Guillain-Saxonburg syndrome. ADDITIONAL DIAGNOSES: 1. Neuropathic pain. 2. [...] ADMISSION: A 6 -year-old girl admitted from [place] with concern for meningismus with headache, emesis [...] of 209, felt to be consistent with Guillain-Saxonburg syndrome. 3. Neurology. Neurology consult was obtained [...] 225 mg q.6h. After the diagnosis of Guillain-Saxonburg was found, it was expected that her [...] was appropriate for inpatient rehab, estimating a ehh-be-mmrvp-week stay. Those plans were made, and she [...] Noel M.D. Obdulio Galloway M.D. MS:[id number] cc: [facility] [address] [facility] [address] [id number] signed by Interface, Nuisance Animal Damage Control Agent In at 12/11/2005 3:09 AM PDTdoc umented in this encounter Plan of Treatment Not on filedocumented as of this encounter Visit Diagnoses Not on filedocumented in this encounter"
--- OUTSIDE RECORDS SUMMARY | ~2020-02-16 | XMS | Encounter Summary ---
Demographics + + + | Address | [address] | | | [place] [address] | + + + | Home Phone | | + + + | Preferred Language | Unknown | + + + | Marital Status | Single | + + + | Anglican Affiliation | NON | + + + [...] [place] | | | | | [address] | | + + + + + Care Team Providers + +------+ + | Care Install Technician Name | Role | Phone | [...] | evaltreat | MD Emma | Neurology Dch | | | | | paraplejia | [address] | [address] | | | | | PCP spoke to | [facility] | [address] | | | | | | [place] | [place] | | | | | [place] | [address] | Children's | | | | | about child | Phone: | [address] | | | | | hx of | [phone] | floor | | | | | 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[place], [place]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 | [phone] | [address] | | | | | at age 3-4 | | Phone: | | | | | | | [phone] | | | | | | | Fax: | | | | | | | [phone] | +--------+--------+ + + + + Encounter Details +--------+---------+ + + + | Date | Type | Department | Care Team | Description | +--------+---------+ + + + | 07/31/ | Office | Pediatric | Gillian Ernandez | Weakness (Primary | | 2013 | Visit | Neurology at | MD Antwon [address] | Dx); Gait | | | | [place] | [address] [facility] [address] | abnormality; Lower | | | | [facility] | [place], [place] | extremity weakness; | | | | [address] | [address] | Lower extremity pain | | | | [place] | [phone] | | | | | [facility], | | | | | | 7th floor | | | | | | [place], [place] | | | | | | [address] | | | | | | [phone] | | | +--------+---------+ + + + [...] encounter Patient Instructions Patient Instructions Shanika BENAVIDES, Ghpaonia H - 07/31/2012 11:08 AM Ronak was seen [...] have any questions please net us know [phone]. Included for school only: Mikayla was seen in Pediatric Neurology Clinic today. She requires the use of a wheelcha ir for trouble walking. This equipment will enable her to continue to attend classes safely . She will be evaluated by physical therapy and further recommendations regarding equipment needs will be made at that time. Gillian Ernandez MD Booth Operator of Pediatrics and Neurology [facility] documented in this encounter Progress Notes Gillian Ernandez MD - 08/10/2012 3:54 PM PDTPediatric Neurology Attending Outpatient N ote I am familiar with Mikayla Weiss's medical history and the current active probl [...] Dr. Voss's documentation. Together Dr. Voss and I shaka xtensively reviewed the assessment and plan as outlined [...] counseling and coordinating care. Gillian Ernandez MD Booth Operator of Pediatrics and Neurology [facility] Estrellita BENAVIDES, [facility] - 07/31/2012 10:13 AM PDT . NEUROLOGY [...] given a wheelchair and laid down. The day she was nauseated and could not go [...] hers". Family History: DM Renal failure RA GA Review of Systems: A complete review of [...] gait problem. 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 S he also has been having pain which might be the reason for the gait problems. She will need evaluation by PT for gait training and rehabilitation. She would also need evaluation with a psychologist for counseling and might need it on the ferry terminal supervisor. She denied any abuse at [facility] or at home. Plan: -Return to [...]
--- OUTSIDE RECORDS SUMMARY | ~2020-02-16 | XMS | Encounter Summary ---
Demographics + + + | Address | [address] | | | [place] [address] | + + + | Home Phone | | + + + | Preferred Language | Unknown | + + + | Marital Status | Single | + + + | Jain Affiliation | Unknown | + + + | Race | White | + + + | Ethnic Group | Not or | + + + Author + + + | Author | [facility] | | | and Fredyana | + + + | Organization | [facility] | | | and [...] Team Providers + +------+ + | Care Industrial Maintenance Electrician Name | Role | Phone | + +------+ + | No, Physician | PCP | Unavailable | + +------+ + Reason for Visit + + + | Reason | Comments | + + + | Threatened | | | Miscarriage | | + + + Encounter Details +--------+ + + + + | Date | Type | Department | Care Team | Description | +--------+ + + + + | 04/06/ | Emergency | [facility] | Juventino Kamara MD | Miscarriage (Primary | | 2019 | | [facility] | [address] | Dx) | | | | CENTER [address] | [place] | | | | | [place] | [address] | | | | | [address] | | | | | | [phone] | | | +--------+ + + + + Social History + +-------+ +--------+------+ | Tobacco Use | Types | Packs/Day | Years | Date | | | | | Used | | + +-------+ +--------+------+ | Current Every Day | | | | | | Smoker | | | | | + +-------+ +--------+------+ + +---+---+---+ | Smokeless Tobacco: | | | | | Never Used | | | | + +---+---+---+ + + +---------+ + | Alcohol Use | Drinks/Week | oz/Week | Comments | + + +---------+ + | Never | | | | + + +---------+ + + + + + | Alcohol Habits | Answer | Date Recorded | + + + + | How often do you have a drink containing | Never | 04/06/2019 | | alcohol? | | | + + + + | How many drinks containing alcohol do you | Not asked | | | have on a typical day when you are | | | | drinking? | | | + + + + | How often do you have six or more drinks on | Not asked | | | one occasion? | | | + + + + + + + | Sex Assigned at | Date Recorded | | | | + + + | Not on file | | + + + documented as of this encounter Last Filed Vital Signs + + + + + | Vital Sign | Reading | Time Taken | Comments | + + + + + | Blood Pressure | 123/74 | 04/06/2019 5:33 PM | | | | | PST | | + + + + + | Pulse | 92 | 04/06/2019 5:33 PM | | | | | PST | | + + + + + | Temperature | 36.7 C (98 F) | 04/06/2019 2:36 PM | | | | | PST | | + + + + + | Respiratory Rate | 16 | 04/06/2019 5:33 PM | | | | | PST | | + + + + + | Oxygen Saturation | 98% | 04/06/2019 5:33 PM | | | | | PST | | + + + + + | Inhaled Oxygen | - | - | | | Concentration | | | | + + + + + | Weight | 102.1 kg (225 lb) | 04/06/2019 2:36 PM | | | | | PST | | + + + + + | Height | 160 cm (5' 3") | 04/06/2019 2:36 PM | | | | | PST | | + + + + + | Body Mass Index | 39.86 | 04/06/2019 2:36 PM | | | | | PST | | + + + + + documented in this encounter Discharge Instructions Instructions Juventino Kamara MD - 04/06/2019May use Tylenol and/or ibuprofen for pain Return for severe increasing abdominal pain, excessive vaginal bleeding, fainting, fever, o ther new complaints AttachmentsThe following attachments cannot be sent through Care Everywhere.[facility] Instructions (Uzbek)documented in this encounter ED Notes Juventino Kamara MD - 04/06/2019 3:13 PM PST Chief Complaint: Threatened miscarriage HPI: Mikayla Grullon MiomargauxYared is a 23 y.o. female who presents to the Emergency Department who is currently around 4-6 weeks by dates. She's had vaginal bleeding think she pass ed some tissue. She did have some cramping abdominal pain. Bleeding was heavy for while bu t is now tapered off and quite light. She's not been lightheaded. No syncope. No chest pa in. No shortness of breath. She's had some left-sided pain with this. She been seen at an outside hospital and had a workup that at least included labs. 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 The patient has a past surgical history that includes Bell [address] surgery (Right). Family and Social History: The patient's family history is not on file. The patient reports that she has been smoking. She has never used smokeless tobacco. She reports that she does not drink alcohol or use dr ugs. Medications: No current outpatient medications on file prior to encounter. Allergies: Allergies Allergen Reactions Nsaids Myalgia Review of Systems: As per HPI. All other systems were reviewed and are negative Physical Examination: VITAL SIGNS: (first vital signs):Temp: 36.7 C (98 F) Pulse: 84 Resp: 16 SpO2: 98 % BP: 128/89 General: Alert, appears well, non toxic Eyes::EOMI, no Ptosis ENMT: Normocephalic, atraumatic, OP clear Neck: Supple, full range of motion, no tracheal deviation Cardiovascular: Normal rate and rhythm, no murmurs, rubs or gallops Respiratory: CTA bilateral, no wheeze/rhonci or resp distress GI: Abdomen soft, non tender, no rebound or guarding Musculoskeletal: normal ROM, no edema, no cyanosis Neurologic: Alert, no cranial nerve deficits, no focal deficits Skin: warm and dry, no ulcerations Labs: Type and Rh A + CBC unremarkable HCG Quant 1841 Imaging: (Xrays interpreted by me) Ultrasound OB reveals miscarriage ED Course & Medical Decision Making: Patient here with vaginal bleeding and sounds like she's passed products she has some debri s in the canal but no IUP identified had been identified on previous ultrasound from outside facility as per the patient. It appears she has miscarried. She does not appear ill. Mejía s not appear to need acute surgical intervention. We'll plan on discharge and recommend sym ptomatic treatment with return precautions. Disposition: Discharge Final Impression: Miscarriage Juventino Kamara MD 04/06/19 1728 urnaisha, Umm De La Garza RN - 04/06/2019 2:35 PM PSTPt with light vaginal bleeding for the last week, and then last ni ght had heavy bleeding with passed tissue. Pt approx 4-5 weeks . Pt worried she bell d a miscarriage. do cumented in this encounter Plan of Treatment + +------+--------+ + + | Name | Type | Priori | Associated Diagnoses | Date/Time | | | | ty | | | + +------+--------+ + + | ED INFORMATION | TRELL | Routin | | 04/06/2019 2:33 PM | | EXCHANGE | | e | | PST | + +------+--------+ + + documented as of this encounter Procedures + +--------+ + + + | Procedure Name | Priori | Date/Time | Associated Diagnosis | Comments | | | ty | | | | + +--------+ + + + | US OB < 14 WEEKS W | STAT | 04/06/2019 | | Results for this | | TRANSVAGINAL | | 5:20 PM | | procedure are in the | | | | PST | | results section. | + +--------+ + + + | EXTRA VÁSQUEZ TOP TUBE | Routin | 04/06/2019 | | Results for this | | | e | 3:45 PM | | procedure are in the | | | | PST | | results section. | + +--------+ + + + | EXTRA GREEN TOP TUBE | Routin | 04/06/2019 | | Results for this | | | e | 3:44 PM | | procedure are in the | | | | PST | | results section. | + +--------+ + + + | EXTRA BLUE TOP TUBE | Routin | 04/06/2019 | | Results for this | | | e | 3:44 PM | | procedure are in the | | | | PST | | results section. | + +--------+ + + + | CBC W/AUTO | STAT | 04/06/2019 | | Results for this | | DIFFERENTIAL | | 3:25 PM | | procedure are in the | | | | PST | | results section. | + +--------+ + + + | EXTRA GOLD TOP TUBE | Routin | 04/06/2019 | | Results for this | | | e | 3:25 PM | | procedure are in the | | | | PST | | results section. | + +--------+ + + + | ABO RH | STAT | 04/06/2019 | | Results for this | | | | 3:25 PM | | procedure are in the | | | | PST | | results section. | + +--------+ + + + | HCG, SERUM, QUANT | STAT | 04/06/2019 | | Results for this | | | | 3:25 PM | | procedure are in the | | | | PST | | results section. | + +--------+ + + + | ED INFORMATION | Routin | 04/06/2019 | | | | EXCHANGE | e | 2:33 PM | | | | | | PST | | | + +--------+ + + + +---+--------+ | | | | | Proced | | | ure | | | Note - | | | Joe, | | | Lab In | | | | | | Hlseve | | | n - | | | | | | 2018 | | | 2:34 | | | PM PST | | | | | | Format | | | ting | | | of | | | this | | | note | | | might | | | be | | | differ | | | ent | | | from | | | the | | | origin | | | al.COL | | | LECTIV | | | E?NOTI | | | FICATI | | | ON?11/ | | | [birth year]/201 | | | 9 | | | 14:32? | | | BRATLI | | | E-NORR | | | IS, | | | ELIZAB | | | ETH | | | L?MRN: | | | | | | [id number] | | | [id number] | | | riteri | | | a Met | | | Care | | | Guidel | | | rebel | | | 4 | | | visits | | | in | | | 60Secu | | | rity | | | and | | | Safety | | | No | | | recent | | | | | | Securi | | | ty | | | Events | | | | | | curren | | | tly on | | | | | | fileED | | | Care | | | Guidel | | | inesTh | | | ere | | | are | | | curren | | | tly no | | | ED | | | Care | | | Guidel | | | rebel | | | for | | | this | | | patien | | | t. | | | Please | | | check | | | your | | | facili | | | ty's | | | medica | | | l | | | record | | | s | | | system | | | .Care | | | Histor | | | yMedic | | | al/Manuel | | | [email or web address] | | | /10/18 | | | 12:00 | | | AM | | | [facility] [place] [facility] | [facility] | | [facility] | | | alHX: | | | KATIE | | | N-[place]TON | | | E, | | | PERICA | | | RDITIS | | | , | | | ABSCES | | | S R | | | AXILLA | | | Prescr | | | iption | | | Drug | | | Report | | | (12 | | | Mo.)PD | | | MP | | | query | | | found | | | no | | | report | | | .E.D. | | | Visit | | | Count | | | (12 | | | mo.)Fa | | | cility | | | | | | Visits | | | Low | | | Acuity | | | | | | Provid | | | ence | | | [facility] | | | l | | | Center | | | 1 0 | | | [facility] [place] | | | y | | | Hospit | | | al 4 0 | | | Total | | | 5 0 | | | Note: | | | Visits | | | | | | indica | | | te | | | total | | | known | | | visits | | | . | | | Medica | | | id Low | | | | | | Acuity | | | Dx | | | are | | | the | | | number | | | of | | | primar | | | y | | | diagno | | | ses on | | | the | | | Medica | | | id's | | | Low | | | Acuity | | | dx | | | list. | | | | | | Recent | | | | | | Emerge | | | ncy | | | Depart | | | ment | | | Visit | | | [facility] | | | yDate | | | Facili | | | ty | | | City | | | State | | | Type | | | Diagno | | | ses or | | | Chief | | | | | | Compla | | | int | | | Nov | | | 29, | | | 2019 | | | Provid | | | ence | | | [facility] [place] [facility] [place] | | | [place] | | | Emerge | | | ncy | | | Poss | | | Miscar | | | riage | | | Nov | | | 28, | | | 2019 | | | [facility] [place] | | | [facility] | | | [place] | | | [place] | | | Emerge | | | ncy | | | Chief | | | Compla | | | int: | | | VAGINA | | | L | | | BLEEDI | | | NG | | | Nov | | | 25, | | | 2019 | | | [facility] [place] | | | [facility] | | | [place] | | | [place] | | | Emerge | | | ncy | | | 1 | | | Less | | | than 8 | | | weeks | | | | | | gestat | | | ion of | | | | | | pregna | | | ncy | | | | | | Allerg | | | y | | | status | | | to | | | analge | | | sic | | | agent | | | status | | | | | | Threat | | | ened | | | aborti | | | on | | | Hemorr | | | robert | | | in | | | early | | | pregna | | | ncy, | | | unspec | | | ified | | | | | | Nicoti | | | ne | | | depend | | | ence, | | | unspec | | | ified, | | | | | | uncomp | | | licate | | | d | | | Smokin | | | g | | | (tobac | | | co) | | | compli | | | cating | | | | | | pregna | | | ncy, | | | first | | | trimes | | | ter | | | Oct | | | 24, | | | 2019 | | | [facility] [place] | | | [facility] | | | [place] | | [place] | | | Emerge | | | ncy | | | | | | Allerg | | | y | | | status | | | to | | | analge | | | sic | | | agent | | | status | | | | | | Pain | | | in | | | left | | | ankle | | | and | | | joints | | | of | | | left | | | foot | | | Pain | | | in | | | right | | | ankle | | | and | | | joints | | | of | | | right | | | foot | | | | | | Nicoti | | | ne | | | depend | | | ence, | | | unspec | | | ified, | | | | | | uncomp | | | licate | | | d Sep | | | 15, | | | 2019 | | | [facility] [place] | | | [facility] | | | [place] | | | [place] | | | Emerge | | | ncy | | | Right | | | lower | | | | | | quadra | | | nt | | | pain | | | | | | Allerg | | | y | | | status | | | to | | | analge | | | sic | | | agent | | | status | | | | | | Nicoti | | | ne | | | depend | | | ence, | | | unspec | | | ified, | | | | | | uncomp | | | licate | | | d | | | Recent | | | | | | Inpati | | | ent | | | Visit | | | [facility] | | | yNo | | | record | | | ed | | | inpati | | | ent | | | visits | | | . Care | | | | | | TeamPr | | | ovider | | | | | | Specia | | | lty | | | Phone | | | Fax | | | Servic | | | e | | | Dates | | | THURMA | | | N, | | | COLLEE | | | N, | | | PLASTIC CUTTER-C | | | Nurse | | | Practi | | | tioner | | | ([phone]) | | | | | | [phone] | | | 66 | | | Sep | | | 16, | | | 2019 - | | | | | | Curren | | | t | | | Unknow | | | n | | | Clinic | | | /Cente | | | r | | | (541) | | | [phone] | | | 30 | | | Nov | | | 26, | | | 2019 - | | | | | | Curren | | | t | | | Shavonne | | | n | | | Bourre | | | t, | | | PA-C, | | | PA-C | | | Primar | | | y Care | | | (541) | | | | | | [phone] | | | 30 | | | (541) | | | 215-19 | | | 72 | | | Curren | | | t | | | Stanley, | | | | | | Bradle | | | y | | | Obdulio | | | MD | | | Treatm | | | ent | | | Curren | | | t | | | Collec | | | tive | | | Portal | | | This | | | patien | | | t has | | | regist | | | ered | | | at the | | | | | | Provid | | | ence | | | [facility] | [facility] | | | l | | | Center | | | | | | Emerge | | | ncy | | | Depart | | | ment | | | For | | | more | | | inform | | | ation | | | visit: | | | | | | https: | | | //secu | | | re.col | | | lectiv | | | emedic | | | al.com | | | /notif | | | [id number] | | | [id number] | | | [email or web address] | | | [email or web address] | | | [email or web address] | | | [id number] | | | 4b | | | PLEASE | | | NOTE: | | | 1. | | | Any | | | care | | | recomm | | | endati | | | ons | | | and | | | other | | | clinic | | | al | | | inform | | | ation | | | are | | | provid | | | ed as | | | guidel | | | rebel | | | or for | | | | | | histor | | | ical | | | purpos | | | es | | | only, | | | and | | | provid | | | ers | | | should | | | | | | exerci | | | se | | | their | | | own | | | clinic | | | al | | | judgme | | | nt | | | when | | | provid | | | ing | | | care. | | | 2. | | | You | | | may | | | only | | | use | | | this | | | inform | | | ation | | | for | | | purpos | | | es of | | | treatm | | | ent, | | | paymen | | | t or | | | health | | | care | | | operat | | | ions | | | activi | | | ties, | | | and | | | subjec | | | t to | | | the | | | limita | | | tions | | | of | | | applic | | | able | | | Collec | | | tive | | | Polici | | | es. | | | 3. | | | You | | | should | | | | | | consul | | | t | | | direct | | | ly | | | with | | | the | | | organi | | | zation | | | that | | | provid | | | ed a | | | care | | | guidel | | | ine or | | | other | | | | | | clinic | | | al | | | histor | | | y with | | | any | | | questi | | | ons | | | about | | | additi | | | onal | | | inform | | | ation | | | or | | | accura | | | cy or | | | comple | | | teness | | | of | | | inform | | | ation | | | provid | | | ed.? | | | 2019 | | | Collec | | | tive | | | Medica | | | l | | | Techno | | | logies | | | , Inc[employer] | | | - | | | [email or web address] | | | llecti | | | vemedi | | | [email or web address] | | | m | +---+--------+ documented in this encounter Results US OB < 14 Weeks W Transvaginal (04/06/2019 5:20 PM PST) + + | Specimen | + + | | + + + + + | Impressions | Performed At | + + + | Heterogeneous appearance of the endometrium may represent | [facility] | | products of conception. No intrauterine identified. Cannot | | | exclude early or ectopic . Follow-up ultrasound | | | may be acquired if clinically indicated. Small complex left | | | ovarian cyst, probable hemorrhagic versus corpus luteum cyst. | | | Dictated and Signed by: Arthur Correa MD Electronically signed: | | | 04/06/2019 6:34 PM | | + + + + + + | Narrative | Performed At | + + + | TECHNIQUE: Routine vásquez-scale and color flow Doppler imaging of the | [facility] | | pelvis using transabdominal and transvaginal technique. CLINICAL | | | INFORMATION: Vaginal Bleeding. COMPARISON: None available. | | | FINDINGS: UTERUS: Echotexture: Normal appearance of the | | | myometrium. Masses: None. Endometrium: No findings to suggest | | | intrauterine . Diffuse heterogeneous appearance of the | | | endometrium with internal vascularity. The endometrium measures up to | | | 9 mm in thickness. RIGHT ADNEXA: Echotexture and cysts: Normal. | | | Color Doppler: Arterial flow is present. Mass: None. LEFT | | | ADNEXA: Echotexture and cysts: Hypoechoic complex cyst measuring up | | | to 1.3 cm, probable hemorrhagic cyst versus corpus luteum cyst. | | | Color Doppler: Arterial flow is present. Mass: None. FREE FLUID: | | | None. | | + + + + + | Procedure Note | + + | Joe, Rad Results In - 04/06/2019 6:37 PM PST TECHNIQUE: Routine vásquez-scale and color | | flow Doppler imaging of the pelvis usingtransabdominal and transvaginal | | technique.CLINICAL INFORMATION: Vaginal Bleeding.COMPARISON: None available.FINDINGS: | | UTERUS:Echotexture: Normal appearance of the myometrium.Masses: None. Endometrium: No | | findings to suggest intrauterine . Diffuseheterogeneous appearance of the | | endometrium with internal vascularity. Theendometrium measures up to 9 mm in | | thickness.RIGHT ADNEXA:Echotexture and cysts: Normal.Color Doppler: Arterial flow is | | present. Mass: None.LEFT ADNEXA:Echotexture and cysts: Hypoechoic complex cyst measuring | | up to 1.3 cm, probablehemorrhagic cyst versus corpus luteum cyst.Color Doppler: | | Arterial flow is present. Mass: None.FREE FLUID: None.IMPRESSION: Heterogeneous | | appearance of the endometrium may represent products ofconception. No intrauterine | | identified. Cannot exclude early pregnancyor ectopic . Follow-up | | ultrasound may be acquired if clinicallyindicated.Small complex left ovarian cyst, | | probable hemorrhagic versus corpus luteum cyst.Dictated and Signed by: Arthur Correa | | Electronically signed: 04/06/2019 6:34 PM | | | |RIGHT ADNEXA: | |Echotexture and cysts: Normal. | |Color Doppler: Arterial flow is present. | |Mass: None. | | | |LEFT ADNEXA: | |Echotexture and cysts: Hypoechoic complex cyst measuring up to 1.3 cm, probable | |hemorrhagic cyst versus corpus luteum cyst. | |Color Doppler: Arterial flow is present. | |Mass: None. | | | |FREE FLUID: None. | | | | | |IMPRESSION: | | | |Heterogeneous appearance of the endometrium may represent products of | |conception. No intrauterine identified. Cannot exclude early | |or ectopic . Follow-up ultrasound may be acquired if clinically | |indicated. | | | |Small complex left ovarian cyst, probable hemorrhagic versus corpus luteum cyst. | | | |Dictated and Signed by: Arthur Correa MD | | Electronically signed: 04/06/2019 6:34 PM | + + + +---------+ + + | Performing | Address | City/State/Zipcode | Phone Number | | Organization | | | | + +---------+ + + | [facility] | | | | + +---------+ + + Extra Vásquez Top Tube (04/06/2019 3:45 PM PST) + +-------+ + + + | Component | Value | Ref Range | Performed | Pathologist | | | | | At | Signature | + +-------+ + + + | Extra Vásquez | Done | | [facility] | | | Top Tube | | | [facility] | | | | | | [facility] | | | | | | CENTER - | | | | | | LABORATORY | | + +-------+ + + + + + | Specimen | + + | Blood | + + + + + + + | Performing | Address | City/State/Zipcode | Phone Number | | Organization | | | | + + + + + | [facility] | [address] | [place] | [phone] | | [facility] | | [address] | | | - LABORATORY | | | | + + + + + Extra Green Top Tube (04/06/2019 3:44 PM PST) + +-------+ + + + | Component | Value | Ref Range | Performed | Pathologist | | | | | At | Signature | + +-------+ + + + | Extra Green | Done | | [facility] | | | Top Tube | | | [facility] | | | | | | [facility]ICAL | | | | | | CENTER - | | | | | | LABORATORY | | + +-------+ + + + + + | Specimen | + + | Blood | + + + + + + + | Performing | Address | City/State/Zipcode | Phone Number | | Organization | | | | + + + + + | [facility] | [address] | [place] | [phone] | | [facility] | | [address] | | | - LABORATORY | | | | + + + + + Extra Blue Top Tube (04/06/2019 3:44 PM PST) + +-------+ + + + | Component | Value | Ref Range | Performed | Pathologist | | | | | At | Signature | + +-------+ + + + | Extra Blue | Done | | [facility] | | | Top Tube | | | [facility] | | | | | | MEDICAL | | | | | | CENTER - | | | | | | LABORATORY | | + +-------+ + + + + + | Specimen | + + | Blood | + + + + + + + | Performing | Address | City/State/Zipcode | Phone Number | | Organization | | | | + + + + + | [facility] | [address] | [place] | [phone] | | [facility] | | [address] | | | - LABORATORY | | | | + + + + + Extra Gold Top Tube (04/06/2019 3:25 PM PST) + +-------+ + + + | Component | Value | Ref Range | Performed | Pathologist | | | | | At | Signature | + +-------+ + + + | Extra Gold | Done | | [facility] | | | Top Tube | | | [facility] | | | | | | MEDICAL | | | | | | CENTER - | | | | | | LABORATORY | | + +-------+ + + + + + | Specimen | + + | Blood | + + + + + + + | Performing | Address | City/State/Zipcode | Phone Number | | Organization | | | | + + + + + | [facility] | [address] | [place] | [phone] | | [facility] | | [address] | | | - LABORATORY | | | | + + + + + HCG, Serum, Quant (04/06/2019 3:25 PM PST) + + + + + + | Component | Value | Ref Range | Performed | Pathologist | | | | | At | Signature | + + + + + + | hCG Quant, | 1,841 (H)Comment: | 0 - 4 mIU/mL | [facility] | | | Serum | REFERENCE RANGE: | | [facility] | | | | | | MEDICAL | | | | B-hCG | | CENTER - | | | | LEVELGestational Age | | LABORATORY | | | | Expected hCG | | | | | | Values | | | | | | | | | | | | 0 | | | | | | .2-1 week | | | | | | 5-50 | | | | | | mIU/mL1-2 weeks | | | | | | 50-500 | | | | | | mIU/mL2-3 weeks | | | | | | 100-5,000 | | | | | | mIU/mL3-4 weeks | | | | | | 500-10,000 | | | | | | mIU/mL4-5 weeks | | | | | | 1,000-50,000 | | | | | | mIU/mL5-6 weeks | | | | | | 10,000-100,000 | | | | | | mIU/mL6-8 weeks | | | | | | 15,000-200,000 | | | | | | mIU/mL2-3 months | | | | | | 10,000-100,000 | | | | | | mIU/mL | | | | + + + + + + + + | Specimen | + + | Blood | + + + + + + + | Performing | Address | City/State/Zipcode | Phone Number | | Organization | | | | + + + + + | [facility] | [address] | [place] | [phone] | | [facility] | | [address] | | | - LABORATORY | | | | + + + + + ABO Rh (04/06/2019 3:25 PM PST) + + + + + + | Component | Value | Ref Range | Performed | Pathologist | | | | | At | Signature | + + + + + + | ABO | A | | [facility] | | | | [facility] | | | | | | MEDICAL | | | | | | CENTER - | | | | | | BLOOD BANK | | + + + + + + | Rh Type | Positive | | [facility] | | | | | | [facility] | | | | | | MEDICAL | | | | | | CENTER - | | | | | | BLOOD BANK | | + + + + + + + + | Specimen | + + | Blood | + + + + + + + | Performing | Address | City/State/Zipcode | Phone Number | | Organization | | | | + + + + + | [facility] | [address] | [place] | | | [facility] | | [address] | | | - BLOOD BANK | | | | + + + + + CBC w/ Auto Differential (04/06/2019 3:25 PM PST) + + + + + + | Component | Value | Ref Range | Performed | Pathologist | | | | | At | Signature | + + + + + + | White Blood | 7.7 | 4.0 - 11.0 K/uL | [facility] | | | Cells | | | [facility] | | | | | | [facility] | | | | | | [facility] - | | | | | | LABORATORY | | + + + + + + | Red Blood | 4.79 | 3.70 - 5.20 | [facility] | | | Cells | | M/uL | [facility] | | | | | | [facility] | | | | | | [facility] - | | | | | | LABORATORY | | + + + + + + | Hemoglobin | 14.8 | 11.5 - 16.0 | [facility] | | | | | g/dL | [facility] | | | | | | [facility] | | | | | | C[facility] - | | | | | | LABORATORY | | + + + + + + | Hematocrit | 43.8 | 34.0 - 47.0 % | [facility] | | | | | | [facility] | | | | | | [facility] | | | | | | [facility] - | | | | | | LABORATORY | | + + + + + + | MCV | 91.4 | 83.0 - 101.0 fL | [facility] | | | | | | [facility] | | | | | | [facility] | | | | | | C[facility] - | | | | | | LABORATORY | | + + + + + + | MCH | 30.9 | 28.0 - 35.0 pg | [facility] | | | | | [facility] | | [facility] | [facility] | | | | | | [facility] - | | | | | | LABORATORY | | + + + + + + | MCHC | 33.8 | 32.0 - 36.0 | [facility] | | | | | g/dL | [facility] | [facility] | [facility] | | | | | | CENTER - | | | | | | LABORATORY | | + + + + + + | RDW-CV | 12.0 | <15.0 % | [facility] | | | | | | [facility] | [facility] | [facility] | | | | | | C[facility] - | | | | | | LABORATORY | | + + + + + + | RDW-SD | 40.6 | 35.1 - 46.3 fL | [facility] | | | | | | [facility] | [facility] | [facility] | | | | | | CENTER - | | | | | | LABORATORY | | + + + + + + | Platelet | 349 | 140 - 440 K/uL | [facility] | | | Count | | | [facility] | | [facility] | [facility] | | | | | | CENTER - | | | | | | LABORATORY | | + + + + + + | MPV | 9.3 | 6.5 - 12.4 fL | [facility] | | | | | | [facility] | [facility] | [facility] | | | | | | CENTER - | | | | | | LABORATORY | | + + + + + + | % | 67.1 | 45.0 - 82.0 % | [facility] | | | Neutrophils | | | [facility] | [facility] | | | | | | CENTER - | | | | | | LABORATORY | | + + + + + + | % | 23.3 | 20.0 - 45.0 % | [facility] | | | Lymphocytes | | | [facility] | | | | | [facility] | | | | | | CENTER - | | | | | | LABORATORY | | + + + + + + | % Monocytes | 7.7 | 4.0 - 12.0 % | [facility] | | | | | | [facility] | | | [facility] | [facility] | | | | | | CENTER - | | | | | | LABORATORY | | + + + + + + | % | 1.0 | 0.0 - 5.0 % | [facility] | | | Eosinophils | | | [facility] | [facility] | | | | | | CENTER - | | | | | | LABORATORY | | + + + + + + | % Basophils | 0.4 | 0.0 - 1.0 % | [facility] | | | | | | [facility] | | | | | [facility] | | | | | | CENTER - | | | | | | LABORATORY | | + + + + + + | % Immature | 0.5 (H)Comment: | 0.0 - 0.4 % | [facility] | | | Granulocyte | Preliminary studies have | [facility] | | | s | indicated the IG% | | MEDICAL | | | | and/or IG# show promise | | CENTER - | | | | as an early indicator | | LABORATORY | | | | for infection. For | | | | | | patients, use | | | | | | the special reference | | | | | | ranges listed below. | | | | + + + + + + | Absolute | 5.17 | 1.80 - 8.50 | [facility] | | | Neutrophils | | K/uL | [facility] | [facility] | | | | | | CENTER - | | | | | | LABORATORY | | + + + + + + | Absolute | 1.80 | 0.60 - 3.20 | [facility] | | | Lymphocytes | | K/uL | [facility] | | | | | | MEDICAL | | | | | | CENTER - | | | | | | LABORATORY | | + + + + + + | Absolute | 0.59 | 0.00 - 1.00 | [facility] | | | Monocytes | | K/uL | [facility] | | | | | | MEDICAL | | | | | | CENTER - | | | | | | LABORATORY | | + + + + + + | Absolute | 0.08 | 0.00 - 0.40 | [facility] | | | Eosinophils | | K/uL | [facility] | | | | | | [facility]ICAL | | | | | | CENTER - | | | | | | LABORATORY | | + + + + + + | Absolute | 0.03 | 0.00 - 0.10 | [facility] | | | Basophils | | K/uL | [facility] | | | | | | [facility]ICAL | | | | | | CENTER - | | | | | | LABORATORY | | + + + + + + | Absolute | 0.04 (H)Comment: For | 0.00 - 0.03 | [facility] | | | Immature | patients, use | K/uL | [facility] | | | Granulocyte | the special reference | | MEDICAL | | | s | ranges listed below. | | CENTER - | | | | | | LABORATORY | | + + + + + + | % nRBC | 0 | 0 - 2 per 100 | [facility] | | | | | WBCs | [facility] | | | | | MEDICAL | | | | | | CENTER - | | | | | | LABORATORY | | + + + + + + | Absolute | 0.00 | 0.00 - 0.01 | [facility] | | | nRBC | | K/uL | [facility] | | | | | | MEDICAL | | | | | | CENTER - | | | | | | LABORATORY | | + + + + + + + + | Specimen | + + | Blood | + + + + + | Narrative | Performed At | + + + | IMMATURE GRANULOCYTES - For patients, use the following | [facility] | | reference ranges: Trim. Absolute (K/uL) Percentage (%) | [facility] | | 1st 0.003-0.091 K/uL 0.0-0.9% 2nd 0.007-0.247 K/uL | [facility] | | 0.1-2.0% 3rd 0.018-0.456 K/uL 0.1-2.0% | - LABORATORY | + + + + + + + + | Performing | Address | City/State/Zipcode | Phone Number | | Organization | | | | + + + + + | [facility] | [address] | [place] | [phone] | | [facility] | | [address] | | | - LABORATORY | | | | + + + + + documented in this encounter Visit Diagnoses + + | Diagnosis | + + | Miscarriage - Primary Unspecified spontaneous without mention of | | complication | + + documented in this encounter
--- OUTSIDE RECORDS SUMMARY | ~2020-02-16 | XMS | Clinical Summary ---
Demographics + + + | Address | [address] | | | [place] [address] | + + + | Home Phone | | + + + | Preferred Language | Unknown | + + + | Marital Status | Single | + + + | Temple Affiliation | Unknown | + + + | Race | White | + + + | Ethnic Group | Not or | + + + Author + + + | Author | [facility] | | | and Fredyana | + + + | Organization | [facility] | | | [...] Team Providers + +------+ + | Care Cemetery Manager Name | Role | Phone | + +------+ + | No, Physician | PCP | Unavailable | + +------+ + Allergies + + + + + + | Active Allergy | Reactions | Severity | Noted | Comments | | | | | Date | | + + + + + + | Nsaids | Myalgia | | 04/06/20 | | | | | | 19 | | + + + + + + Medications No known medications Active Problems + + + | | Comments | + + + | Yes | | + + + No additional problems on file Social History + +-------+ +--------+------+ [...] + + + + + + | | Comments | + + + | Yes | | + + + + + [...] | | Done | | + + + + + | Hepatitis C | | | | | Screening | 8 | | | + + + + + | Vaccine: | | | | | Pneumococcal 19-64 | 4 | | | | (1 of 1 - PPSV23) | | | | + + + + + | Vaccine: | | 01/14/19 | | | Dtap/Tdap/Td (5 - | 9 | 99, | | | Tdap) | | 06/04/18 | | | | | 99, | | | | | 03/31/19 | | | | | 98, | | | | | Addition | | | | | al | | | | | history | | | | | exists | | + + + + + | Cervical Cancer | | | | | Screening (Pap) | 9 | | | + + + + + | Vaccine: Influenza | | | | | (#1) | 0 | | | + + + + + Results Not on filefrom Last 3 Months Insurance + +--------+ +--------+ +---------+--------+ | Payer | Benefi | Subscriber | Effect | Phone | Address | Type | | | t Plan | ID | lawrence | | | | | | / | | Dates | | | | | | Group | | | | | | + +--------+ +--------+ +---------+--------+ | [employer] | [employer] | [id number] | 04/06/ | [phone] | | Medica | | MEDICAID HMO | HEALTH | | 2019-P | 1 | | id | | | MDCD | | resent | | | | | | [place] | | | | | | + +--------+ +--------+ +---------+--------+ + +--------+ +--------+ + + | Guarantor Name | Accoun | Relation to | Date | Phone | Billing Address | | | t Type | Patient | of | | | | | | | | | | + +--------+ +--------+ + + | Nicole Weiss | Person | Self | [birth year] | [address] | | marylin [place] | owen/Marquise | | 1996 | [phone] | [place] | | | evans | | | 6 (Home) | [address] | + +--------+ +--------+ + + Advance Directives + + + + + | Type | Date Recorded | Patient | Explanation | | | | Candy Catcher | | + + + + + | Power of | | | | | Anesthesia Technician | | | | + + + + + | Advance | 04/06/2019 | | | | Directive | 2:44 PM | | | + + + + +
--- OUTSIDE RECORDS SUMMARY | ~2020-02-16 | XMS | Encounter Summary ---
Demographics + + + | Address | [address] | | | [place] [address] | + + + | Home Phone | | + + + | Preferred Language | Unknown | + + + | Marital Status | Single | + + + | Buddhism Affiliation | NON | + + + [...] [place] | | | | | [address] | | + + + + + Care Team Providers + +------+ + | Care Cloth Printing Utility Worker Name | Role | Phone | + +------+ + PCP | Unavailable | + +------+ + Encounter Details +--------+ + + + + | Date | Type | Department | Care Team | Description | +--------+ + + + + | 03/28/ | Results | [facility] | Bibi Cannon MD | | | 2001 | Only | [address] | [address] | | | | | [place] | [place], | | | | | [address] | [place] [address] | | | | | [phone] | [phone] | | | | | | | [...] Performed At | + + + | [id number] Erroneous request. | [facility] | | | DEPARTMENT OF | | | PATHOLOGY | + + + + + + + + | Performing | Address | City/State/Zipcode | Phone Number | | Organization | | | | + + + + + | [facility] DEPARTMENT OF | [address] | [place] [address] | | | PATHOLOGY | [address] | | | + + + + + | [facility] DEPARTMENT OF | [address] | [place] [address] | | | PATHOLOGY | [address] | | | + + + + + CHEMISTRY MASTER PANEL (04/02/2002 6:01 AM PST) + + | Specimen | + + | | + + + + + | Narrative | Performed At | + + + | [id number] Erroneous request. | [facility] | | | DEPARTMENT OF | | | PATHOLOGY | + + + + + + + + | Performing | Address | City/State/Zipcode | Phone Number | | Organization | | | | + + + + + | [facility] | [address] | [place] [address] | | | PATHOLOGY | [address] | | | + + + + + | [facility] | [address] [place] [address] | [place] [address] | | | PATHOLOGY | [address] [...] | + + + + + | [facility] | [address] | [place] [address] | | | PATHOLOGY | [address] | | | + + + + + | [facility] | [address] [place] [address] | [place] [address] | | | PATHOLOGY | [address] [...] for | | | | | | Guillian-Washburn syndrome. | | | | | | [...] in | | | | | | Guillian-Washburn. END OF | | | | | | IMPRESSION: | | | | + + + + + + + + | Specimen | + + | | + + + +---------+ + + | Performing | Address | City/State/Zipcode | Phone Number | | Organization | | | | + +---------+ + + | [facility] DEPARTMENT OF | | | | [...] | | | CONTRAST | 2: CAROLINE LUU | | | | | | EdMRI C SPINE: | | | | | | 03/29/2002 Dictated | | | | | | 03/29/2002 CLINICAL | | | | | | HISTORY: Concern for | | | | | | Guillian-Washburn syndrome. | | | | | | [...] in | | | | | | Guillian-Washburn. END OF | | | | | | IMPRESSION: | | | | + + + + + + + + | Specimen | + + | | + + + +---------+ + + | Performing | Address | City/State/Zipcode | Phone Number | | Organization | | | | + +---------+ + + | [facility] DEPARTMENT OF | | | | | RADIOLOGY | | | | + +---------+ + + MRI PELVIS WWO CONTRAST (03/29/2002 3:25 PM PST) + + + + + + | Component | Value | Ref Range | Performed | Pathologist | | | | | At | Signature | + + + + + + | MR PELVIS | Radiologist 1: BI | | | | | [facility] | GIAN Goodrich-Radiologist | | | | | CONTRAST | 2: GIAN PAT | | | | | | [place].MRI OF THE PELVIS: | | | | | | 03/29/2002 | | | | | | Dictated: 03/29/2002 | | | | | | COMPARISON: No | | | | | | comparisons. CLINICAL | | | | | | HISTORY: [id number] | | | | | | female [...] | | + +---------+ + + | [facility] DEPARTMENT OF | | | | [...] + | MR THORACIC | Radiologist 1: JUS, | | | | | SPINE WO | Ed VELAZQUEZ-Radiologist | | | | | CONTRST | 2: CAROLINE LUU, | | | | | | EdMRI C SPINE: | | | | | | 03/29/2002 Dictated | | | | | | 03/29/2002 CLINICAL | | | | | | HISTORY: Concern for | | | | | | Guillian-Washburn syndrome. | | | | | | [...] in | | | | | | Guillian-Washburn. END OF | | | | | | IMPRESSION: | | | | + + + + + + + + | Specimen | + + | | + + + +---------+ + + | Performing | Address | City/State/Zipcode | Phone Number | | Organization | | | | + +---------+ + + | [facility] | | | | | [...] DEPARTMENT OF | [address] | [place] [address] | | | PATHOLOGY | [address] | | | + + + + + | [facility] DEPARTMENT | [address] | [place], [place] [address] | | | PATHOLOGY | [address] [...] | + + + + + | [facility] | [address] | [place] [address] | | | PATHOLOGY | [address] | | | + + + + + | [facility] | [address] | [place] [address] | | | PATHOLOGY | [address] [...] | + + + + + | [facility] | [address] | [place] [address] | | | PATHOLOGY | [address] | | | + + + + + | [facility] | [address] | [place] [address] | | | PATHOLOGY | [address] [...] DEPARTMENT OF | [address] | [place] [address] | | | PATHOLOGY | [address] | | | + + + + + | [facility] | [address] | [place] [address] | | | PATHOLOGY | [address] | | | + + + + + documented in this encounter Visit Diagnoses Not on filedocumented in this encounter"
--- OUTSIDE RECORDS SUMMARY | ~2020-02-16 | XMS | Encounter Summary ---
Demographics + + + | Address | [address] | | | [place] [address] | + + + | Home Phone | | + + + | Preferred Language | Unknown | + + + | Marital Status | Single | + + + | Restorationist Affiliation | Unknown | + + + | Race | White | + + + | Ethnic Group | Not or | + + + Author + + + | Author | [facility] | | | and Fredyana | + + + | Organization | [facility] | | | [...] Team Providers + +------+ + | Care Closing Machine Operator Name | Role | Phone | + +------+ + PCP | Unavailable | + +------+ + Encounter Details +--------+ + + + + | Date | Type | Department | Care Team | Description | +--------+ + + + + | 03/23/ | Hospital | [facility] | | | | 2001 - | Encounter | MED CTR MED ONC | | | | | | [address] | | | | 03/24/ | | [place] [address] | | | | 2001 | | [phone] | | | +--------+ + + + [...]
--- OUTSIDE RECORDS SUMMARY | ~2020-02-16 | XMS | Encounter Summary ---
Demographics + + + | Address | [address] | | | [place] [address] | + + + | Home Phone [...] + + + | Author | [facility] | | | and Fredyana | + + + | Organization | [facility] | | | [...] Team Providers + +------+ + | Care Software Test Technician Name | Role | Phone | + +------+ + PCP | Unavailable | + +------+ + Encounter Details +--------+ + + + + | Date | Type | Department | Care Team | Description | +--------+ + + + + | 04/24/ | Hospital | [facility] | Unknown, | | | 2001 - | Encounter | MED CTR OP REHAB | MD Otoniel . | | | | | [address] | [phone] | | | 05/24/ | | [place] [address] | | | | 2003 | | [phone] | | | +--------+ + + + [...]
--- OUTSIDE RECORDS SUMMARY | 2020-02-16 19:38 | XMS ---
PreManage Notification: YUE KING Security Cutting Torch Operator Events No recent Security Events currently on file CRITERIA MET - Group Notification CARE PROVIDERS ALOK MITCHELL Nurse Practitioner 01/22/2019-Current PHONE: [phone] Name [facility] 04/03/2019-Current PHONE: [phone] Donavon has no Care Guidelines for this patient. Care History Medical/Surgical 12/24/2019 [facility] -PATIENT OBGYN APT WITH DR VARELA - 01/03/2020. 06/26/2019 [facility] - PATIENT HAS BEEN WORKING WITH MELISSA AGUILARCOUNSELOR MANAGER AT [facility]. - PATIENT HAS NOT SEEN PCP AT [facility] SINCE OCTOBER 2018. - PATIENT HAS A COSMETIC ACCOUNT COORDINATOR FOR LEFT ANKLE/FOOT PAIN-ONGOING SINCE 2018- COSMETIC ACCOUNT COORDINATOR DR ALVAREZ LAST SEEN 1 TIME ON 05/11/2018. - PLEASE HAVE PATIENT CONTACT DR ALVAREZ FOR CHRONIC LEFT FOOT PAIN: [address] [place] [address] P: [phone] 01/22/2019 [facility] \T\middot;\T\nbsp; PATIENT IS A [place] ELIGIBLE. \T\middot;\T\nbsp; PLEASE REFER PATIENT TO [facility] FOR NON EMERGENT MEDICAL NEEDS. \T\middot;\ T\nbsp; [facility] CAN SEE PATIENTS SAME DAY FOR APTS IF PATIENT CALLS FIRST THING IN THE MORNING. E.D. VISIT COUNT (12 MO.) [address] [place] [facility] TOTAL 10 NOTE: Visits indicate total known visits. ED/UCC VISIT TRACKING (12 MO.) 02/16/2020 19:35 [facility] [place] [facility] COMPLAINT: - SORE THROAT 12/20/2019 07:07 [facility] [place] TYPE: Emergency COMPLAINT: - VAGINAL BLEEDING, APROX 6 WEEKS DIAGNOSES: - Smoking (tobacco) complicating , first trimester - Abnormal uterine and vaginal bleeding, unspecified - Threatened - Less than 8 weeks gestation of - Nicotine dependence, unspecified, uncomplicated 10/25/2019 08:03 [facility] [place] TYPE: Emergency [...] Nicotine dependence, unspecified, uncomplicated 06/20/2019 16:49 [facility] [place] TYPE: Emergency COMPLAINT: - LEFT ANKLE PAIN,WORKERS COMP DIAGNOSES: - Nicotine dependence, unspecified, uncomplicated - Other and unspecified overexertion or strenuous movements or - Pain in left ankle and joints of left foot - Contusion of left ankle, initial encounter 06/13/2019 19:07 [facility] [place] TYPE: Emergency COMPLAINT: - L ANKLE INJURY DIAGNOSES: - Other and unspecified overexertion or strenuous movements or - Unspecified sprain of left foot, initial encounter - Nicotine dependence, unspecified, uncomplicated - Pain in left ankle and joints of left foot - Sprain of unspecified ligament of left ankle, initial encount 04/06/2019 14:32 [facility] [place] TYPE: Emergency DIAGNOSES: - Poss Miscarriage - Complete or unspecified spontaneous without complica - Threatened Miscarriage 04/05/2019 21:56 [facility] [place] TYPE: Emergency [...] complicating , first trimester 03/01/2019 08:16 [facility] [place] TYPE: Emergency COMPLAINT: - LEFT ANKLE INJURY DIAGNOSES: - Allergy status to analgesic agent status - Pain in left ankle and joints of left foot - Pain in right ankle and joints of right foot - Nicotine dependence, unspecified, uncomplicated INPATIENT VISIT TRACKING (12 MO.) No inpatient visits to display in this time frame [email or web address]
[2020-02-16] MEDS ORDERED: ULTRAM50 MG PO (20:56)
== END 2020-02-16 21:50 | disposition home or self-care (01) ==
LOC: ED 19:35
DX: J02.9 Acute pharyngitis, unspecified (principal); F17.200 Nicotine dependence, unspecified, uncomplicated
CPT/HCPCS: 85025; 86308; 87880; 99283

== ENCOUNTER 2020-04-01 17:07 | Emergency (ER) | payer OTHER ==
[~2020-04-01] VITALS: Ht 160 cm; Wt 103.0 kg
[~2020-04-01 17:07] MED LIST changes: +ULTRAM50 MG PO
--- OUTSIDE RECORDS SUMMARY | 2020-04-01 17:10 | XMS ---
PreManage Notification: YUE KING Security Discharging Machine Operator Events No recent Security Events currently on file CRITERIA MET - Group Notification CARE PROVIDERS ALOK MITCHELL Nurse Practitioner 01/22/2019-Current PHONE: [phone] Name [facility] 04/03/2019-Current PHONE: [phone] Don[place]on has no Care Guidelines for this patient. Care History Medical/Surgical 12/24/2019 [facility] -PATIENT OBGYN APT WITH DR VARELA - 01/03/2020. 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. - PATIENT HAS NOT SEEN PCP AT [facility] SINCE OCTOBER 2018. - PATIENT HAS A NEWSAGENT FOR LEFT ANKLE/FOOT PAIN-ONGOING SINCE 2018- NEWSAGENT DR ALVAREZ LAST SEEN 1 TIME ON 05/11/2018. - PLEASE HAVE PATIENT CONTACT DR ALVAREZ FOR CHRONIC LEFT FOOT PAIN: [address] [place] [address] P: [phone] 01/22/2019 [facility] \T\middot;\T\nbsp; PATIENT IS A [employer] ELIGIBLE. \T\middot;\T\nbsp; PLEASE REFER PATIENT TO [facility] FOR NON EMERGENT MEDICAL NEEDS. \T\middot;\ T\nbsp; [facility] CAN SEE PATIENTS SAME DAY FOR APTS IF PATIENT CALLS FIRST THING IN THE MORNING. E.D. VISIT COUNT (12 MO.) [address] [facility] TOTAL 10 NOTE: Visits indicate total known visits. ED/UCC VISIT TRACKING (12 MO.) 04/01/2020 17:07 [facility] [place] TYPE: Emergency COMPLAINT: - RT SIDED PAIN 02/16/2020 19:35 [facility] [place] TYPE: Emergency COMPLAINT: - SORE THROAT DIAGNOSES: - Acute pharyngitis, unspecified - Nicotine dependence, unspecified, uncomplicated 12/20/2019 07:07 [facility] [place] TYPE: Emergency [...] against or struck by other objects, initial encounter - Contusion of right hand, initial encounter [...] and unspecified overexertion or strenuous movements or postures, initial encounter - Pain in left ankle and joints of left foot - Contusion of left ankle, initial encounter 06/13/2019 19:07 [facility] [place] TYPE: Emergency COMPLAINT: - L ANKLE INJURY DIAGNOSES: - Other and unspecified overexertion or strenuous movements or postures, initial encounter - Unspecified sprain of left foot, initial encounter - Nicotine dependence, unspecified, uncomplicated - Pain in left ankle and joints of left foot - Sprain of unspecified ligament of left ankle, initial encounter 04/06/2019 14:32 [facility] [place]il [place] TYPE: Emergency DIAGNOSES: - Poss Miscarriage - Complete or unspecified spontaneous without complication - Threatened Miscarriage 04/05/2019 21:56 [facility] [place] TYPE: Emergency COMPLAINT: - VAGINAL BLEEDING DIAGNOSES: - Threatened - Nicotine dependence, unspecified, uncomplicated - Smoking (tobacco) complicating , first trimester - Allergy status to analgesic agent - Abnormal uterine and vaginal bleeding, unspecified 04/02/2019 20:20 [facility] TYPE: Emergency COMPLAINT: - VAGINAL BLEEDING DIAGNOSES: - Less than 8 weeks gestation of - Allergy status to analgesic agent - Threatened - Hemorrhage in early , unspecified - Nicotine dependence, unspecified, uncomplicated - Smoking (tobacco) complicating , first trimester INPATIENT VISIT TRACKING (12 MO.) No inpatient visits to display in this time frame [email or web address]
[2020-04-01] MEDS ORDERED: ZOFRAN4 MG PO (21:45)
[2020-04-01] MEDS ORDERED: KEFLEX500 MG PO (21:45)
== END 2020-04-01 22:27 | disposition home or self-care (01) ==
LOC: ED 17:07
DX: O99.891 Other specified diseases and conditions complicating pregnancy (principal); R10.9 Unspecified abdominal pain; O99.311 Alcohol use complicating pregnancy, first trimester; F10.10 Alcohol abuse, uncomplicated; O99.331 Smoking (tobacco) complicating pregnancy, first trimester; F17.200 Nicotine dependence, unspecified, uncomplicated; Z3A.01 Less than 8 weeks gestation of pregnancy
CPT/HCPCS: 76801; 76817; 80053; 81001; 84702; 84703; 85025; 99284-25; J0696; J1885; J2405; J3411; J7030

== ENCOUNTER 2020-09-30 22:08 | Emergency (ER) | payer OTHER ==
[~2020-09-30] VITALS: Ht 160 cm; Wt 103.0 kg
[~2020-09-30 22:08] MED LIST changes: +KEFLEX500 MG PO; +ZOFRAN4 MG PO
--- OUTSIDE RECORDS SUMMARY | 2020-09-30 22:10 | XMS ---
PreManage Notification: YUE KING Security Detonator Assembler Events No recent Security Events currently on file CRITERIA MET - Group Notification CARE PROVIDERS ALOK MITCHELL Nurse Practitioner 01/22/2019-Current PHONE: [phone] [facility] 04/03/2019-[facility] PHONE: [phone] Donavon has no Care Guidelines for this patient. Care History Medical/Surgical 12/24/2019 [facility] -PATIENT OBGYN APT WITH DR VARELA - 01/03/2020. 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 - PATIENT HAS NOT SEEN PCP AT [facility] SINCE OCTOBER 2018. - PATIENT HAS A WOVEN BLIND LOOM TENDER FOR LEFT ANKLE/FOOT PAIN-ONGOING SINCE 2018- WOVEN BLIND LOOM TENDER DR ALVAREZ LAST SEEN 1 TIME ON 05/11/2018. - PLEASE HAVE PATIENT CONTACT DR ALVAREZ FOR CHRONIC LEFT FOOT PAIN: [address] [place] [address] P: [phone] 01/22/2019 [facility] \T\middot;\T\nbsp; [facility]. \T\middot;\T\nbsp; PLEASE REFER PATIENT TO [facility] FOR NON EMERGENT MEDICAL NEEDS. \T\middot;\ T\nbsp; [facility] CAN SEE PATIENTS SAME DAY FOR APTS IF PATIENT CALLS FIRST THING IN THE MORNING. E.D. VIS[facility] (12 MO.) 5 [facility] TOTAL 5 NOTE: Visits indicate total known visits. ED/UCC VISIT TRACKING (12 MO.) 09/30/2020 22:09 [facility] [place] TYPE: Emergency COMPLAINT: - LT SIDE PAIN/11 WEEKS 04/01/2020 17:07 [facility] [place] TYPE: Emergency COMPLAINT: - RT SIDED PAIN DIAGNOSES: - Less than 8 weeks gestation of - Other specified diseases and conditions complicating - Other specified diseases and conditions complicating - Nicotine dependence, unspecified, uncomplicated - Unspecified abdominal pain - Alcohol abuse, uncomplicated - Smoking (tobacco) complicating , first trimester - Alcohol use complicating , first trimester 02/16/2020 19:35 [facility] [place] TYPE: Emergency [...] - Nicotine dependence, unspecified, uncomplicated 10/25/2019 08:[address] [address] [facility] [place] TYPE: Emergency COMPLAINT: - RIGHT HAND INJURY DIAGNOSES: - Pain in right hand - Striking against or struck by other objects, initial encounter - Contusion of right hand, initial encounter - Nicotine dependence, unspecified, uncomplicated INPATIENT VISIT TRACKING (12 MO.) No inpatient visits to display in this time frame [email or web address]
[2020-09-30] MEDS ORDERED: PRENATAL FORMU1 EAC3 PO (22:21)
== END 2020-09-30 23:57 | disposition home or self-care (01) ==
LOC: ED 22:08
DX: O99.891 Other specified diseases and conditions complicating pregnancy (principal); R10.2 Pelvic and perineal pain; Z3A.11 11 weeks gestation of pregnancy; Z87.891 Personal history of nicotine dependence
CPT/HCPCS: 76801; 80053; 81001; 83690; 84702; 85025; 99284-25

== ENCOUNTER 2020-11-12 08:55 | Emergency (ER) | payer OTHER ==
[~2020-11-12] VITALS: Ht 160 cm; Wt 91.6 kg
[~2020-11-12 08:55] MED LIST changes: +PRENATAL FORMU1 EAC3 PO
--- OUTSIDE RECORDS SUMMARY | 2020-11-12 09:06 | XMS ---
PreManage Notification: YUE KING Security Security Services Specialist Events No recent Security Events currently on file CRITERIA MET - Group Notification CARE PROVIDERS ALOK MITCHELL Nurse Practitioner 01/22/2019-Current PHONE: [phone] [facility] 04/03/2019-[facility] PHONE: [phone] Donavon has no Care Guidelines for this patient. Care History Medical/Surgical 12/24/2019 [facility] -PATIENT OBGYN APT WITH DR VARELA - 01/03/2020. 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 - PATIENT HAS NOT SEEN PCP AT [facility] SINCE OCTOBER 2018. - PATIENT HAS A DIRECTOR PACKAGING FOR LEFT ANKLE/FOOT PAIN-ONGOING SINCE 2018- DIRECTOR PACKAGING DR ALVAREZ LAST SEEN 1 TIME ON 05/11/2018. - PLEASE HAVE PATIENT CONTACT DR ALVAREZ FOR CHRONIC LEFT FOOT PAIN: [address] [place] [address] P: [phone] 01/22/2019 [facility] \T\middot;\T\nbsp; PATIENT IS A [facility]IGIBLE. \T\middot;\T\nbsp; PLEASE REFER PATIENT TO [facility] FOR NON EMERGENT MEDICAL NEEDS. \T\middot;\ T\nbsp; [facility] CAN SEE PATIENTS SAME DAY FOR APTS IF PATIENT CALLS FIRST THING IN THE MORNING. E.D. VIS[facility] (12 MO.) [facility] T[facility] 5 NOTE: Visits indicate total known visits. ED/UCC VISIT TRACKING (12 MO.) 11/12/2020 08:56 [facility] [place] [place] [facility] Emergency COMPLAINT: - HEADACHE,VOMITING 09/30/2020 22:09 [facility] [place] TYPE: Emergency COMPLAINT: - LT SIDE PAIN/11 WEEKS DIAGNOSES: - Unspecified abdominal pain - 11 weeks gestation of - Personal history of nicotine dependence - Pelvic and perineal pain - Other specified diseases and conditions complicating 04/01/2020 17:07 [facility] [place] TYPE: Emergency [...] gestation of - Nicotine dependence, unspecified, uncomplicated INPATIENT VISIT TRACKING (12 MO.) No inpatient visits to display in this time frame [email or web address]
== END 2020-11-12 12:04 | disposition home or self-care (01) ==
LOC: ED 08:55
DX: O99.352 Diseases of the nervous system complicating pregnancy, second trimester (principal); G43.909 Migraine, unspecified, not intractable, without status migrainosus; Z3A.17 17 weeks gestation of pregnancy
CPT/HCPCS: 96374; 96375; 99283-25; J0780; J1200; J2765; J3475; J7030

== ENCOUNTER 2021-04-14 05:39 | Inpatient (IN) | payer OTHER ==
[~2021-04-14] VITALS: Ht 160 cm; Wt 112.5 kg
--- NOTE | 2021-04-14 06:12 | NUR ---
PT WAS SWABBED FOR COVID 19
--- NOTE | 2021-04-14 13:47 | PR ---
[facility] [address] [place], [place] [address] Signed Progress Notes IP Datetime Report Generated by CPN: 04/14/2021 13:47 PROGRESS NOTES: [id number] Impression: Normal Progression of Labor; Reassuring Heart Rate Procedures: Intrauterine Pressure Catheter; Scalp Electrode; Sterile Vag Exam Plan: Continue Present Management Informed Consent Obtain: Vaginal Delivery Other Informed Consents: Discussed indications for augmentation VITAL SIGNS: [id number] Vital Signs: Reviewed; Within Normal Limits EXAM: [id number] Dilatation: 6.0 Effacement: 75 Station: -3 Contractions: Irregular MEMBRANES: [id number] Comments: Pt seen and examined. Doing well. Contractions irregular and slow cervical change noted. Discussed IUPC and indications for pitocin. After reviewing ctxs w/ tocomoter, recommend low dose pit per protocol. FETUS A: [id number] FHR Baseline: 130 Variability: Moderate 6-25bpm Accelerations: 15X15 Decelerations: None FHR Category: Category I Presentation: Vertex Comments on Fetus A: No evidence of metabolic acidosis FETUS B: [id number] Signing Physician: Massiel Aaron DO Copies: ~ *Electronically Signed* 04/14/21 9524 MASSIEL AARON DO PATIENT NAME: YUE KING PROGRESS NOTE DATE OF : 97 PHYSICIAN: MASSIEL AARON DO RPT #: [id number] REPORT IS CONFIDENTIAL AND NOT TO BE RELEASED WITHOUT AUTHORIZATION
--- NOTE | 2021-04-14 16:17 | PR ---
[facility] [address] [place], [place] [address] Signed Progress Notes IP Datetime Report Generated by NAINA: 04/14/2021 16:17 PROGRESS NOTES: [id number] Impression: Normal Progression of Labor; Reassuring Heart Rate Other Impressions: Slow progress; inadequate CTXs Procedures: Intrauterine Pressure Catheter; Scalp Electrode; Sterile Vag Exam Other Procedures: Reviewed FHT Plan: Continue Present Management Informed Consent Obtain: Vaginal Delivery Other Informed Consents: Discussed indications for augmentation VITAL SIGNS: [id number] Vital Signs: Reviewed; Within Normal Limits EXAM: [id number] Dilatation: 6.0 Effacement: 75 Station: -3 Contractions: Irregular MEMBRANES: [id number] Comments: Pt seen and examined. Doing well. Comfortable w/ epidural. Pitocin increasing per protocol. Reviewed slow progression of labor, inadequate contractions, EFW, adequate pelvis, and anticipated course of labor / delivery. All questions answered. Continue current management. FETUS A: [id number] FHR Baseline: 130 Variability: Moderate 6-25bpm Accelerations: 15X15 Decelerations: None FHR Category: Category I Presentation: Vertex Comments on Fetus A: No evidence of metabolic acidosis FETUS B: [id number] Signing Physician: Massiel Aaron DO Copies: ~ *Electronically Signed* 04/14/21 9195 MASSIEL AARON DO PATIENT NAME: FORESTANALISA TOSCANOYUE CHAPA PROGRESS NOTE DATE OF : [birth year] PHYSICIAN: MASSIEL AARON DO RPT #: [id number] REPORT IS CONFIDENTIAL AND NOT TO BE RELEASED WITHOUT AUTHORIZATION
--- NOTE | 2021-04-14 18:12 | PR ---
[facility] [address] [place], [place] [address] Signed Progress Notes IP Datetime Report Generated by CPJames: 04/14/2021 18:12 PROGRESS NOTES: [id number] Impression: Normal Progression of Labor; Reassuring Heart Rate Other Impressions: Slow progress; inadequate CTXs Procedures: Sterile Vag Exam Other Procedures: Reviewed FHT Plan: Continue Present Management Other Plans: Continue increasing pitocin per protocol Informed Consent Obtain: Vaginal Delivery Other Informed Consents: Discussed indications for augmentation VITAL SIGNS: [id number] Vital Signs: Reviewed; Within Normal Limits EXAM: [id number] Dilatation: 7.0 Effacement: 80 Station: -2 Contractions: Irregular MEMBRANES: [id number] Comments: Pt seen and examined. Doing well. Comfortable w/ contractions. Ctxs continue to be inadequate despite increasing doses of pitocin. Will continue to increase pitocin per protcol. Reviewed carrizales passage and passenger and adequate passage. Anticipate . All questions answered FETUS A: [id number] FHR Baseline: 130 Variability: Moderate 6-25bpm Accelerations: 15X15 Decelerations: None FHR Category: Category I Presentation: Vertex Comments on Fetus A: No evidence of metabolic acidosis FETUS B: [id number] Signing Physician: Massiel Varela DO Copies: ~ *Electronically Signed* 04/14/211811 MASSIEL VARELA DO PATIENT NAME: FORESTANALISA YUE BLACKWELL PROGRESS NOTE DATE OF : [birth year] PHYSICIAN: MASSIEL VARELA DO RPT #: [id number] REPORT IS CONFIDENTIAL AND NOT TO BE RELEASED WITHOUT AUTHORIZATION
--- NOTE | 2021-04-14 21:03 | PR ---
[facility] [address] [place], [place] [address] Signed Progress Notes IP Datetime Report Generated by CPN: 04/14/2021 21:03 PROGRESS NOTES: [id number] Impression: Normal Progression of Labor; Reassuring Heart Rate Other Impressions: Slow progress; inadequate CTXs Procedures: Sterile Vag Exam Other Procedures: Reviewed FHT Plan: Anticipate Vaginal Delivery Other Plans: Continue increasing pitocin per protocol Informed Consent Obtain: Vaginal Delivery Other Informed Consents: Discussed indications for augmentation VITAL SIGNS: [id number] Vital Signs: Reviewed; Within Normal Limits EXAM: [id number] Dilatation: 10.0 Effacement: 100 Station: 0 Contractions: Irregular MEMBRANES: [id number] Comments: Pt seen and examined. Doing well. Comfortable w/ epidural rebolus. CTXs now regular and adequate, and cervix complete. Reviewed adequate pelvis and progress, and anticipate . All questions answered FETUS A: [id number] FHR Baseline: 130 Variability: Moderate 6-25bpm Accelerations: 15X15 Decelerations: None FHR Category: Category I Presentation: Vertex Comments on Fetus A: No evidence of metabolic acidosis FETUS B: [id number] Signing Physician: Massiel Aaron DO Copies: ~ *Electronically Signed* 04/14/212102 MASSIEL AARON DO PATIENT NAME: PILAR BLACKWELLYUECLAY HASSAN PROGRESS NOTE DATE OF : [birth year] PHYSICIAN: MASSIEL AARON DO RPT #: [id number] REPORT IS CONFIDENTIAL AND NOT TO BE RELEASED WITHOUT AUTHORIZATION
--- NOTE | 2021-04-16 14:10 | PR ---
[facility] [address] [facility] [place], [place] [address] Signed PP Progress Notes Datetime Report Generated by CPN: 04/16/2021 14:10 SUBJECTIVE: [id number] Pain: Within Normal Limits Nausea/Vomiting: Denies Flatus: Yes Bowel Movement: No Vital Signs: [id number] Vital Signs: Reviewed; Within Normal Limits Cardiovascular: Normal Respiratory: Normal Abdomen/Uterus: Normal Lochia: Normal Vulva/Perineum: Not Done Breasts: Not Done CVA Tenderness: Normal Extremities: Normal Incision: Not Applicable Progress: Normal Exam Comments: Fundus firm U-2 nontender IMPRESSION/PLAN/PROCEDURES: [id number] Impression: Normal Progression Plan: Discharge Progress Notes: Pt seen and examined. Doing well. Ambulating, voiding, and tolerating full diet. Pain and lochia minimal. without difficulty. No concerns and desires d/c home. Reviewed pp education and instructions in detail. All questions answered. Planning [employer] pp Signing Physician: Massiel Aaron DO Copies: ~ *Electronically Signed* 04/16/21 1410 MASSIEL AARON DO PATIENT NAME: YUE KING PROGRESS NOTE DATE OF : 97 PHYSICIAN: MASSIEL AARON DO RPT #: [id number] REPORT IS CONFIDENTIAL AND NOT TO BE RELEASED WITHOUT AUTHORIZATION
== END 2021-04-16 15:05 | disposition home or self-care (01) | DRG 807 ==
LOC: FBC 05:39
PROVIDERS: ADMIT Obstetrics & Gynecology; ATTEND Obstetrics & Gynecology
PROC: 10E0XZZ Delivery of Products of Conception, External Approach (ICD-10-PCS; principal; 2021-04-14)
PROC: 3E0R3BZ Introduction of Anesthetic Agent into Spinal Canal, Percutaneous Approach (ICD-10-PCS; 2021-04-14)
PROC: 00HU33Z Insertion of Infusion Device into Spinal Canal, Percutaneous Approach (ICD-10-PCS; 2021-04-14)
DX: O36.63X0 Maternal care for excessive fetal growth, third trimester, not applicable or unspecified (principal); Z37.0 Single live birth; O40.3XX0 Polyhydramnios, third trimester, not applicable or unspecified; O69.81X0 Labor and delivery complicated by cord around neck, without compression, not applicable or unspecified; Z20.822 Contact with and (suspected) exposure to COVID-19; O99.214 Obesity complicating childbirth; E66.9 Obesity, unspecified; Z3A.39 39 weeks gestation of pregnancy; Z87.891 Personal history of nicotine dependence
CPT/HCPCS: 85027; A9270; J2405; J2590; J2795; J3010; U0003

== ENCOUNTER 2021-04-28 23:00 | Emergency (ER) | payer OTHER ==
[~2021-04-28] VITALS: Ht 160 cm; Wt 101.6 kg
--- NOTE | ~2021-04-28 | EKG ---
[facility] [address] [facility], [place] [address] Draft EKG completed, results pending confirmation PATIENT NAME: YUE KING Electrocardiogram DATE OF : [birth year] PHYSICIAN: PRELIMINARY REPORT #: [id number] REPORT IS CONFIDENTIAL AND NOT TO BE RELEASED WITHOUT AUTHORIZATION
[~2021-04-28 23:00] MED LIST changes: +DICLOXACILLIN500 MG PO; +HYDROXYZINE HCL25 MG PO; +IBUPROFEN200 M1 PO; +MAGOX 400400 MG PO; +PRENATAL FORMU1 EAC2 PO; +TYLENOL325 MG PO; +VENTOLIN HFA18 GM INH
--- OUTSIDE RECORDS SUMMARY | 2021-04-28 23:08 | XMS ---
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 Care History Medical/Surgical 12/24/2019 [facility] -PATIENT OBGYN APT WITH DR VARELA - 01/03/2020. 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 - PATIENT HAS NOT SEEN PCP AT [facility] SINCE OCTOBER 2018. 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 - PLEASE HAVE PATIENT CONTACT DR ALVAREZ FOR CHRONIC LEFT FOOT PAIN: [address] [place] [address] P: [phone] 01/22/2019 [facility] \T\middot;\T\nbsp; PATIENT IS A [facility] ELIGIBLE. \T\middot;\T\nbsp; PLEASE REFER PATIENT TO [facility] FOR NON EMERGENT MEDICAL NEEDS. \T\middot;\ T\nbsp; [facility] CAN SEE PATIENTS SAME DAY FOR APTS IF PATIENT CALLS FIRST THING IN THE MORNING. E.D. VISIT COUNT (12 MO.) 4 [facility] TOTAL 4 NOTE: Visits indicate total known visits. ED/UCC VISIT TRACKING (12 MO.) 04/28/2021 23:01 [facility] TYPE: Emergency COMPLAINT: - CHEST PAIN, SOB 04/25/2021 23:33 [facility] TYPE: Emergency COMPLAINT: - DIZZY, NAUSEA, FEVER, MASTITIS 11/12/2020 08:56 [facility] TYPE: Emergency COMPLAINT: - HEADACHE,VOMITING DIAGNOSES: - Diseases of the nervous system complicating , second trimester - Headache, unspecified - 17 weeks gestation of - Migraine, unspecified, not intractable, without status migrainosus 09/30/2020 22:09 [facility] TYPE: Emergency COMPLAINT: - LT SIDE PAIN/11 WEEKS DIAGNOSES: - Unspecified abdominal pain - 11 weeks gestation of - Personal history of nicotine dependence - Pelvic and perineal pain - Other specified diseases and conditions complicating INPATIENT VISIT TRACKING (12 MO.) 04/25/2021 23:34 [facility] TYPE: Observation COMPLAINT: - MASTITIS DIAGNOSES: - Nonpurulent mastitis associated with - Mastitis without abscess - Personal history of nicotine dependence 04/14/2021 05:39 [facility] [place] TYPE: [facility] COMPLAINT: - INDUCTION DIAGNOSES: - 39 weeks gestation of - Maternal care for excessive growth, third trimester, not applicable or unspecified - Polyhydramnios, third trimester, not applicable or unspecified - Personal history of nicotine dependence - Single live - 39 weeks gestation of - Post-term - Labor and delivery complicated by cord around neck, without compression, not applicable or unspecified - Obesity complicating childbirth - Obesity complicating childbirth - Polyhydramnios, third trimester, not applicable or unspecified - Single live - Obesity, unspecified - Obesity, unspecified - Labor and delivery complicated by cord around neck, without compression, not applicable or unspecified - Personal history of nicotine dependence [email or web address]
== END 2021-04-29 02:18 | disposition home or self-care (01) ==
LOC: ED 23:00
DX: R07.89 Other chest pain (principal); Z87.891 Personal history of nicotine dependence; Z79.899 Other long term (current) drug therapy
CPT/HCPCS: 71046; 71260; 84484; 85379; 93005; 93010; 99285-25; Q9967